=== PATIENT | male | born 1930 | race American Indian/Alaskan Native ===

== ENCOUNTER 2018-06-18 08:22 | Day surgery (SDC) | payer MEDICARE ==
[2018-06-18 10:00] LABS: Calcium 9.1 mg/dL (8.4-10.2)
[2018-06-18] MEDS ORDERED: NACL 0.9% 1000 ML 1,000 ML IV SCH (10:00)
[2018-06-18 13:42] VITALS: BP 146/85
--- NOTE | 2018-06-18 14:39 | Cat Scan Report ---
FINAL REPORT EXAM: CT ANGIO ABDOMEN PELVIS HISTORY: anuersym COMPARISON: None. TECHNIQUE: Multiple contiguous axial images were obtained from the lung bases to the pubic symphysis after administration of IV contrast. Reformatted sagittal and coronal images were available for review. 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 The aneurysm extends along a length of approximately 10 centimeters. There is intramural thrombus. There is also an aneurysm of the right common iliac artery, which measures up to 3.3 centimeters in diameter and an aneurysm of the left common iliac artery, which measures up to 2.6 centimeters in diameter. The celiac axis is patent. 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 The bilateral renal arteries are patent. The inferior mesenteric artery is not visualized and may be occluded. Lung bases: Minimal peripheral fibrotic changes. Visualized heart and mediastinum: Mild cardiomegaly. Scattered coronary artery calcifications. Liver: Normal. Spleen: Normal. Pancreas: 2.6 x 2.8 centimeter cystic lesion of the pancreatic tail. Gallbladder and Biliary Tree: No calcified gallstones. No biliary ductal dilatation. Adrenal glands: Normal. Kidneys: Symmetric enhancement to both kidneys. Several simple appearing cysts of the right kidney, measuring up to 4.2 centimeters. No hydronephrosis. Bladder: Normal. Pelvic organs: Normal prostate gland and seminal vesicles. Bowel: No evidence of obstruction. No focal wall thickening. Diverticulosis of the descending and sigmoid colon without evidence of diverticulitis. There is a ventral hernia that contains portions of the small bowel. There is no evidence of associated obstruction or incarceration. Peritoneum: No significant mesenteric adenopathy. No free air or free fluid. Bones and soft tissues: No suspicious osseous lesions.No acute fracture or dislocation. Multilevel degenerative changes of the spine. 6 x 7 centimeter midline ventral hernia containing fat and loops of small bowel. The hernia neck measures approximately 4.7 centimeters. Smaller fat containing ventral hernia, just to the left of midline measuring approximately 2 centimeters in size. IMPRESSION: 1. 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 There is a large amount of intramural plaque. 2. 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 3. 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 4. Two ventral hernias. The largest measures approximately 6 x 7 centimeters and contains fat as well as loops of small bowel. There is no evidence of associated bowel obstruction or incarceration. 5. 2.6 x 2.8 centimeters cystic lesion of the pancreatic tail. Differential diagnosis includes a cyst or pseudocyst, IPMN, or other cystic neoplasm. Recommend comparison to any previous studies. Consider further evaluation with MRI pancreatic protocol. 6. Simple cysts of the right kidney. 7. Scattered coronary artery calcifications.
== END 2018-06-18 16:00 | disposition home or self-care (01) ==
LOC: CATHLABREC 08:22 → EDSTATUS 08:45 → CATHLABREC 14:00
PROVIDERS: ATTEND Surgery Vascular Surgery
DX: I71.4 Abdominal aortic aneurysm, without rupture (principal); I72.3 Aneurysm of iliac artery; I25.10 Atherosclerotic heart disease of native coronary artery without angina pectoris; E11.22 Type 2 diabetes mellitus with diabetic chronic kidney disease; I13.10 Hypertensive heart and chronic kidney disease without heart failure, with stage 1 through stage 4 chronic kidney disease, or unspecified chronic kidney disease; N18.4 Chronic kidney disease, stage 4 (severe); E78.5 Hyperlipidemia, unspecified; Z98.890 Other specified postprocedural states
CPT/HCPCS: 36415; 74174; 80048; 96360; 96361; J7030; Q9967

== ENCOUNTER 2018-07-17 06:28 | Day surgery (SDC) | payer MEDICARE ==
[~2018-07-17 06:28] MED LIST: ANCEF/STERILE WATER 2 GM/20 ML 2 GM/20 ML SYRINGE IV NR; NACL 0.9% 1000 ML 1,000 ML IV SCH
[2018-07-17 07:35] LABS: Hematocrit 34.2 % (35.5-45.6); Hemoglobin 11.1 gm/dl (11.8-15.2); Mean Corpuscular HGB Conc 32 % (32-34); Mean Corpuscular Hemoglobin 28 pg (28-32); Mean Corpuscular Volume 87 fl (84-94); Platelet Count 274 K/mm3 (140-440); Red Blood Count 3.96 M/mm3 (3.65-5.03); Red Cell Distribution Width 16.5 % (13.2-15.2)
[2018-07-17 07:47] LABS: INR 1.05 (0.87-1.13)
[2018-07-17 07:48] LABS: Partial Thromboplastin Time 31.1 Sec. (24.2-36.6)
[2018-07-17 08:01] LABS: Calcium 9.2 mg/dL (8.4-10.2)
[2018-07-17] MEDS ORDERED: HEPARIN/NS 5000 UNIT/500ML(CATH LAB) 1,000 ML IR ONE (09:43)
[2018-07-17] MEDS ORDERED: XYLOCAINE 2% INFILTRATI ONE (09:44)
[2018-07-17] MEDS ORDERED: ANCEF/STERILE WATER 2 GM/20 ML 2 GM/20 ML SYRINGE IV ONE (10:17)
[2018-07-17] MEDS: VERSED ONE ×2 (10:21→12:16)
[2018-07-17] MEDS: SUBLIMAZE ONE ×2 (10:21→12:16)
[2018-07-17 11:31] LABS: Basophils % (Manual) 0 % (0.0-1.8); Total Cells Counted 100
[2018-07-17 11:32] LABS: Anisocytosis 1+; Ovalocytes Few; Platelet Estimate Cons; Poikilocytosis Few
[2018-07-17] MEDS: HEPARIN 10,000 UNITS/10 ML ONE ×4 (11:33→12:46)
[2018-07-17] MEDS ORDERED: HEPARIN/NS 5000 UNIT/500ML(CATH LAB) 500 ML IR ONE (11:52)
[2018-07-17] MEDS ORDERED: VERSED ONE (12:47)
[2018-07-17] MEDS ORDERED: SUBLIMAZE ONE (12:47)
--- NOTE | 2018-07-17 13:53 | Operative Report ---
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 Postoperative diagnosis: Same. Operation: Bilateral common femoral artery access under ultrasound guidance. Embolization of right. Surgeon: Fabiola Dover. Asst.: Lucas Boateng Anesthesia: moderate sedation. EBL: 50cc Findings: Right common iliac aneurysm. Indications: 87-year-old gentleman with large abdominal aortic and right common iliac aneurysm in preparation for repair scheduled to get right internal iliac artery embolization. Patient was explained the procedure in detail including all risks, benefits and alternatives of procedure. He chose to proceed and signed informed consent. Operative details: Patient was brought to the Photocopying Equipment Repairer and placed in supine position. Bilateral groins were prepped and draped in sterile fashion. Timeout was performed and all team members in agreement. Initially accessed right common femoral artery with ultrasound guidance with micropuncture needle after local anesthetic injected. Pressure wire was inserted and multiple tissue was inserted over the wire. I initially attempted to advance Bentson wire, however the right external iliac was very tortuous and I changed to stiff Napoleon wire. That was able to be advanced into the distal aorta. Changed posterior sheath to 5 Georgian access sheath. Omni flush catheter was advanced into common iliac bifurcation and multiple stems were made to get using regular leg were, stiff Glidewire,V18. I also attempted to use Rim catheter, unsuccessful. Next, left common femoral artery was accessed under US guidance, that was exchanged to a micropuncture sheath over the wire. Then I used a stiff Glidewire and advanced to the distal aorta. I attempted to get up and over into contralateral internal iliac artery using Omni flush catheter was unsuccessful. Of note, during procedure patient was heparinized initially was 2000 heparin redosed 1045 minutes. At this point, Dr. Boateng attempted to use ipsilateral side to cannulate the internal iliac artery using SOS 2 catheter. After a few attempts that was successful. The nose of the catheter was positioned in the right internal iliac artery. Choice PT wire was advanced into the artery followed by Renegade microcatheter. We used 6 coils: PV 20 x 50 Hellix x 3, 16x 40 3D, 14 x40 3D, 12x40 3D. Both access sites were closed with Accuseal
--- NOTE | 2018-07-17 13:58 | Short Stay Summary ---
Short Stay Documentation Date of service: 07/17/18 - History H&P: obtained from office - Allergies and Medications Current Medications: Allergies No Known Allergies Allergy (Verified 07/17/18 07:04) Home Medications Medication Instructions Recorded Confirmed Last Taken Type Carvedilol [Coreg] 12.5 mg PO DAILY 06/18/18 07/17/18 07/17/18 History Clonidine HCl [Kapvay] 0.1 mg PO DAILY 06/18/18 07/17/18 07/16/18 History Furosemide [Lasix] 40 mg PO DAILY 06/18/18 07/17/18 07/15/18 History Losartan Potassium [Cozaar] 25 mg PO DAILY 06/18/18 07/17/18 07/17/18 History amLODIPine [Norvasc] 5 mg PO DAILY 06/18/18 07/17/18 07/17/18 History Pantoprazole [Protonix] 40 mg PO QDAY 07/17/18 07/17/18 07/03/18 History Rosuvastatin Calcium [Crestor] 40 mg PO DAILY 07/17/18 07/17/18 07/15/18 History Active Medications Cefazolin Sodium (Ancef/Sterile Water 2 Gm/20 Ml) 2 gm in 20 mls @ 80 mls/hr IV PREOP NR; Protocol Stop: 07/17/18 23:59 Sodium Chloride (Nacl 0.9% 1000 Ml) 1,000 mls @ 42 mls/hr IV DIRECT KANG Last Admin: 07/17/18 08:04 Dose: 42 mls/hr - Brief post op/procedure progress note Date of procedure: 07/17/18 Pre-op diagnosis: AAA with right common iliac artery aneurysm Post-op diagnosis: same Procedure: right internal iliac artery embolisation Anesthesia: MAC Surgeon: CHIARA CHAMBERLAIN Deboning Team Leader: CRISTHIAN VARGAS Estimated blood loss: 50-100ml Pathology: none Condition: stable - Disposition Condition at discharge: Good Disposition: DC-01 TO HOME OR SELFCARE Short Stay Discharge Plan Diet: advance as tolerated Wound: open to air Special Instructions: no heavy lifting Follow up with: CHIARA CHAMBERLAIN DO [Primary Care Provider] - 14 Days Prescriptions: Acetaminophen/Codeine [Tylenol /Codeine # 3 tab] 1 tab PO Q6H PRN #30 tab PRN Reason: Pain , Severe (7-10)
[2018-07-17 15:57] VITALS: BP 153/95
== END 2018-07-17 16:00 | disposition home or self-care (01) ==
LOC: CATHLABREC 06:28
PROVIDERS: ATTEND Surgery Vascular Surgery
DX: I71.4 Abdominal aortic aneurysm, without rupture (principal); I10 Essential (primary) hypertension; E78.00 Pure hypercholesterolemia, unspecified; K21.9 Gastro-esophageal reflux disease without esophagitis; M19.90 Unspecified osteoarthritis, unspecified site; Z98.890 Other specified postprocedural states; Z85.038 Personal history of other malignant neoplasm of large intestine; Z79.899 Other long term (current) drug therapy; Z87.891 Personal history of nicotine dependence; Z98.42 Cataract extraction status, left eye; Z98.41 Cataract extraction status, right eye; Z79.01 Long term (current) use of anticoagulants
CPT/HCPCS: 36415; 37242; 80048; 85007; 85025; 85610; 85730; C1760; C1769; C1887; J0690; J1644; J2250; J3010; J7030; Q9967

== ENCOUNTER 2018-09-06 19:47 | Inpatient (IN) | payer MEDICARE ==
[2018-09-06 21:17] LABS: Bilirubin,Urine NEG (Negative); Blood,Urine SM (Negative); Color,Urine Straw (Yellow); Protein,Urine <15 mg/dL mg/dL (Negative); Urobilinogen,Urine < 2.0 mg/dL (<2.0)
[2018-09-06 21:47] LABS: Hemoglobin 10.3 gm/dl (11.8-15.2); Red Blood Count 3.81 M/mm3 (3.65-5.03)
[2018-09-06 21:48] LABS: Hematocrit 31.4 % (35.5-45.6); Mean Corpuscular HGB Conc 33 % (32-34); Mean Corpuscular Hemoglobin 27 pg (28-32); Mean Corpuscular Volume 83 fl (84-94); Platelet Count 348 K/mm3 (140-440); Red Cell Distribution Width 18.4 % (13.2-15.2)
[2018-09-06 21:52] LABS: Albumin 3.8 g/dL (3.9-5); Calcium 9.4 mg/dL (8.4-10.2)
[2018-09-06 22:45] LABS: Total Cells Counted 100
[2018-09-06 22:46] LABS: Platelet Estimate Consistent w Auto
--- NOTE | 2018-09-06 23:40 | Emergency Department Report ---
ED Abdominal Pain HPI - General Chief Complaint: Abdominal Pain Stated Complaint: ABD PAIN Time Seen by Provider: 09/06/18 23:39 Source: patient Mode of arrival: Ambulatory Limitations: No Limitations - History of Present Illness Initial Comments: Patient c/o epigastric abdominal pain which has been on going for 1 week. Complaint: abdominal pain -: Gradual, week(s) (1) Location: epigastric Radiation: none Migration to: no migration Severity: moderate Severity scale (0 -10): 5 Quality: sharp Consistency: constant Improves With: nothing Worsens With: nothing Associated Symptoms: denies other symptoms - Related Data Home Medications Medication Instructions Recorded Confirmed Last Taken Carvedilol [Coreg] 12.5 mg PO DAILY 06/18/18 07/27/18 07/26/18 12.5mg Clonidine HCl [Kapvay] 0.1 mg PO DAILY 06/18/18 07/27/18 07/26/18 0.1mg Furosemide [Lasix] 40 mg PO DAILY 06/18/18 07/27/18 07/26/18 40mg Losartan Potassium [Cozaar] 25 mg PO DAILY 06/18/18 07/27/18 07/26/18 25mg amLODIPine [Norvasc] 5 mg PO DAILY 06/18/18 07/27/18 07/26/18 5mg Pantoprazole [Protonix TAB] 40 mg PO QDAY 07/17/18 07/27/18 07/26/18 40mg Rosuvastatin Calcium [Crestor] 40 mg PO DAILY 07/17/18 07/27/18 07/26/18 1 tab Brimonidine Tartrate [Brimonidine 1 drop INTRAOCULA BID 07/27/18 07/27/18 Tartrate 0.2%] 1 drop Latanoprost 0.005% 1 drop INTRAOCULA HS 07/27/18 07/27/18 07/26/18 1 drop Previous Rx's Medication Instructions Recorded Last Taken Type Acetaminophen/Codeine [Tylenol 1 tab PO Q6H PRN #30 tab 07/17/18 07/26/18 Rx /Codeine # 3 tab] 1 tab oxyCODONE /ACETAMINOPHEN [Percocet 1 tab PO Q6HR PRN #20 tablet 07/29/18 Unknown Rx 5/325] Allergies Allergy/AdvReac Type Severity Reaction Status Date / Time No Known Allergies Allergy Verified 07/17/18 07:04 ED Review of Systems ROS: Stated complaint: ABD PAIN Other details as noted in HPI Comment: All other systems reviewed and negative Constitutional: denies: chills, fever Eyes: denies: eye pain ENT: denies: ear pain Respiratory: denies: cough, orthopnea, shortness of breath Cardiovascular: denies: chest pain, palpitations, dyspnea on exertion Endocrine: no symptoms reported Gastrointestinal: abdominal pain. 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) Hx Arthritis: Yes Hx Seizures: No - Surgical History Past Surgical History?: Yes Hx Internal Defibrillator: No Additional Surgical History: abd - Social History Smoking Status: Former Smoker Substance Use Type: None - Medications Home Medications: Home Medications Medication Instructions Recorded Confirmed Last Taken Type Carvedilol [Coreg] 12.5 mg PO DAILY 06/18/18 07/27/18 07/26/18 History 12.5mg Clonidine HCl [Kapvay] 0.1 mg PO DAILY 06/18/18 07/27/18 07/26/18 History 0.1mg Furosemide [Lasix] 40 mg PO DAILY 06/18/18 07/27/18 07/26/18 History 40mg Losartan Potassium [Cozaar] 25 mg PO DAILY 06/18/18 07/27/18 07/26/18 History 25mg amLODIPine [Norvasc] 5 mg PO DAILY 06/18/18 07/27/18 07/26/18 History 5mg Acetaminophen/Codeine [Tylenol 1 tab PO Q6H PRN #30 tab 07/17/18 07/27/18 Rx /Codeine # 3 tab] 1 tab Pantoprazole [Protonix TAB] 40 mg PO QDAY 07/17/18 07/27/1818 History 40mg Rosuvastatin Calcium [Crestor] 40 mg PO DAILY 07/17/18 07/27/18 07/26/18 History 1 tab Brimonidine Tartrate [Brimonidine 1 drop INTRAOCULA BID 07/27/18 07/27/18 History Tartrate 0.2%] 1 drop Latanoprost 0.005% 1 drop INTRAOCULA HS 07/27/18 07/27/18 07/26/18 History 1 drop oxyCODONE /ACETAMINOPHEN [Percocet 1 tab PO Q6HR PRN #20 tablet 07/29/18 Unknown Rx 5/325] ED Physical Exam - General Limitations: No Limitations General appearance: alert, in no apparent distress - Head Head exam: Present: atraumatic, normocephalic, normal inspection - Eye Eye exam: Present: normal appearance, PERRL, EOMI Pupils: Present: normal accommodation - ENT ENT exam: Present: normal exam, normal orophraynx, mucous membranes moist - Neck Neck exam: Present: normal inspection, full ROM. Absent: tenderness - Respiratory Respiratory exam: Present: normal lung sounds bilaterally. Absent: respiratory distress, wheezes, rales, rhonchi, stridor - Cardiovascular Cardiovascular Exam: Present: regular rate, normal rhythm, normal heart sounds - GI/Abdominal GI/Abdominal exam: Present: soft, tenderness (Epigastic), normal bowel sounds. Absent: distended, guarding, rebound, rigid - Extremities Exam Extremities exam: Present: normal inspection, full ROM, normal capillary refill - Back Exam Back exam: Present: normal inspection, full ROM. Absent: tenderness - Neurological Exam Neurological exam: Present: alert, oriented X3, CN II-XII intact - Psychiatric Psychiatric exam: Present: normal affect, normal mood - Skin Skin exam: Present: warm, dry, intact, normal color. Absent: rash ED Course Vital Signs 09/06/18 09/07/18 09/07/18 20:08 01:23 01:30 Temperature 99.2 F Pulse Rate 89 Respiratory 18 Rate Blood Pressure 175/101 161/87 161/87 O2 Sat by Pulse 98 92 92 Oximetry 09/07/18 09/07/18 09/07/18 01:46 02:38 02:46 Temperature Pulse Rate Respiratory Rate Blood Pressure 132/80 132/80 144/71 O2 Sat by Pulse 94 94 93 Oximetry 09/07/18 09/07/18 03:00 03:16 Temperature Pulse Rate Respiratory Rate Blood Pressure 144/71 140/77 O2 Sat by Pulse 91 92 Oximetry - Consultations Consultation #1: 09/07/18 04:32 I consulted the patients Vascular surgeon Dr Dover. She wants patient admitted by the hospitalist and she will evaluate patient in the morning. ED Medical Decision Making - Lab Data Result diagrams: 09/06/18 21:03 09/06/18 21:03 Lab Results 09/06/18 09/06/18 09/06/18 Range/Units 20:59 21:03 21:03 WBC 9.9 (4.5-11.0) K/mm3 RBC 3.81 (3.65-5.03) M/mm3 Hgb 10.3 L (11.8-15.2) gm/dl Hct 31.4 L (35.5-45.6) % MCV 83 L (84-94) fl MCH 27 L (28-32) pg MCHC 33 (32-34) % RDW 18.4 H (13.2-15.2) % Plt Count 348 (140-440) K/mm3 Lymph % (Auto) Director And Professor Webb % (Auto) Director And Professor Eos % (Auto) Director And Professor Baso % (Auto) Director And Professor Lymph # Director And Professor Webb # Director And Professor Eos # Director And Professor Baso # Director And Professor Add Manual Diff Complete Total Counted 100 Seg Neutrophils % Director And Professor Seg Neuts % (Manual) 63.0 (40.0-70.0) % Band Neutrophils % 0 % Lymphocytes % (Manual) 26.0 (13.4-35.0) % Reactive Lymphs % (Man) 0 % Monocytes % (Manual) 3.0 (0.0-7.3) % Eosinophils % (Manual) 7.0 H (0.0-4.3) % Basophils % (Manual) 1.0 (0.0-1.8) % Metamyelocytes % 0 % Myelocytes % 0 % Promyelocytes % 0 % Blast Cells % 0 % Nucleated RBC % Not Reportable Seg Neutrophils # Director And Professor Seg Neutrophils # Man 6.2 (1.8-7.7) K/mm3 Band Neutrophils # 0.0 K/mm3 Lymphocytes # (Manual) 2.6 (1.2-5.4) K/mm3 Abs React Lymphs (Man) 0.0 K/mm3 Monocytes # (Manual) 0.3 (0.0-0.8) K/mm3 Eosinophils # (Manual) 0.7 H (0.0-0.4) K/mm3 Basophils # (Manual) 0.1 (0.0-0.1) K/mm3 Metamyelocytes # 0.0 K/mm3 Myelocytes # 0.0 K/mm3 Promyelocytes # 0.0 K/mm3 Blast Cells # 0.0 K/mm3 WBC Morphology Not Reportable Hypersegmented Neuts Not Reportable Hyposegmented Neuts Not Reportable Hypogranular Neuts Not Reportable Smudge Cells Not Reportable Toxic Granulation Not Reportable Toxic Vacuolation Not Reportable Dohle Bodies Not Reportable Pelger-Huet Anomaly Not Reportable Rylie Rods Not Reportable Platelet Estimate Consistent w auto Clumped Platelets Not Reportable Plt Clumps, EDTA Not Reportable Large Platelets Not Reportable Giant Platelets Not Reportable Platelet Satelliting Not Reportable Plt Morphology Comment Not Reportable RBC Morphology Not Reportable Dimorphic RBCs Not Reportable Polychromasia Not Reportable Hypochromasia Not Reportable Poikilocytosis Not Reportable Anisocytosis Not Reportable Microcytosis Not Reportable Macrocytosis Not Reportable Spherocytes Not Reportable Pappenheimer Bodies Not Reportable Sickle Cells Not Reportable Target Cells Not Reportable Tear Drop Cells Not Reportable Ovalocytes Not Reportable Helmet Cells Not Reportable [place] Bodies Not Reportable [place] Rings Not Reportable Rock Cells Not Reportable Bite Cells Not Reportable Crenated Cell Not Reportable Elliptocytes Not Reportable Acanthocytes (Spur) Not Reportable Rouleaux Not Reportable Hemoglobin C Crystals Not Reportable Schistocytes Not Reportable Malaria parasites Not Reportable Gonzalo Bodies Not Reportable Hem Pathologist Commnt No Sodium 137 (137-145) mmol/L Potassium 4.7 (3.6-5.0) mmol/L Chloride 97.4 L (98-107) mmol/L Carbon Dioxide 26 (22-30) mmol/L Anion Gap 18 mmol/L BUN 23 H (9-20) mg/dL Creatinine 1.5 (0.8-1.5) mg/dL Estimated GFR 53 ml/min BUN/Creatinine Ratio 15 % Glucose 144 H (75-100) mg/dL Calcium 9.4 (8.4-10.2) mg/dL Total Bilirubin 0.20 (0.1-1.2) mg/dL AST 25 (5-40) units/L ALT 15 (7-56) units/L Alkaline Phosphatase 107 (35-129) units/L Total Protein 9.3 H (6.3-8.2) g/dL Albumin 3.8 L (3.9-5) g/dL Albumin/Globulin Ratio 0.7 % Lipase (13-60) units/L Urine Color Straw (Yellow) Urine Turbidity Clear (Clear) Urine pH 5.0 (5.0-7.0) Ur Specific [place] 1.006 (1.003-1.030) Urine Protein <15 mg/dl (Negative) mg/dL Urine Glucose (UA) Neg (Negative) mg/dL Urine Ketones Neg (Negative) mg/dL Urine Blood Sm (Negative) Urine Nitrite Neg (Negative) Urine Bilirubin Neg (Negative) Urine Urobilinogen < 2.0 (<2.0) mg/dL Ur Leukocyte Esterase Neg (Negative) Urine WBC (Auto) 1.0 (0.0-6.0) /HPF Urine RBC (Auto) 1.0 (0.0-6.0) /HPF U Epithel Cells (Auto) 1.0 (0-13.0) /HPF 09/07/18 Range/Units 00:02 WBC (4.5-11.0) K/mm3 RBC (3.65-5.03) M/mm3 Hgb (11.8-15.2) gm/dl Hct (35.5-45.6) % MCV (84-94) fl MCH (28-32) pg MCHC (32-34) % RDW (13.2-15.2) % Plt Count (140-440) K/mm3 Lymph % (Auto) Webb % (Auto) Eos % (Auto) Baso % (Auto) Lymph # Webb # Eos # Baso # Add Manual Diff Total Counted Seg Neutrophils % Seg Neuts % (Manual) (40.0-70.0) % Band Neutrophils % % Lymphocytes % (Manual) (13.4-35.0) % Reactive Lymphs % (Man) % Monocytes % (Manual) (0.0-7.3) % Eosinophils % (Manual) (0.0-4.3) % Basophils % (Manual) (0.0-1.8) % Metamyelocytes % % Myelocytes % % Promyelocytes % % Blast Cells % % Nucleated RBC % Seg Neutrophils # Seg Neutrophils # Man (1.8-7.7) K/mm3 Band Neutrophils # K/mm3 Lymphocytes # (Manual) (1.2-5.4) K/mm3 Abs React Lymphs (Man) K/mm3 Monocytes # (Manual) (0.0-0.8) K/mm3 Eosinophils # (Manual) (0.0-0.4) K/mm3 Basophils # (Manual) (0.0-0.1) K/mm3 Metamyelocytes # K/mm3 Myelocytes # K/mm3 Promyelocytes # K/mm3 Blast Cells # K/mm3 WBC Morphology Hypersegmented Neuts Hyposegmented Neuts Hypogranular Neuts Smudge Cells Toxic Granulation Toxic Vacuolation Dohle Bodies Pelger-Huet Anomaly Rylie Rods Platelet Estimate Clumped Platelets Plt Clumps, EDTA Large Platelets Giant Platelets Platelet Satelliting Plt Morphology Comment RBC Morphology Dimorphic RBCs Polychromasia Hypochromasia Poikilocytosis Anisocytosis Microcytosis Macrocytosis Spherocytes Pappenheimer Bodies Sickle Cells Target Cells Tear Drop Cells Ovalocytes Helmet Cells [place] Bodies [place] Rings Kisha Cells Bite Cells Crenated Cell Elliptocytes Acanthocytes (Spur) Rouleaux Hemoglobin C Crystals Schistocytes Malaria parasites Gonzalo Bodies Hem Pathologist Commnt Sodium (137-145) mmol/L Potassium (3.6-5.0) mmol/L Chloride (98-107) mmol/L Carbon Dioxide (22-30) mmol/L Anion Gap mmol/L BUN (9-20) mg/dL Creatinine (0.8-1.5) mg/dL Estimated GFR ml/min BUN/Creatinine Ratio % Glucose (75-100) mg/dL Calcium (8.4-10.2) mg/dL Total Bilirubin (0.1-1.2) mg/dL AST (5-40) units/L ALT (7-56) units/L Alkaline Phosphatase (35-129) units/L Total Protein (6.3-8.2) g/dL Albumin (3.9-5) g/dL Albumin/Globulin Ratio % Lipase 20 (13-60) units/L Urine Color (Yellow) Urine Turbidity (Clear) Urine pH (5.0-7.0) Ur Specific [place] (1.003-1.030) Urine Protein (Negative) mg/dL Urine Glucose (UA) (Negative) mg/dL Urine Ketones (Negative) mg/dL Urine Blood (Negative) Urine Nitrite (Negative) Urine Bilirubin (Negative) Urine Urobilinogen (<2.0) mg/dL Ur Leukocyte Esterase (Negative) Urine WBC (Auto) (0.0-6.0) /HPF Urine RBC (Auto) (0.0-6.0) /HPF U Epithel Cells (Auto) (0-13.0) /HPF - Radiology Data Radiology results: report reviewed, image reviewed - Medical Decision Making Patient will be evaluated by the Vascular Surgeon today. Critical Care Time: Yes Critical care time in (mins) excluding proc time.: 35 Critical care attestation.: If time is entered above; I have spent that time in minutes in the direct care of this critically ill patient, excluding procedure time. ED Disposition Clinical Impression: Abdominal pain Qualifiers: Abdominal location: epigastric Qualified Code(s): R10.13 - Epigastric pain AAA (abdominal aortic aneurysm) Qualifiers: Presence of rupture: without rupture Qualified Code(s): I71.4 - Abdominal aortic aneurysm, without rupture Disposition: -09 OP ADMIT IP TO THIS HOSP Is pt being admited?: Yes Does the pt Need Aspirin: No Condition: Stable Time of Disposition: 04:32
[2018-09-06] MEDS ORDERED: NORMODYNE IV ONE (23:46)
[2018-09-06] MEDS ORDERED: NACL 0.9% 1000 ML 1,000 ML IV ONE (23:46)
[2018-09-06] MEDS ORDERED: MORPHINE IV ONE (23:47)
[2018-09-06] MEDS ORDERED: ZOFRAN IV ONE (23:47)
--- NOTE | 2018-09-07 03:29 | Cat Scan Report ---
FINAL REPORT EXAM: CT ABDOMEN PELVIS W CON HISTORY: abdominal pain TECHNIQUE: Helical CT scan through the abdomen and pelvis during intravenous injection of iodinated contrast. Images are reconstructed in the sagittal and coronal planes. Oral contrast was not given. PRIORS: 06/18/2018 FINDINGS: There is interstitial thickening in the bilateral lung bases, increased from the previous exam. The heart is enlarged. The heart was not completely scanned. There is an umbilical hernia containing normal appearing loops of small bowel without evidence of obstruction. There has been interval endo graft placement for a distal aortic/bilateral common iliac artery aneurysm. Presently the distal aorta measures 7.5 x 7.3 cm. Previously measured 7.4 x 7.3 cm. There is a small amount of contrast opacified blood in the posterior aortic aneurysm that appears to come from a lumbar artery. The contrast opacification dissipates on the delayed images. The stent opacifies normally. The proximal common right common iliac artery measures 3.5 cm in diameter, previously measuring 3.3 cm. The left common iliac artery measures 2.3 cm, previously measuring 2.5 cm. The iliac and visualized proximal femoral arteries opacify normally. There stenosis of the proximal SMA without significant change. Otherwise, the abdominal branches opacify normally. There is a cyst arising from the tail of the pancreas, presently measuring 3.0 x 2.3 cm and previously measuring 2.9 x 2.7 cm. The liver, gallbladder, spleen and adrenal glands appear normal. There are multiple right renal cysts with the largest measuring 4.4 x 3.3 cm. The left kidney appears normal. There is no hydronephrosis or urolithiasis. The pelvic organs appear grossly normal. The stomach is empty and appears grossly within normal limits. There are no abnormally dilated loops of bowel or acute inflammatory changes. There is colonic diverticulosis without evidence of acute diverticulitis. A normal-appearing appendix is identified. The abdominal aorta has a normal diameter. There is multilevel degenerative disc disease of the lower thoracic and lumbar spine. IMPRESSION: 1. Bibasilar interstitial thickening probably represents pulmonary edema although could also represent pneumonia. 2. Interval aorto bi iliac endo graft placement. The aortic and bilateral proximal iliac arteries have remained stable in size. There is some opacification of the posterior aortic aneurysm that appears to be coming from flow (probably retrograde) from a spinal artery. 3. Stable pancreatic tail cyst. Recommend follow-up CT in 1 year. 4. Umbilical hernia containing a normal-appearing loop of small bowel without evidence bowel obstruction. 5. Diverticulosis without evidence of acute diverticulitis. I gave a verbal report by phone to Dr. Salguero at 3:24 a.m. eastern daylight time.
[2018-09-07] MEDS ORDERED: ZOFRAN IV PRN (04:52)
[2018-09-07] MEDS ORDERED: MORPHINE IV PRN (04:52)
[2018-09-07] MEDS ORDERED: SODIUM CHLORIDE FLUSH SYRINGE 10 ML IV PRN (04:52)
[2018-09-07] MEDS ORDERED: TYLENOL PO PRN (04:52)
--- NOTE | 2018-09-07 04:58 | History and Physical Report ---
History of Present Illness Date of examination: 09/07/18 History of present illness: 87 year old man history of hypertension, lung cancer, abdominal aortic aneurysm status post repair in July 29 cups emergency room with compressive abdominal pain that started 1 week ago. He describes the pain as sharp, unable to say along the classroom, intensity 8/10, no radiation, cannot identify exacerbating or relieving factors. She states the pain keeps him from sleeping, no nausea vomiting Review of systems Constitutional: no weight loss, chills, fever Ears, eyes, nose, mouth and throat: no nasal congestion, no nasal discharge, no sinus pressure, no vision change, no red eye. Neck: No neck pain or rigidity. Cardiovascular: no chest pain, palpitations Respiratory: no cough, shortness of breath Gastrointestinal: no hematochezia Genitourinary : no frequency , no hematuria Musculoskeletal: no joint swelling or muscle ache Integumentary: no rash, no pruritis Neurological: no parathesias, no numbness, no focal weakness Endocrine: no cold or heat intolerance, no polyuria or polydipsia Hematologic/Lymphatic: no easy bruising, no easy bleeding, no gland swelling Allergic/Immunologic: no urticaria, no angioedema. PAST MEDICAL HISTORY: hypertension, colon cancer, abdominal aortic aneurysm status post repair PAST SURGICAL HISTORY: Aneurysm repair, part of the colon removed SOCIAL HISTORY: No alcohol, no drugs, tobacco FAMILY HISTORY: Hypertension Medications and Allergies Allergies Allergy/AdvReac Type Severity Reaction Status Date / Time No Known Allergies Allergy Verified 07/17/18 07:04 Home Medications Medication Instructions Recorded Confirmed Last Taken Type Carvedilol [Coreg] 12.5 mg PO DAILY 06/18/18 07/27/18 07/26/18 History 12.5mg Clonidine HCl [Kapvay] 0.1 mg PO DAILY 06/18/18 07/27/18 07/26/18 History 0.1mg Furosemide [Lasix] 40 mg PO DAILY 06/18/18 07/27/18 07/26/18 History 40mg Losartan Potassium [Cozaar] 25 mg PO DAILY 06/18/18 07/27/18 07/26/18 History 25mg amLODIPine [Norvasc] 5 mg PO DAILY 06/18/18 07/27/18 07/26/18 History 5mg Acetaminophen/Codeine [Tylenol 1 tab PO Q6H PRN #30 tab 07/17/18 07/27/18 Rx /Codeine # 3 tab] 1 tab Pantoprazole [Protonix TAB] 40 mg PO QDAY 07/17/18 07/27/18 07/26/18 History 40mg Rosuvastatin Calcium [Crestor] 40 mg PO DAILY 07/17/18 07/27/18 07/26/18 History 1 tab Brimonidine Tartrate [Brimonidine 1 drop INTRAOCULA BID 07/27/18 07/27/18 History Tartrate 0.2%] 1 drop Latanoprost 0.005% 1 drop INTRAOCULA HS 07/27/18 07/27/18 07/26/18 History 1 drop oxyCODONE /ACETAMINOPHEN [Percocet 1 tab PO Q6HR PRN #20 tablet 07/29/18 Unknown Rx 5/325] Exam - Physical Exam Narrative exam: Gen. appearance: Patient lying in bed, no apparent distress HEENT: Normocephalic, atraumatic, pupils equally round and reactive to light, extraocular movement intact, and no sclericterus,. No JVD or thyromegaly or nodule,neck supple, no carotid bruit ,mucous membranes moist, no exudate or erythema Heart: S1, S2, regular rate and rhythm Lungs: Clear bilaterally, breathing comfortable Abdomen: Positive bowel sounds, tender in the epigastric area, nondistended, no organomegaly Extremity:no edema cyanosis, clubbing Skin: no rash, dry, warm Neuro: Oriented 3, cranial nerves II-12 intact, speech is fluent, motor and sensory intact - Constitutional Vitals: Temp Pulse Resp BP Pulse Ox 99.2 F 89 18 140/77 92 09/06/18 20:08 09/06/18 20:08 09/06/18 20:08 09/07/18 03:16 09/07/18 03:16 Results - Labs CBC & Chem 7: 09/06/18 21:03 09/06/18 21:03 Labs: Abnormal lab results 09/06/18 09/06/18 Range/Units 21:03 21:03 Hgb 10.3 L (11.8-15.2) gm/dl Hct 31.4 L (35.5-45.6) % MCV 83 L (84-94) fl MCH 27 L (28-32) pg RDW 18.4 H (13.2-15.2) % Eosinophils % (Manual) 7.0 H (0.0-4.3) % Eosinophils # (Manual) 0.7 H (0.0-0.4) K/mm3 Chloride 97.4 L (98-107) mmol/L BUN 23 H (9-20) mg/dL Glucose 144 H (75-100) mg/dL Total Protein 9.3 H (6.3-8.2) g/dL Albumin 3.8 L (3.9-5) g/dL - Imaging and Cardiology CT scan - abdomen: report reviewed CT scan - pelvis: report reviewed Assessment and Plan Assessment Opacification of the posterior aortic aneurysm Hypertension Plan Admit to medicine Placed on bowel rest, vascular surgery consulted to see the patient Gentle IV fluids, IV morphine DvT prophylaxis with SCDs
[2018-09-07] MEDS ORDERED: NACL 0.45% 1000 ML 1,000 ML IV SCH (05:00)
[2018-09-07] MEDS: COREG PO SCH (09:20)
[2018-09-07] MEDS: NORVASC PO SCH (09:20)
[2018-09-07] MEDS: SODIUM CHLORIDE FLUSH SYRINGE 10 ML IV SCH ×2 (09:44→22:21)
[2018-09-07] MEDS ORDERED: APRESOLINE IV ONE (10:00)
[2018-09-07] MEDS ORDERED: APRESOLINE IV PRN (10:05)
--- NOTE | 2018-09-07 10:48 | Consultation ---
History of Present Illness - Reason for Consult Consult date: 09/07/18 abdominal pain Requesting physician: FANNY BRADFORD - History of Present Illness Patient came to ED c/o epigastric abdominal pain for 1 week. It started more severe at that time and then it was ongoing less severe. He was getting uncomfortable and decided to come to ED. He denied nausea/vomiting, blood in the stool. He admits to have some constipation and seaid pain is more like being bloated. He has + flatus and BM. He denies back/flank pain. Patient had EVAR for AAA on 07/27. CTA done today and showed small type 2 endoleak. Aneurysmal sac is essentially unchanged. vascular surgery consulted. Past History Past Medical History: hypertension, other (CKD 3) Past Surgical History: abd. aortic aneurysm repair, bowel surgery (colon resection for colon Ca), Other (umbilical hernia) Medications and Allergies Allergies Allergy/AdvReac Type Severity Reaction Status Date / Time No Known Allergies Allergy Verified 07/17/18 07:04 Home Medications Medication Instructions Recorded Confirmed Last Taken Type Carvedilol [Coreg] 12.5 mg PO DAILY 06/18/18 07/27/18 07/26/18 History 12.5mg Clonidine HCl [Kapvay] 0.1 mg PO DAILY 06/18/18 07/27/18 07/26/18 History 0.1mg Furosemide [Lasix] 40 mg PO DAILY 06/18/18 07/27/18 07/26/18 History 40mg Losartan Potassium [Cozaar] 25 mg PO DAILY 06/18/18 07/27/18 07/26/18 History 25mg amLODIPine [Norvasc] 5 mg PO DAILY 06/18/18 07/27/18 07/26/18 History 5mg Acetaminophen/Codeine [Tylenol 1 tab PO Q6H PRN #30 tab 07/17/18 07/27/18 Rx /Codeine # 3 tab] 1 tab Pantoprazole [Protonix TAB] 40 mg PO QDAY 07/17/18 07/27/18 07/26/18 History 40mg Rosuvastatin Calcium [Crestor] 40 mg PO DAILY 07/17/18 07/27/18 07/26/18 History 1 tab Brimonidine Tartrate [Brimonidine 1 drop INTRAOCULA BID 07/27/18 07/27/18 History Tartrate 0.2%] 1 drop Latanoprost 0.005% 1 drop INTRAOCULA HS 07/27/18 07/27/18 07/26/18 History 1 drop oxyCODONE /ACETAMINOPHEN [Percocet 1 tab PO Q6HR PRN #20 tablet 07/29/18 Unknown Rx 5/325] Active Meds: Active Medications Acetaminophen (Tylenol) 650 mg PO Q4H PRN PRN Reason: Pain MILD(1-3)/Fever >100.5/HERRERA Amlodipine Besylate (Norvasc) 5 mg PO DAILY [facility] Last Admin: 09/07/18 09:20 Dose: Not Given Atorvastatin Calcium (Lipitor) 40 mg PO QHS [facility] Carvedilol (Coreg) 12.5 mg PO DAILY [facility] Last Admin: 09/07/18 09:20 Dose: Not Given Hydralazine HCl (Apresoline) 10 mg IV Q30MIN PRN PRN Reason: Hypertension Sodium Chloride (Nacl 0.45% 1000 Ml) 1,000 mls @ 42 mls/hr IV DIRECT [facility] Morphine Sulfate (Morphine) 1 mg IV Q4H PRN PRN Reason: Pain, Moderate (4-6) Ondansetron HCl (Zofran) 4 mg IV Q4H PRN PRN Reason: Nausea And Vomiting Sodium Chloride (Sodium Chloride Flush Syringe 10 Ml) 10 ml IV BID [facility] Last Admin: 09/07/18 09:44 Dose: 10 ml Sodium Chloride (Sodium Chloride Flush Syringe 10 Ml) 10 ml IV PRN PRN PRN Reason: LINE FLUSH Review of Systems All systems: negative (mentioned in HPI) Exam - Physical Exam Narrative exam: patient has epigastric tenderness. Large umbilical hernia is easily reducable - Constitutional Vitals: Temp Pulse Resp BP Pulse Ox 99.2 F 78 18 178/70 96 09/06/18 20:08 09/07/18 09:45 09/07/18 08:00 09/07/18 09:45 09/07/18 08:00 General appearance: Present: no acute distress - Cardiovascular Rhythm: regular - Extremities Extremities: no ischemia Peripheral Pulses: within normal limits - Abdominal General gastrointestinal: Present: tender (in the epigastric area) Results - Labs CBC & Chem 7: 09/06/18 21:03 09/06/18 21:03 Labs: Abnormal lab results 09/06/18 09/06/18 Range/Units 21:03 21:03 Hgb 10.3 L (11.8-15.2) gm/dl Hct 31.4 L (35.5-45.6) % MCV 83 L (84-94) fl MCH 27 L (28-32) pg RDW 18.4 H (13.2-15.2) % Eosinophils % (Manual) 7.0 H (0.0-4.3) % Eosinophils # (Manual) 0.7 H (0.0-0.4) K/mm3 Chloride 97.4 L (98-107) mmol/L BUN 23 H (9-20) mg/dL Glucose 144 H (75-100) mg/dL Total Protein 9.3 H (6.3-8.2) g/dL Albumin 3.8 L (3.9-5) g/dL - Imaging and Cardiology CT scan - abdomen: report reviewed Assessment and Plan patient s/p EVAR with small type 2 endoleak aneurysmal sac unchanged which is expected for 6 weeks postop no need for any vascular intervention at this time ok to downgrade from ICU from vascular stand point will f/u in the office after discharge and continue surveillance as scheduled
[2018-09-07] MEDS ORDERED: D5NS 1,000 ML IV SCH (11:00)
[2018-09-07 11:34] LABS: BUN/Creatinine Ratio 14; Blood Urea Nitrogen 18 mg/dL (9-20); Calcium 9.2 mg/dL (8.4-10.2); Hemolysis Index 9
[2018-09-07] MEDS ORDERED: CATAPRES-TTS PATCH TD SCH (12:00)
[2018-09-07] MEDS: PROTONIX IV SCH ×2 (13:15→22:20)
--- NOTE | 2018-09-07 14:03 | Gastroenterology Consultation ---
<DREW WASHINGTON - Last Filed: 09/07/18 14:40> History of Present Illness - Reason for Consult Consult date: 09/07/18 Epigastric/ abdominal pain Requesting physician: HEATH CONTRERAS - History of Present Illness Mr Ribera is an 87 y/o male admitted with reports of epigastric/ periumbilical pain x 1 week. He is s/p AAA repair/ endograft in 07/2018. He was concerned regarding the surgery and presented to the ED. 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 His pain comes and goes and is sometimes exacerbated by eating. Currently, he has no pain. No N/V. No blood per stool or melena. [place], he reports as normal. He occasionally takes Advil and an 81 mg ASA. CTA revealed stable pancreatic tail cyst and nonobstructive umbilical hernia. LFTS negative, Lipase negative. He was initially admitted to the ICU, but has been cleared for regular room by vascular. Past History Past Medical History: hypertension, other (CKD 3) Past Surgical History: abd. aortic aneurysm repair, bowel surgery (colon resection for colon Ca), Other (umbilical hernia) Social history: lives with family Family history: no significant family history Medications and Allergies Allergies Allergy/AdvReac Type Severity Reaction Status Date / Time No Known Allergies Allergy Verified 07/17/18 07:04 Home Medications Medication Instructions Recorded Confirmed Last Taken Type Carvedilol [Coreg] 12.5 mg PO DAILY 06/18/18 09/07/18 07/26/18 History 12.5mg Clonidine HCl [Kapvay] 0.1 mg PO DAILY 06/18/18 09/07/18 07/26/18 History 0.1mg Furosemide [Lasix] 40 mg PO DAILY 06/18/18 09/07/18 07/26/18 History 40mg Losartan Potassium [Cozaar] 25 mg PO DAILY 06/18/18 09/07/18 07/26/18 History 25mg amLODIPine [Norvasc] 5 mg PO DAILY 06/18/18 09/07/18 07/26/18 History 5mg Acetaminophen/Codeine [Tylenol 1 tab PO Q6H PRN #30 tab 07/17/18 09/07/18 Rx /Codeine # 3 tab] 1 tab Pantoprazole [Protonix TAB] 40 mg PO QDAY PRN 07/17/18 09/07/18 07/26/18 History 40mg Rosuvastatin Calcium [Crestor] 40 mg PO DAILY 07/17/18 09/07/18 07/26/18 History 1 tab Brimonidine Tartrate [Brimonidine 1 drop INTRAOCULA BID 07/27/18 09/07/18 History Tartrate 0.2%] 1 drop Latanoprost 0.005% 1 drop INTRAOCULA HS 07/27/18 09/07/18 07/26/18 History 1 drop oxyCODONE /ACETAMINOPHEN [Percocet 1 tab PO Q6HR PRN #20 tablet 07/29/18 Unknown Rx 5/325] Active Meds: Active Medications Acetaminophen (Tylenol) 650 mg PO Q4H PRN PRN Reason: Pain MILD(1-3)/Fever >100.5/HERRERA Amlodipine Besylate (Norvasc) 5 mg PO DAILY [facility] Last Admin: 09/07/18 09:20 Dose: Not Given Atorvastatin Calcium (Lipitor) 40 mg PO QHS [facility] Carvedilol (Coreg) 12.5 mg PO DAILY [facility] Last Admin: 09/07/18 09:20 Dose: Not Given Clonidine HCl (Catapres-Tts Patch) 0.3 mg TD Mo [facility] Last Admin: 09/07/18 13:34 Dose: 0.3 mg Hydralazine HCl (Apresoline) 10 mg IV Q30MIN PRN PRN Reason: Hypertension Dextrose/Sodium Chloride (D5ns) 1,000 mls @ 75 mls/hr IV DIRECT [facility] Morphine Sulfate (Morphine) 1 mg IV Q4H PRN PRN Reason: Pain, Moderate (4-6) Ondansetron HCl (Zofran) 4 mg IV Q4H PRN PRN Reason: Nausea And Vomiting Pantoprazole Sodium (Protonix) 40 mg IV BID [facility] Last Admin: 09/07/18 13:15 Dose: 40 mg Sodium Chloride (Sodium Chloride Flush Syringe 10 Ml) 10 ml IV BID [facility] Last Admin: 09/07/18 09:44 Dose: 10 ml Sodium Chloride (Sodium Chloride Flush Syringe 10 Ml) 10 ml IV PRN PRN PRN Reason: LINE FLUSH Review of Systems - Review of Systems All systems: negative Gastrointestinal: abdominal pain Exam - Constitutional Vital Signs: Temp Pulse Resp BP Pulse Ox 99.2 F 105 H 15 162/94 96 09/06/18 20:08 09/07/18 13:34 09/07/18 11:10 09/07/18 13:34 09/07/18 08:00 General appearance: no acute distress - EENT Eyes: EOM intact ENT: hearing intact - Neck Neck: supple - Respiratory Respiratory: bilateral: CTA - Cardiovascular Rhythm: regular Heart Sounds: Present: S1 & S2 Extremities: No edema, Full ROM - Gastrointestinal General gastrointestinal: Present: soft, non-tender, distended, normal bowel sounds - Integumentary Integumentary: Present: warm, dry - Neurologic Neurological: alert and oriented x3 - Psychiatric Psychiatric: appropriate mood/affect, cooperative - Labs CBC & Chem 7: 09/06/18 21:03 09/07/18 10:54 Lab Results: Laboratory Results - last 24 hr 09/06/18 09/06/18 09/06/18 20:59 21:03 21:03 WBC 9.9 RBC 3.81 Hgb 10.3 L Hct 31.4 L MCV 83 L MCH 27 L MCHC 33 RDW 18.4 H Plt Count 348 Lymph % (Auto) Associate Programmer Analyst [place] % (Auto) Associate Programmer Analyst Eos % (Auto) Associate Programmer Analyst Baso % (Auto) Associate Programmer Analyst Lymph # Associate Programmer Analyst [place] # Associate Programmer Analyst Eos # Associate Programmer Analyst Baso # Associate Programmer Analyst Add Manual Diff Complete Total Counted 100 Seg Neutrophils % Associate Programmer Analyst Seg Neuts % (Manual) 63.0 Band Neutrophils % 0 Lymphocytes % (Manual) 26.0 Reactive Lymphs % (Man) 0 Monocytes % (Manual) 3.0 Eosinophils % (Manual) 7.0 H Basophils % (Manual) 1.0 Metamyelocytes % 0 Myelocytes % 0 Promyelocytes % 0 Blast Cells % 0 Nucleated RBC % Not Reportable Seg Neutrophils # Associate Programmer Analyst Seg Neutrophils # Man 6.2 Band Neutrophils # 0.0 Lymphocytes # (Manual) 2.6 Abs React Lymphs (Man) 0.0 Monocytes # (Manual) 0.3 Eosinophils # (Manual) 0.7 H Basophils # (Manual) 0.1 Metamyelocytes # 0.0 Myelocytes # 0.0 Promyelocytes # 0.0 Blast Cells # 0.0 WBC Morphology Not Reportable Hypersegmented Neuts Not Reportable Hyposegmented Neuts Not Reportable Hypogranular Neuts Not Reportable Smudge Cells Not Reportable Toxic Granulation Not Reportable Toxic Vacuolation Not Reportable Dohle Bodies Not Reportable Pelger-Huet Anomaly Not Reportable Rylie Rods Not Reportable Platelet Estimate Consistent w auto Clumped Platelets Not Reportable Plt Clumps, EDTA Not Reportable Large Platelets Not Reportable Giant Platelets Not Reportable Platelet Satelliting Not Reportable Plt Morphology Comment Not Reportable RBC Morphology Not Reportable Dimorphic RBCs Not Reportable Polychromasia Not Reportable Hypochromasia Not Reportable Poikilocytosis Not Reportable Anisocytosis Not Reportable Microcytosis Not Reportable Macrocytosis Not Reportable Spherocytes Not Reportable Pappenheimer Bodies Not Reportable Sickle Cells Not Reportable Target Cells Not Reportable Tear Drop Cells Not Reportable Ovalocytes Not Reportable Helmet Cells Not Reportable [place]av[place] Bodies Not Reportable [place] Rings Not Reportable Kisha Cells Not Reportable Bite Cells Not Reportable Crenated Cell Not Reportable Elliptocytes Not Reportable Acanthocytes (Spur) Not Reportable Rouleaux Not Reportable Hemoglobin C Crystals Not Reportable Schistocytes Not Reportable Malaria parasites Not Reportable Gonzalo Bodies Not Reportable Hem Pathologist Commnt No Sodium 137 Potassium 4.7 Chloride 97.4 L Carbon Dioxide 26 Anion Gap 18 BUN 23 H Creatinine 1.5 Estimated GFR 53 BUN/Creatinine Ratio 15 Glucose 144 H Calcium 9.4 Total Bilirubin 0.20 AST 25 ALT 15 Alkaline Phosphatase 107 Total Protein 9.3 H Albumin 3.8 L Albumin/Globulin Ratio 0.7 Lipase Urine Color Straw Urine Turbidity Clear Urine pH 5.0 Ur Specific [place] 1.006 Urine Protein <15 mg/dl Urine Glucose (UA) Neg Urine Ketones Neg Urine Blood Sm Urine Nitrite Neg Urine Bilirubin Neg Urine Urobilinogen < 2.0 Ur Leukocyte Esterase Neg Urine WBC (Auto) 1.0 Urine RBC (Auto) 1.0 U Epithel Cells (Auto) 1.0 09/07/18 09/07/18 00:02 10:54 WBC RBC Hgb Hct MCV MCH MCHC RDW Plt Count Lymph % (Auto) [place] % (Auto) Eos % (Auto) Baso % (Auto) Lymph # [place] # Eos # Baso # Add Manual Diff Total Counted Seg Neutrophils % Seg Neuts % (Manual) Band Neutrophils % Lymphocytes % (Manual) Reactive Lymphs % (Man) Monocytes % (Manual) Eosinophils % (Manual) Basophils % (Manual) Metamyelocytes % Myelocytes % Promyelocytes % Blast Cells % Nucleated RBC % Seg Neutrophils # Seg Neutrophils # Man Band Neutrophils # Lymphocytes # (Manual) Abs React Lymphs (Man) Monocytes # (Manual) Eosinophils # (Manual) Basophils # (Manual) Metamyelocytes # Myelocytes # Promyelocytes # Blast Cells # WBC Morphology Hypersegmented Neuts Hyposegmented Neuts Hypogranular Neuts Smudge Cells Toxic Granulation Toxic Vacuolation Dohle Bodies Pelger-Huet Anomaly Rylie Rods Platelet Estimate Clumped Platelets Plt Clumps, EDTA Large Platelets Giant Platelets Platelet Satelliting Plt Morphology Comment RBC Morphology Dimorphic RBCs Polychromasia Hypochromasia Poikilocytosis Anisocytosis Microcytosis Macrocytosis Spherocytes Pappenheimer Bodies Sickle Cells Target Cells Tear Drop Cells Ovalocytes Helmet Cells [place] Bodies [place] Rings [place] Cells Bite Cells Crenated Cell Elliptocytes Acanthocytes (Spur) Rouleaux Hemoglobin C Crystals Schistocytes Malaria parasites Gonzalo Bodies Hem Pathologist Commnt Sodium 137 Potassium 4.4 Chloride 99.7 Carbon Dioxide 23 Anion Gap 19 BUN 18 Creatinine 1.3 Estimated GFR > 60 BUN/Creatinine Ratio 14 Glucose 150 H Calcium 9.2 Total Bilirubin AST ALT Alkaline Phosphatase Total Protein Albumin Albumin/Globulin Ratio Lipase 20 Urine Color Urine Turbidity Urine pH Ur Specific [place] Urine Protein Urine Glucose (UA) Urine Ketones Urine Blood Urine Nitrite Urine Bilirubin Urine Urobilinogen Ur Leukocyte Esterase Urine WBC (Auto) Urine RBC (Auto) U Epithel Cells (Auto) Assessment and Plan 1. Epigastric/ Abdominal pain - LFTS WNL - Lipase WNL - CTA with no acute process and recent surgical area stable per vascular - H/H stable and improved from prior admission - PPI daily - US gallbladder - Further recommendations to follow. <OCTAVIO BUENO R - Last Filed: 09/07/18 17:02> Medications and Allergies Active Meds: Active Medications Acetaminophen (Tylenol) 650 mg PO Q4H PRN PRN Reason: Pain MILD(1-3)/Fever >100.5/HERRERA Amlodipine Besylate (Norvasc) 5 mg PO DAILY [facility] Last Admin: 09/07/18 09:20 Dose: Not Given Atorvastatin Calcium (Lipitor) 40 mg PO QHS [facility] Carvedilol (Coreg) 12.5 mg PO DAILY [facility] Last Admin: 09/07/18 09:20 Dose: Not Given Clonidine HCl (Catapres-Tts Patch) 0.3 mg TD Mo [facility] Last Admin: 09/07/18 13:34 Dose: 0.3 mg Hydralazine HCl (Apresoline) 10 mg IV Q30MIN PRN PRN Reason: Hypertension Dextrose/Sodium Chloride (D5ns) 1,000 mls @ 75 mls/hr IV DIRECT [facility] Morphine Sulfate (Morphine) 1 mg IV Q4H PRN PRN Reason: Pain, Moderate (4-6) Ondansetron HCl (Zofran) 4 mg IV Q4H PRN PRN Reason: Nausea And Vomiting Pantoprazole Sodium (Protonix) 40 mg IV BID [facility] Last Admin: 09/07/18 13:15 Dose: 40 mg Sodium Chloride (Sodium Chloride Flush Syringe 10 Ml) 10 ml IV BID [facility] Last Admin: 09/07/18 09:44 Dose: 10 ml Sodium Chloride (Sodium Chloride Flush Syringe 10 Ml) 10 ml IV PRN PRN PRN Reason: LINE FLUSH Exam - Constitutional Vital Signs: Temp Pulse Resp BP Pulse Ox 97.8 F 83 18 140/58 97 09/07/18 14:46 09/07/18 14:46 09/07/18 14:46 09/07/18 14:46 09/07/18 14:46 - Labs CBC & Chem 7: 09/06/18 21:03 09/07/18 10:54 Lab Results: Laboratory Results - last 24 hr 09/06/18 09/06/18 09/06/18 20:59 21:03 21:03 WBC 9.9 RBC 3.81 Hgb 10.3 L Hct 31.4 L MCV 83 L MCH 27 L MCHC 33 RDW 18.4 H Plt Count 348 Lymph % (Auto) Associate Programmer Analyst [place] % (Auto) Associate Programmer Analyst Eos % (Auto) Associate Programmer Analyst Baso % (Auto) Associate Programmer Analyst Lymph # Associate Programmer Analyst [place] # Associate Programmer Analyst Eos # Associate Programmer Analyst Baso # Associate Programmer Analyst Add Manual Diff Complete Total Counted 100 Seg Neutrophils % Associate Programmer Analyst Seg Neuts % (Manual) 63.0 Band Neutrophils % 0 Lymphocytes % (Manual) 26.0 Reactive Lymphs % (Man) 0 Monocytes % (Manual) 3.0 Eosinophils % (Manual) 7.0 H Basophils % (Manual) 1.0 Metamyelocytes % 0 Myelocytes % 0 Promyelocytes % 0 Blast Cells % 0 Nucleated RBC % Not Reportable Seg Neutrophils # Associate Programmer Analyst Seg Neutrophils # Man 6.2 Band Neutrophils # 0.0 Lymphocytes # (Manual) 2.6 Abs React Lymphs (Man) 0.0 Monocytes # (Manual) 0.3 Eosinophils # (Manual) 0.7 H Basophils # (Manual) 0.1 Metamyelocytes # 0.0 Myelocytes # 0.0 Promyelocytes # 0.0 Blast Cells # 0.0 WBC Morphology Not Reportable Hypersegmented Neuts Not Reportable Hyposegmented Neuts Not Reportable Hypogranular Neuts Not Reportable Smudge Cells Not Reportable Toxic Granulation Not Reportable Toxic Vacuolation Not Reportable Dohle Bodies Not Reportable Pelger-Huet Anomaly Not Reportable Rylie Rods Not Reportable Platelet Estimate Consistent w auto Clumped Platelets Not Reportable Plt Clumps, EDTA Not Reportable Large Platelets Not Reportable Giant Platelets Not Reportable Platelet Satelliting Not Reportable Plt Morphology Comment Not Reportable RBC Morphology Not Reportable Dimorphic RBCs Not Reportable Polychromasia Not Reportable Hypochromasia Not Reportable Poikilocytosis Not Reportable Anisocytosis Not Reportable Microcytosis Not Reportable Macrocytosis Not Reportable Spherocytes Not Reportable Pappenheimer Bodies Not Reportable Sickle Cells Not Reportable Target Cells Not Reportable Tear Drop Cells Not Reportable Ovalocytes Not Reportable Helmet Cells Not Reportable Zavala-[place] Bodies Not Reportable [place] Rings Not Reportable Kisha Cells Not Reportable Bite Cells Not Reportable Crenated Cell Not Reportable Elliptocytes Not Reportable Acanthocytes (Spur) Not Reportable Rouleaux Not Reportable Hemoglobin C Crystals Not Reportable Schistocytes Not Reportable Malaria parasites Not Reportable Gonzalo Bodies Not Reportable Hem Pathologist Commnt No Sodium 137 Potassium 4.7 Chloride 97.4 L Carbon Dioxide 26 Anion Gap 18 BUN 23 H Creatinine 1.5 Estimated GFR 53 BUN/Creatinine Ratio 15 Glucose 144 H Calcium 9.4 Total Bilirubin 0.20 AST 25 ALT 15 Alkaline Phosphatase 107 Total Protein 9.3 H Albumin 3.8 L Albumin/Globulin Ratio 0.7 Lipase Urine Color Straw Urine Turbidity Clear Urine pH 5.0 Ur Specific [place] 1.006 Urine Protein <15 mg/dl Urine Glucose (UA) Neg Urine Ketones Neg Urine Blood Sm Urine Nitrite Neg Urine Bilirubin Neg Urine Urobilinogen < 2.0 Ur Leukocyte Esterase Neg Urine WBC (Auto) 1.0 Urine RBC (Auto) 1.0 U Epithel Cells (Auto) 1.0 09/07/18 09/07/18 00:02 10:54 WBC RBC Hgb Hct MCV MCH MCHC RDW Plt Count Lymph % (Auto) [place] % (Auto) Eos % (Auto) Baso % (Auto) Lymph # [place] # Eos # Baso # Add Manual Diff Total Counted Seg Neutrophils % Seg Neuts % (Manual) Band Neutrophils % Lymphocytes % (Manual) Reactive Lymphs % (Man) Monocytes % (Manual) Eosinophils % (Manual) Basophils % (Manual) Metamyelocytes % Myelocytes % Promyelocytes % Blast Cells % Nucleated RBC % Seg Neutrophils # Seg Neutrophils # Man Band Neutrophils # Lymphocytes # (Manual) Abs React Lymphs (Man) Monocytes # (Manual) Eosinophils # (Manual) Basophils # (Manual) Metamyelocytes # Myelocytes # Promyelocytes # Blast Cells # WBC Morphology Hypersegmented Neuts Hyposegmented Neuts Hypogranular Neuts Smudge Cells Toxic Granulation Toxic Vacuolation Dohle Bodies Pelger-Huet Anomaly Rylie Rods Platelet Estimate Clumped Platelets Plt Clumps, EDTA Large Platelets Giant Platelets Platelet Satelliting Plt Morphology Comment RBC Morphology Dimorphic RBCs Polychromasia Hypochromasia Poikilocytosis Anisocytosis Microcytosis Macrocytosis Spherocytes Pappenheimer Bodies Sickle Cells Target Cells Tear Drop Cells Ovalocytes Helmet Cells Zavala-[place] Bodies [place] Rings Kisha Cells Bite Cells Crenated Cell Elliptocytes Acanthocytes (Spur) Rouleaux Hemoglobin C Crystals Schistocytes Malaria parasites Gonzalo Bodies Hem Pathologist Commnt Sodium 137 Potassium 4.4 Chloride 99.7 Carbon Dioxide 23 Anion Gap 19 BUN 18 Creatinine 1.3 Estimated GFR > 60 BUN/Creatinine Ratio 14 Glucose 150 H Calcium 9.2 Total Bilirubin AST ALT Alkaline Phosphatase Total Protein Albumin Albumin/Globulin Ratio Lipase 20 Urine Color Urine Turbidity Urine pH Ur Specific [place] Urine Protein Urine Glucose (UA) Urine Ketones Urine Blood Urine Nitrite Urine Bilirubin Urine Urobilinogen Ur Leukocyte Esterase Urine WBC (Auto) Urine RBC (Auto) U Epithel Cells (Auto) Assessment and Plan Pt states he has a 4 d hx of intermittent epigastric pain, knife-like. Severe on 09/03, with mild "griping" discomfort ever since that comes and goes. No exacerbants. Denies change with po intake. Pt has hx of colon cancer, and is s/p colonoscopy 6 months ago in [facility]. Abd - soft, NT, with large reducible umbilical hernia and well-healed vertical midline incision. DDx - PUD vs biliary vs adhesions - will do EGD tomorrow as well.
--- NOTE | 2018-09-07 16:04 | Event Note ---
Date: 09/07/18 Pt seen and examined 87 y/o male s/p AAA repair/ endograft in 07/2018 admitted with reports of epigastric/ periumbilical pain x 1 week. 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 transfer him to floor, start clear liquid, iv fluid Consult GI for possible PUD, start PPI
[2018-09-08] MEDS ORDERED: PERCOCET 5/325 PO PRN (01:06)
[2018-09-08 02:48] LABS: INR 1.13 (0.87-1.13)
[2018-09-08 05:24] LABS: Hematocrit 29.1 % (35.5-45.6); Hemoglobin 9.3 gm/dl (11.8-15.2); Mean Corpuscular HGB Conc 32 % (32-34); Mean Corpuscular Hemoglobin 26 pg (28-32); Mean Corpuscular Volume 83 fl (84-94); Platelet Count 318 K/mm3 (140-440); Red Blood Count 3.52 M/mm3 (3.65-5.03); Red Cell Distribution Width 18.3 % (13.2-15.2)
[2018-09-08 05:45] LABS: Calcium 8.9 mg/dL (8.4-10.2)
[2018-09-08 06:26] LABS: Anisocytosis 1+; Band Neutrophils # (Manual) 0.2 K/mm3; Platelet Estimate Consistent w Auto; Total Cells Counted 100
--- NOTE | 2018-09-08 08:29 | Ultrasound Report ---
ULTRASOUND ABDOMEN LIMITED: TECHNIQUE: Transabdominal ultrasound with color Doppler interrogation. HISTORY: Abdominal pain. COMPARISON: CT abdomen pelvis with contrast. FINDINGS: LIVER: Within normal limits. BILIARY SYSTEM: A small amount of sludge is suspected in the gallbladder. The gallbladder is partially contracted. No shadowing gallstones, wall thickening or biliary dilatation is appreciated. The CBD measures 3 mm. PANCREAS: Obscured. RIGHT KIDNEY: 10.5 cm. The right kidney is slightly echogenic consistent with nonspecific renal parenchymal disease. There are 3 or 4 simple cysts in the left kidney with the largest measuring 3.5 cm near the inferior pole. PROXIMAL AORTA: Obscured. ASCITES: None. The technologist has also imaged umbilical hernia containing a small amount of fluid and 1 or 2 small bowel loops. IMPRESSION: Small amount of sludge in the gallbladder. Echogenic right kidney suggesting nonspecific renal parenchymal disease. Right renal cysts. Umbilical hernia.
[2018-09-08] MEDS: COREG PO SCH (10:42)
[2018-09-08] MEDS: COZAAR PO SCH (10:42)
[2018-09-08] MEDS: PROTONIX IV SCH (10:42)
[2018-09-08] MEDS: NORVASC PO SCH (10:42)
[2018-09-08] MEDS ORDERED: AFLURIA QUAD 2018-2019 SYRINGE IM ONE (12:00)
[2018-09-08] MEDS ORDERED: NACL 0.9% 1000 ML 1,000 ML IV SCH (14:00)
--- NOTE | 2018-09-08 14:18 | Anesthesia Consultation ---
<HEIDI PAREDES - Last Filed: 09/08/18 14:10> Anesthesia Consult and Med Hx Date of service: 09/08/18 - Airway Anesthetic Teeth Evaluation: Poor ROM Head & Neck: Adequate Mental/Hyoid Distance: Adequate Mallampati Class: Class II Intubation Access Assessment: Probably Good - Pulmonary Exam CTA: Yes - Cardiac Exam Anesthetic Concerns: irregular - Pre-Operative Health Status ASA Pre-Surgery Classification: ASA3 Proposed Anesthetic Plan: MAC - Pre-Anesthesia Comment Pre-Anesthesia Comments: AAA repair 07/[address] [place]. - Pulmonary Hx Smoking: Yes (former) - Cardiovascular System Hx Hypertension: Yes - Gastrointestinal Hx Gastroesophageal Reflux Disease: Yes - Endocrine Hx Renal Disease: Yes Hx Non-Insulin Dependent Diabetes: Yes (borderline, no meds) - Hematic Hx Anemia: Yes - Other Systems Hx Cancer: Yes (Colon, resection 2006 ) Hx Obesity: Yes <ASHLEY ARREGUIN - Last Filed: 09/08/18 16:22> Anesthesia Consult and Med Hx - Additional Comments Anesthesia Medical History Comments: Irregular heart rhythm noted on monitor prior to procedure, likely a-fib. Rate controlled hemodynamically stable. Chart review reveals similar finding on telemetry [facility] inpatient as well as 5 beat run of v-tach noted overnight. Patient denies hx of a-fib. Spoke with hospitalist to inform him of pre/intra procedure arrhythmia.
--- NOTE | 2018-09-08 14:23 | Anesthesia Day of Surgery ---
Anesthesia Day of Surgery - Day of Surgery Patient Examined: Yes Patient H&P Reviewed: Yes Patient is NPO: Yes
[2018-09-08] MEDS ORDERED: DIPRIVAN 10 MG/ML IV ONE (14:40)
--- NOTE | 2018-09-08 15:02 | Post Operative Note ---
Pre-op diagnosis: Epigastric pain Post-op diagnosis: other (Normal exam) Findings: 1. Normal EGD Procedure: EGD Anesthesia: MAC Surgeon: OCTAVIO BUENO Estimated blood loss: none Pathology: none Condition: stable Disposition: floor (Adv diet, and discharge to home if tolerated, with outpatient f/u.)
--- NOTE | 2018-09-08 17:34 | Progress Note ---
Assessment and Plan Assessment and plan: 87 y/o male s/p AAA repair/ endograft in 07/2018 admitted with reports of epigastric/ periumbilical pain x 1 week. 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 GI consulted and did EGD and was normal Recommended to advance his diet, he was cleared by GI for discharge But the patient developed A. fib while he was in the recovery room - Cardiology consulted, EKG ordered - Rate Controlled - Remote telemetry Hypertension - Continue current medication regimen Disposition - Continue inpatient care - Possible discharge after cardiology evaluation History Interval history: Patient was seen and evaluated this morning, patient's complaining epigastric pain. Patient had EGD this morning and after EGD patient developed A. fib while he was in the recovery room. Hospitalist Physical - Physical exam Narrative exam: Not in cardiopulmonary distress. The patient is obese. Vital signs as documented. Head exam is unremarkable. No scleral icterus . Neck is without jugular venous distension, thyromegaly, or carotid bruits. Lungs are clear to auscultation. Cardiac exam reveals regular rate and Rhythm. First and second heart sounds normal. No murmurs, rubs or gallops. Abdominal exam reveals normal bowel sounds, no masses, no organomegaly and no aortic enlargement. Extremities are nonedematous and both femoral and pedal pulses are normal. ONLINE EDUCATION MANAGER: Alert and oriented 3. No focal weakness. - Constitutional Vitals: Temp Pulse Resp BP Pulse Ox 97.5 F L 92 H 17 158/78 92 09/08/18 15:00 09/08/18 15:30 09/08/18 15:30 09/08/18 15:30 09/08/18 15:30 General appearance: Present: no acute distress Results - Labs CBC & Chem 7: 09/08/18 04:59 09/08/18 04:59 Labs: Laboratory Last Values WBC 9.3 K/mm3 (4.5-11.0) 09/08/18 04:59 RBC 3.52 M/mm3 (3.65-5.03) L 09/08/18 04:59 Hgb 9.3 gm/dl (11.8-15.2) L 09/08/18 04:59 Hct 29.1 % (35.5-45.6) L 09/08/18 04:59 MCV 83 fl (84-94) L 09/08/18 04:59 MCH 26 pg (28-32) L 09/08/18 04:59 MCHC 32 % (32-34) 09/08/18 04:59 RDW 18.3 % (13.2-15.2) H 09/08/18 04:59 Plt Count 318 K/mm3 (140-440) 09/08/18 04:59 Lymph % (Auto) Clinical Laboratory Technologist 09/06/18 21:03 [place] % (Auto) Clinical Laboratory Technologist 09/06/18 21:03 Eos % (Auto) Clinical Laboratory Technologist 09/08/18 04:59 Baso % (Auto) Clinical Laboratory Technologist 09/06/18 21:03 Lymph # Clinical Laboratory Technologist 09/06/18 21:03 [place] # Clinical Laboratory Technologist 09/06/18 21:03 Eos # Clinical Laboratory Technologist 09/06/18 21:03 Baso # Clinical Laboratory Technologist 09/06/18 21:03 Add Manual Diff Complete 09/08/18 04:59 Total Counted 100 09/08/18 04:59 Seg Neutrophils % Clinical Laboratory Technologist 09/06/18 21:03 Seg Neuts % (Manual) 67.0 % (40.0-70.0) 09/08/18 04:59 Band Neutrophils % 2.0 % 09/08/18 04:59 Lymphocytes % (Manual) 11.0 % (13.4-35.0) L 09/08/18 04:59 Reactive Lymphs % (Man) 0 % 09/08/18 04:59 Monocytes % (Manual) 6.0 % (0.0-7.3) 09/08/18 04:59 Eosinophils % (Manual) 12.0 % (0.0-4.3) H 09/08/18 04:59 Basophils % (Manual) 2.0 % (0.0-1.8) H 09/08/18 04:59 Metamyelocytes % 0 % 09/08/18 04:59 Myelocytes % 0 % 09/08/18 04:59 Promyelocytes % 0 % 09/08/18 04:59 Blast Cells % 0 % 09/08/18 04:59 Nucleated RBC % Not Reportable 09/08/18 04:59 Seg Neutrophils # Clinical Laboratory Technologist 09/06/18 21:03 Seg Neutrophils # Man 6.2 K/mm3 (1.8-7.7) 09/08/18 04:59 Band Neutrophils # 0.2 K/mm3 09/08/18 04:59 Lymphocytes # (Manual) 1.0 K/mm3 (1.2-5.4) L 09/08/18 04:59 Abs React Lymphs (Man) 0.0 K/mm3 09/08/18 04:59 Monocytes # (Manual) 0.6 K/mm3 (0.0-0.8) 09/08/18 04:59 Eosinophils # (Manual) 1.1 K/mm3 (0.0-0.4) H 09/08/18 04:59 Basophils # (Manual) 0.2 K/mm3 (0.0-0.1) H 09/08/18 04:59 Metamyelocytes # 0.0 K/mm3 09/08/18 04:59 Myelocytes # 0.0 K/mm3 09/08/18 04:59 Promyelocytes # 0.0 K/mm3 09/08/18 04:59 Blast Cells # 0.0 K/mm3 09/08/18 04:59 WBC Morphology Not Reportable 09/08/18 04:59 Hypersegmented Neuts Not Reportable 09/08/18 04:59 Hyposegmented Neuts Not Reportable 09/08/18 04:59 Hypogranular Neuts Not Reportable 09/08/18 04:59 Smudge Cells Not Reportable 09/08/18 04:59 Toxic Granulation Not Reportable 09/08/18 04:59 Toxic Vacuolation Not Reportable 09/08/18 04:59 Dohle Bodies Not Reportable 09/08/18 04:59 Pelger-Huet Anomaly Not Reportable 09/08/18 04:59 Rylie Rods Not Reportable 09/08/18 04:59 Platelet Estimate Consistent w auto 09/08/18 04:59 Clumped Platelets Not Reportable 09/08/18 04:59 Plt Clumps, EDTA Not Reportable 09/08/18 04:59 Large Platelets Not Reportable 09/08/18 04:59 Giant Platelets Not Reportable 09/08/18 04:59 Platelet Satelliting Not Reportable 09/08/18 04:59 Plt Morphology Comment Not Reportable 09/08/18 04:59 RBC Morphology Not Reportable 09/08/18 04:59 Dimorphic RBCs Not Reportable 09/08/18 04:59 Polychromasia Not Reportable 09/08/18 04:59 Hypochromasia Not Reportable 09/08/18 04:59 Poikilocytosis Not Reportable 09/08/18 04:59 Anisocytosis 1+ 09/08/18 04:59 Microcytosis Not Reportable 09/08/18 04:59 Macrocytosis Not Reportable 09/08/18 04:59 Spherocytes Not Reportable 09/08/18 04:59 Pappenheimer Bodies Not Reportable 09/08/18 04:59 Sickle Cells Not Reportable 09/08/18 04:59 Target Cells Not Reportable 09/08/18 04:59 Tear Drop Cells Not Reportable 09/08/18 04:59 Ovalocytes Not Reportable 09/08/18 04:59 Helmet Cells Not Reportable 09/08/18 04:59 [place] Bodies Not Reportable 09/08/18 04:59 [place] Rings Not Reportable 09/08/18 04:59 Kisha Cells Not Reportable 09/08/18 04:59 Bite Cells Not Reportable 09/08/18 04:59 Crenated Cell Not Reportable 09/08/18 04:59 Elliptocytes Not Reportable 09/08/18 04:59 Acanthocytes (Spur) Not Reportable 09/08/18 04:59 Rouleaux Not Reportable 09/08/18 04:59 Hemoglobin C Crystals Not Reportable 09/08/18 04:59 Schistocytes Not Reportable 09/08/18 04:59 Malaria parasites Not Reportable 09/08/18 04:59 [place]alo Bodies Not Reportable 09/08/18 04:59 Hem Pathologist Commnt No 09/08/18 04:59 PT 15.0 Sec. (12.2-14.9) H 09/08/18 02:19 INR 1.13 (0.87-1.13) 09/08/18 02:19 Sodium 137 mmol/L (137-145) 09/08/18 04:59 Potassium 4.3 mmol/L (3.6-5.0) 09/08/18 04:59 Chloride 100.4 mmol/L (98-107) 09/08/18 04:59 Carbon Dioxide 27 mmol/L (22-30) 09/08/18 04:59 Anion Gap 14 mmol/L 09/08/18 04:59 BUN 16 mg/dL (9-20) 09/08/18 04:59 Creatinine 1.4 mg/dL (0.8-1.5) 09/08/18 04:59 Estimated GFR 58 ml/min 09/08/18 04:59 BUN/Creatinine Ratio 11 % 09/08/18 04:59 Glucose 121 mg/dL (75-100) H 09/08/18 04:59 Calcium 8.9 mg/dL (8.4-10.2) 09/08/18 04:59 Total Bilirubin 0.20 mg/dL (0.1-1.2) 09/06/18 21:03 AST 25 units/L (5-40) 09/06/18 21:03 ALT 15 units/L (7-56) 09/06/18 21:03 Alkaline Phosphatase 107 units/L (35-129) 09/06/18 21:03 Total Protein 9.3 g/dL (6.3-8.2) H 09/06/18 21:03 Albumin 3.8 g/dL (3.9-5) L 09/06/18 21:03 Albumin/Globulin Ratio 0.7 % 09/06/18 21:03 Lipase 20 units/L (13-60) 09/07/18 00:02 Urine Color Straw (Yellow) 09/06/18 20:59 Urine Turbidity Clear (Clear) 09/06/18 20:59 Urine pH 5.0 (5.0-7.0) 09/06/18 20:59 Ur Specific [place] 1.006 (1.003-1.030) 09/06/18 20:59 Urine Protein <15 mg/dl mg/dL (Negative) 09/06/18 20:59 Urine Glucose (UA) Neg mg/dL (Negative) 09/06/18 20:59 Urine Ketones Neg mg/dL (Negative) 09/06/18 20:59 Urine Blood Sm (Negative) 09/06/18 20:59 Urine Nitrite Neg (Negative) 09/06/18 20:59 Urine Bilirubin Neg (Negative) 09/06/18 20:59 Urine Urobilinogen < 2.0 mg/dL (<2.0) 09/06/18 20:59 Ur Leukocyte Esterase Neg (Negative) 09/06/18 20:59 Urine WBC (Auto) 1.0 /HPF (0.0-6.0) 09/06/18 20:59 Urine RBC (Auto) 1.0 /HPF (0.0-6.0) 09/06/18 20:59 U Epithel Cells (Auto) 1.0 /HPF (0-13.0) 09/06/18 20:59
[2018-09-08] MEDS: ALPHAGAN P 0.15% OU SCH ×2 (18:18→22:10)
[2018-09-08] MEDS: PROTONIX PO SCH (18:18)
[2018-09-08] MEDS: SODIUM CHLORIDE FLUSH SYRINGE 10 ML IV SCH ×2 (18:23→22:11)
--- NOTE | 2018-09-08 18:35 | Operative Report ---
PROCEDURE: Upper endoscopy. PREOPERATIVE DIAGNOSIS: Epigastric pain. POSTOPERATIVE DIAGNOSIS: Normal upper endoscopy. SEDATION: MAC by Anesthesia. HISTORY: The patient is an 87-year-old man who presented with a bout of severe epigastric pain last week that resolved spontaneously with mild achy discomfort ongoing. He has had symptoms with epigastric discomfort intermittently in the past. Procedure, indications, risks, and benefits were explained and consent was obtained. The patient was placed in left lateral decubitus position and sedated. [employer] video upper endoscope was passed through the mouth and oropharynx into the descending duodenum and then gradually withdrawn with close inspection of the mucosa. FINDINGS: 1. Normal esophagus with sharp Z-line located at 40 cm from the gums. 2. Normal appearing gastric antrum, fundus, body, and cardia. 3. Normal appearing duodenal bulb and duodenum. The patient tolerated the procedure well without immediate complications. IMPRESSION: Normal upper endoscopy. PLAN: 1. Advance diet and discharge if tolerated. 2. Gallbladder ultrasound was done and notes a possible small amount of biliary sludge. 3. The patient should follow up as an outpatient with GI in several weeks and if symptoms persist, further evaluation for adhesions should be considered. Also, further evaluation of the biliary sludge should be considered based on symptoms. JOB# [id number] HRC/ROBERT
[2018-09-08] MEDS ORDERED: LATANOPROST 0.005% OU SCH (22:00)
[2018-09-09 08:07] VITALS: BP 116/75
[2018-09-09] MEDS: ALPHAGAN P 0.15% OU SCH (09:53)
[2018-09-09] MEDS: NORVASC PO SCH (09:54)
[2018-09-09] MEDS: COREG PO SCH (09:54)
[2018-09-09] MEDS: COZAAR PO SCH (09:54)
[2018-09-09] MEDS: SODIUM CHLORIDE FLUSH SYRINGE 10 ML IV SCH (09:56)
[2018-09-09] MEDS: PROTONIX PO SCH (09:58)
--- NOTE | 2018-09-09 10:16 | Consultation ---
History of Present Illness Consult date: 09/09/18 Consult reason: atrial fibrillation History of present illness: This is an 87 year old man with a recent AAA repair who presented to this hospital 09/06 with reports of abdominal pain. Abdominal CT revealed a small type II endoleak which has been reviewed by vascular surgery with recommendations of conservative management. While on telemetry monitoring, patient was reported a to be in atrial fibrillation thus this cardiac consultation. Review of telemetry strips shows sinus rhythm with occasional PACs. A 12 lead EKG is sinus rhythm. There is no evidence of a. fib. Patient denies a prior cardiac history. He has not had any chest pain, shortness of breath or palpitations. Past History Past Medical History: hypertension, other (CKD 3) Past Surgical History: abd. aortic aneurysm repair, bowel surgery (colon resection for colon Ca), Other (umbilical hernia) Social history: lives with family Family history: no significant family history Medications and Allergies Allergies Allergy/AdvReac Type Severity Reaction Status Date / Time No Known Allergies Allergy Verified 07/17/18 07:04 Home Medications Medication Instructions Recorded Confirmed Last Taken Type Carvedilol [Coreg] 12.5 mg PO DAILY 06/18/18 09/07/18 07/26/18 History 12.5mg Clonidine HCl [Kapvay] 0.1 mg PO DAILY 06/18/18 09/07/18 07/26/18 History 0.1mg Furosemide [Lasix] 40 mg PO DAILY 06/18/18 09/07/18 07/26/18 History 40mg Losartan Potassium [Cozaar] 25 mg PO DAILY 06/18/18 09/07/18 07/26/18 History 25mg amLODIPine [Norvasc] 5 mg PO DAILY 06/18/18 09/07/18 07/26/18 History 5mg Acetaminophen/Codeine [Tylenol 1 tab PO Q6H PRN #30 tab 07/17/18 09/07/18 Rx /Codeine # 3 tab] 1 tab Pantoprazole [Protonix TAB] 40 mg PO QDAY PRN 07/17/18 09/07/18 07/26/18 History 40mg Rosuvastatin Calcium [Crestor] 40 mg PO DAILY 07/17/18 09/07/18 07/26/18 History 1 tab Brimonidine Tartrate [Brimonidine 1 drop INTRAOCULA BID 07/27/18 09/07/18 History Tartrate 0.2%] 1 drop Latanoprost 0.005% 1 drop INTRAOCULA HS 07/27/18 09/07/18 07/26/18 History 1 drop oxyCODONE /ACETAMINOPHEN [Percocet 1 tab PO Q6HR PRN #20 tablet 07/29/18 Unknown Rx 5/325] Active Meds: Active Medications Acetaminophen (Tylenol) 650 mg PO Q4H PRN PRN Reason: Pain MILD(1-3)/Fever >100.5/HERRERA Amlodipine Besylate (Norvasc) 5 mg PO DAILY [facility] Last Admin: 09/09/18 09:54 Dose: 5 mg Atorvastatin Calcium (Lipitor) 40 mg PO QHS [facility] Last Admin: 09/08/18 22:10 Dose: 40 mg Brimonidine Tartrate (Alphagan P 0.15%) 1 drops OU BID [facility] Last Admin: 09/09/18 09:53 Dose: 1 drops Carvedilol (Coreg) 12.5 mg PO DAILY [facility] Last Admin: 09/09/18 09:54 Dose: 12.5 mg Clonidine HCl (Catapres-Tts Patch) 0.3 mg TD Mo [facility] Last Admin: 09/07/18 13:34 Dose: 0.3 mg Hydralazine HCl (Apresoline) 10 mg IV Q30MIN PRN PRN Reason: Hypertension Dextrose/Sodium Chloride (D5ns) 1,000 mls @ 75 mls/hr IV DIRECT KANG Sodium Chloride (Nacl 0.9% 1000 Ml) 1,000 mls @ 50 mls/hr IV DIRECT [facility] Last Admin: 09/08/18 13:50 Dose: 50 mls/hr Latanoprost (Latanoprost 0.005%) 1 drops OU HS [facility] Last Admin: 09/08/18 22:56 Dose: 1 drops Losartan Potassium (Cozaar) 25 mg PO DAILY [facility] Last Admin: 09/09/18 09:54 Dose: 25 mg Morphine Sulfate (Morphine) 1 mg IV Q4H PRN PRN Reason: Pain, Moderate (4-6) Ondansetron HCl (Zofran) 4 mg IV Q4H PRN PRN Reason: Nausea And Vomiting Oxycodone/Acetaminophen (Percocet 5/325) 1 tab PO Q6H PRN PRN Reason: Pain Pantoprazole Sodium (Protonix) 40 mg PO QDAY [facility] Last Admin: 09/09/18 09:58 Dose: 40 mg Sodium Chloride (Sodium Chloride Flush Syringe 10 Ml) 10 ml IV BID [facility] Last Admin: 09/09/18 09:56 Dose: 10 ml Sodium Chloride (Sodium Chloride Flush Syringe 10 Ml) 10 ml IV PRN PRN PRN Reason: LINE FLUSH Physical Examination Vital Signs Temp Pulse Resp BP Pulse Ox 99.2 F 89 18 175/101 98 09/06/18 20:08 09/06/18 20:08 09/06/18 20:08 09/06/18 20:08 09/06/18 20:08 General appearance: no acute distress HEENT: Positive: PERRL Cardiac: Positive: Reg Rate and Rhythm Lungs: Positive: Decreased Breath Sounds Neuro: Positive: Grossly Intact Results 09/08/18 04:59 09/08/18 04:59 Assessment and Plan Abdominal pain normal EGD Abdominal CT revealed a small type II endoleak which has been reviewed by vascular surgery with recommendations of conservative management. Hypertension Review of telemetry strips shows sinus rhythm with occasional PACs. A 12 lead EKG is sinus rhythm. There is no evidence of a. fib. Conservative cardiac management.
--- NOTE | 2018-09-09 11:40 | Discharge Summary ---
Providers - Providers Date of Admission: 09/07/18 05:20 Attending physician: LILI OLIVER MD 09/07/18 04:52 Consult to Physician [CONS] Urgent Comment: spoke to tia/ warren Consulting Provider: CRISTHIAN MAYFIELD Physician Instructions: Reason For Exam: abd pain, aaa 09/07/18 10:43 Consult to Physician [CONS] Routine Comment: called office spoke to andre @ 1509/warren Consulting Provider: MINERVA TEMPLE Physician Instructions: Reason For Exam: epigastric pain 09/08/18 15:00 Consult to Physician [CONS] Routine Comment: called answ. serv./warren Consulting Provider: ENDY HANKINS Physician Instructions: Reason For Exam: new onset a.fib, SOB Primary care physician: RUG FRAME MOUNTER Hospitalization Condition: Stable Disposition: DC-30 STILL A PATIENT Time spent for discharge: 32 minutes - Discharge Diagnoses (1) History of AAA (abdominal aortic aneurysm) repair Status: Acute (2) Abdominal pain Status: Acute Qualifiers: Abdominal location: epigastric Qualified Code(s): R10.13 - Epigastric pain Core Measure Documentation - Palliative Care Palliative Care/ Comfort Measures: Not Applicable - Core Measures Any of the following diagnoses?: none Exam - Physical Exam Narrative exam: Not in cardiopulmonary distress. The patient is obese. Vital signs as documented. Head exam is unremarkable. No scleral icterus . Neck is without jugular venous distension, thyromegaly, or carotid bruits. Lungs are clear to auscultation. Cardiac exam reveals regular rate and Rhythm. First and second heart sounds normal. No murmurs, rubs or gallops. Abdominal exam reveals normal bowel sounds, no masses, no organomegaly and no aortic enlargement. Extremities are nonedematous and both femoral and pedal pulses are normal. CRAPS DEALER: Alert and oriented 3. No focal weakness. - Constitutional Vitals: Temp Pulse Resp BP Pulse Ox 98.2 F 83 18 116/75 98 09/09/18 07:44 09/09/18 07:44 09/09/18 07:44 09/09/18 07:44 09/09/18 09:01 Plan Activity: no restrictions Weight Bearing Status: Full Weight Bearing Diet: low salt Additional Instructions: F/U at [facility] in 1-2 days Follow up with: MANJU BRITTON MD [Primary Care Provider] - 3-5 Days
--- NOTE | 2018-09-09 12:09 | Query- Abdominal Pain ---
Hiram Weinstein____Grover Date: 09/09/18 Resourcing Advisor/CDS:__[email or web address] Phone#: [phone] Exercise your independent professional judgment when responding to this query. Questions asked do not imply that a particular answer is desired or expected. We greatly appreciate your clarification on this issue. Clinical Documentation States: 87 y/o male s/p AAA repair/ endograft in 07/2018 admitted with reports of epigastric/ periumbilical pain x 1 week Discharge Diagnoses (1) History of AAA (abdominal aortic aneurysm) repair Status: Acute (2) Abdominal pain Clinical Findings Show: CTA obtained revealed a type II endoleak EGD and was normal Please specify the etiology of Abdominal Pain: [ ]Appendicitis, Acute [ ] Intestinal Obstruction [ ]Diverticulitis, Acute [ ] Uremia [ ]Pancreatitis, Acute [ ] Thoracic Aortic Aneurysm [ ]Peritonitis [ ] Urinary Tract Infection [ ]Ulcerative Colitis [ ] Pelvic Inflammatory Disease [ ]Cholecystitis [ ] Cystitis [ ]Cholangitis [ ] Pyelonephritis [ ]Viral Gastroenteritis [ ] Renal Stones [ ]Gastroenteritis, Bacterial [ ] Retroperitoneal Infection [ ]Gastritis [ ] Shingles [ ]Peritoneal Irritation [ ] Mesenteric Artery Occlusion [ ]Peritoneal Inflammation [ ] Trauma(please specify): _ [ ]Peritoneal Infection [ ] Irritable Bowel Syndrome [ ]Constipation [ ] Hernia [ ]GERD [ ] Cholelithiasis [ ]Peptic Ulcer [ ] Vascular Insufficiency of Intestine [ ]Diabetic Ketoacidosis [ ]Cancer [ ]Other: [x ]Unable to determine [ ]Comment/Explanation: Present on Admission: [ x] Yes (Y) [ ] Clinically undeterminable (W) [ ] No(N) Please also document response in your Progress Notes and/or Discharge Summary and indicate if the condition was present on admission. MTDD
== END 2018-09-09 13:25 | disposition home or self-care (01) | DRG 392 ==
LOC: ED 19:47 → CC1 09-07 05:20 → 2B-ACE 09-07 14:43
PROVIDERS: ADMIT Internal Medicine; ATTEND Internal Medicine
PROC: 0DJ08ZZ Inspection of Upper Intestinal Tract, Via Natural or Artificial Opening Endoscopic (ICD-10-PCS; principal; 2018-09-08)
DX: R10.13 Epigastric pain (principal); N18.4 Chronic kidney disease, stage 4 (severe); I71.4 Abdominal aortic aneurysm, without rupture; I12.9 Hypertensive chronic kidney disease with stage 1 through stage 4 chronic kidney disease, or unspecified chronic kidney disease; E11.22 Type 2 diabetes mellitus with diabetic chronic kidney disease; I48.91 Unspecified atrial fibrillation; K21.9 Gastro-esophageal reflux disease without esophagitis; Z85.038 Personal history of other malignant neoplasm of large intestine; Z87.891 Personal history of nicotine dependence; Z90.49 Acquired absence of other specified parts of digestive tract; Z82.49 Family history of ischemic heart disease and other diseases of the circulatory system; Z79.899 Other long term (current) drug therapy; Z79.84 Long term (current) use of oral hypoglycemic drugs
CPT/HCPCS: 36415; 74177; 76705; 80048; 80053; 81001; 83690; 85007; 85025; 85610; 90686; 93005; 93010; 96374; 96375; 99291; A9270-GY; C9113; J0360; J2270; J2405; J2704; J7030; Q9967

== ENCOUNTER 2018-12-06 08:24 | Inpatient (IN) | payer MEDICARE ==
[2018-12-06 09:16] LABS: Hemoglobin 8.6 gm/dl (11.8-15.2); Red Blood Count 3.23 M/mm3 (3.65-5.03)
[2018-12-06 09:17] LABS: Basophils % (Auto) 0.6 % (0.0-1.8); Eosinophils # (Auto) 0.6 K/mm3 (0.0-0.4); Eosinophils % (Auto) 7.9 % (0.0-4.3); Hematocrit 28.5 % (35.5-45.6); Lymphocytes # (Auto) 1.5 K/mm3 (1.2-5.4); Lymphocytes % (Auto) 19.1 % (13.4-35.0); Mean Corpuscular HGB Conc 30 % (32-34); Mean Corpuscular Volume 88 fl (84-94); Monocytes # (Auto) 0.8 K/mm3 (0.0-0.8); Monocytes % (Auto) 10.3 % (0.0-7.3); Platelet Count 266 K/mm3 (140-440)
[2018-12-06 09:28] LABS: Calcium 8.9 mg/dL (8.4-10.2)
[2018-12-06] MEDS ORDERED: LASIX IV ONE (10:15)
--- NOTE | 2018-12-06 10:20 | Emergency Department Report ---
ED Shortness of Breath HPI - General Chief Complaint: Dyspnea/Respdistress Stated Complaint: KATHLEEN Time Seen by Provider: 12/06/18 10:09 Source: patient Mode of arrival: Ambulatory Limitations: No Limitations - History of Present Illness Initial Comments: Patient is a 87 years old male with a history of congestive heart failure, diabetes, hypertension. Patient had history of AAA status post repair in 2018. Patient presented to the ER complaining of shortness of breath for the last 2-3 days. Patient stated that shortness of breath is worse when he woke even for short distance. Patient is having significant orthopnea. He denied any chest pain, cough, fever or chills. MD Complaint: shortness of breath -: days(s) Severity: moderate Consistency: constant Improves With: oxygen Known History Of: congestive heart failure, diabetes - Related Data Home Medications Medication Instructions Recorded Confirmed Last Taken Carvedilol [Coreg] 12.5 mg PO DAILY 06/18/18 11/06/18 07/26/18 12.5mg Losartan Potassium [Cozaar] 25 mg PO DAILY 06/18/18 11/06/18 07/26/18 25mg amLODIPine [Norvasc] 5 mg PO DAILY 06/18/18 11/06/18 07/26/18 5mg Pantoprazole [Protonix TAB] 40 mg PO QDAY 07/17/18 11/06/18 07/26/18 40mg Latanoprost 0.005% 1 drop OU HS 07/27/18 11/06/18 07/26/18 1 drop Brimonidine 0.15% [Alphagan P 1 drops OU Q8H 11/06/18 11/06/18 Unknown 0.15%] cloNIDine [Catapres] 0.1 mg PO BID 11/06/18 11/06/18 Unknown Latanoprost 0.005% Eye Drop 1 drop OU HS 11/07/18 11/07/18 Unknown Previous Rx's Medication Instructions Recorded Last Taken Type oxyCODONE /ACETAMINOPHEN [Percocet 1 tab PO Q6HR PRN #20 tablet 07/29/18 Unknown Rx 5/325 mg] Furosemide [Lasix TAB] 40 mg PO DAILY #30 tablet 11/16/18 Unknown Rx Levothyroxine [Synthroid] 150 mcg PO DAILY@0600 #30 tablet 11/16/18 Unknown Rx Allergies Allergy/AdvReac Type Severity Reaction Status Date / Time No Known Allergies Allergy Verified 07/17/18 07:04 ED Review of Systems ROS: Stated complaint: KATHLEEN Other details as noted in HPI Comment: All other systems reviewed and negative Constitutional: denies: chills, fever Respiratory: orthopnea, shortness of breath, SOB with exertion, SOB at rest. denies: cough, wheezing Cardiovascular: denies: chest pain, palpitations, dyspnea on exertion Gastrointestinal: denies: abdominal pain, nausea, vomiting, diarrhea, constipation, hematemesis, melena, hematochezia Neurological: weakness (generalized). denies: headache, numbness ED Past Medical Hx - Past Medical History Hx Hypertension: Yes Hx CVA: No Hx Heart Attack/AMI: No Hx Congestive Heart Failure: No Hx Diabetes: Yes Hx Deep Vein Thrombosis: No Hx Pulmonary Embolism: No Hx GERD: No Hx Liver Disease: No Hx Renal Disease: Yes Hx Sickle Cell Disease: No Hx Arthritis: Yes Hx Headaches / Migraines: No Hx Seizures: No Hx Kidney Stones: No Hx Psychiatric Treatment: No Hx Asthma: No Hx COPD: No Hx Tuberculosis: No Hx Dementia: No Hx HIV: No - Surgical History Hx Coronary Stent: No Hx Open Heart Surgery: No Hx Pacemaker: No Hx Internal Defibrillator: No Hx Cholecystectomy: No Hx Appendectomy: No Hx Breast Surgery: No Additional Surgical History: abd - Social History Smoking Status: Never Smoker Substance Use Type: None - Medications Home Medications: Home Medications Medication Instructions Recorded Confirmed Last Taken Type Carvedilol [Coreg] 12.5 mg PO DAILY 06/18/18 11/06/18 07/26/18 History 12.5mg Losartan Potassium [Cozaar] 25 mg PO DAILY 06/18/18 11/06/18 07/26/18 History 25mg amLODIPine [Norvasc] 5 mg PO DAILY 06/18/18 11/06/18 07/26/18 History 5mg Pantoprazole [Protonix TAB] 40 mg PO QDAY 07/17/18 11/06/18 07/26/18 History 40mg Latanoprost 0.005% 1 drop OU HS 07/27/18 11/06/18 07/26/18 History 1 drop oxyCODONE /ACETAMINOPHEN [Percocet 1 tab PO Q6HR PRN #20 tablet 07/29/18 11/06/18 Unknown Rx 5/325 mg] Brimonidine 0.15% [Alphagan P 1 drops OU Q8H 11/06/18 11/06/18 Unknown History 0.15%] cloNIDine [Catapres] 0.1 mg PO BID 11/06/18 11/06/18 Unknown History Latanoprost 0.005% Eye Drop 1 drop OU HS 11/07/18 11/07/18 Unknown History Furosemide [Lasix TAB] 40 mg PO DAILY #30 tablet 11/16/18 Unknown Rx Levothyroxine [Synthroid] 150 mcg PO DAILY@0600 #30 tablet 11/16/18 Unknown Rx ED Physical Exam - General Limitations: No Limitations General appearance: alert, in distress (moderate respiratory distress) - Head Head exam: Present: atraumatic, normocephalic, normal inspection - Eye Eye exam: Present: normal appearance - ENT ENT exam: Present: normal exam, normal orophraynx, mucous membranes moist - Neck Neck exam: Present: normal inspection, full ROM. Absent: tenderness, meningismus, lymphadenopathy, thyromegaly - Respiratory Respiratory exam: Present: respiratory distress, rales, decreased breath sounds. Absent: rhonchi, stridor, accessory muscle use, prolonged expiratory - Cardiovascular Cardiovascular Exam: Present: regular rate, normal rhythm, normal heart sounds - GI/Abdominal GI/Abdominal exam: Present: soft, normal bowel sounds. Absent: distended, tenderness, guarding, rebound, rigid, organomegaly, mass, bruit, pulsatile mass, hernia - Extremities Exam Extremities exam: Present: normal inspection, full ROM, pedal edema. Absent: calf tenderness - Back Exam Back exam: Present: normal inspection, full ROM. Absent: tenderness, CVA tenderness (R), CVA tenderness (L), muscle spasm, paraspinal tenderness, vertebral tenderness - Neurological Exam Neurological exam: Present: alert, oriented X3, CN II-XII intact, normal gait, reflexes normal - Skin Skin exam: Present: warm, intact, normal color ED Course Vital Signs 12/06/18 12/06/18 08:45 10:09 Temperature 97.6 F 97.6 F Pulse Rate 90 90 Respiratory 16 18 Rate Blood Pressure 117/61 Blood Pressure 115/94 [Right] O2 Sat by Pulse 95 Oximetry ED Medical Decision Making - Lab Data Result diagrams: 12/06/18 08:58 12/06/18 08:58 - EKG Data -: EKG Interpreted by Me EKG shows normal: sinus rhythm Rate: normal - EKG Data Interpretation: no acute changes - Radiology Data Radiology results: image reviewed Chest x-ray showed a pulmonary congestion. - Medical Decision Making Mr. Ribera is a 87 years old male with a history of congestive heart failure, diabetes, hypertension. Patient had history of AAA status post repair in 2018. Patient presented to the ER complaining of shortness of breath for the last 2-3 days. Patient stated that shortness of breath is worse when he woke even for short distance. Patient is having significant orthopnea. He denied any chest pain, cough, fever or chills. EKG did not show any STEMI, chest x-ray show a pulmonary congestion consistent with decompensated congestive heart failure. I discussed the patient was Dr. Junior zamarripa, he agreed to admit the patient to medical service. Critical Care Time: Yes Critical care time in (mins) excluding proc time.: 30 Critical care attestation.: If time is entered above; I have spent that time in minutes in the direct care of this critically ill patient, excluding procedure time. ED Disposition Clinical Impression: Shortness of breath, CHF exacerbation Disposition: OP ADMIT IP TO THIS HOSP Is pt being admited?: Yes Condition: Stable Referrals: PRIMARY CARE, [Primary Care Provider] - 3-5 Days
--- NOTE | 2018-12-06 10:50 | XRay Report ---
FINAL REPORT EXAM: XR CHEST 1V AP HISTORY: Shortness of breath COMPARISON: Chest radiograph and CT of the chest performed on 11/15/2018 TECHNIQUE: Single frontal view of the chest FINDINGS: Stable cardiomegaly. Again seen is peripheral fibrotic change, right greater than left. There is improved aeration since t he previous study. No definite pleural effusion or pneumothorax. No acute bony or soft tissue abnormality. IMPRESSION: No acute cardiopulmonary disease. Stable cardiomegaly. Peripheral fibrotic changes, right greater than left.
[2018-12-06 10:52] LABS: INR 1.35 (0.87-1.13); Partial Thromboplastin Time 35.2 Sec. (24.2-36.6)
[2018-12-06] MEDS ORDERED: LASIX ONE ×3 (10:54→19:53)
[2018-12-06] MEDS ORDERED: BABY ASPIRIN PO ONE (11:21)
[2018-12-06] MEDS ORDERED: ASPIRIN ONE (11:27)
[2018-12-06 11:42] LABS: Chol/HDL Ratio 4.43 %
--- NOTE | 2018-12-06 13:49 | History and Physical Report ---
History of Present Illness Date of examination: 12/06/18 Date of admission: 12/06/18 10:25 Chief complaint: SOB History of present illness: Patient is a 87 yo man with a history of HTN, borderline DM, OA, Obesity, HAP right pneumonia with bacteremia, Systolic CHF with estimated EF 45-50%, Non- ischemic troponin elevation, Atrial Fib, Staph Hominis bacteremia, Right Pleural Effusion, colon cancer s/p removal 2006 in the [facility], CKD 3 (cr was 1.7 on 11/12/18), AAA s/p EVAR here in July 2018 and newly diagnosis hypothyroidism on 10/2018 hospitalization (just discharged on 11/17/2018) who presents to [facility] ED with severe progressively worse constant JC/SOB with minimal activity for the last 2-3 days without relieving factors associated with orthopnea, and worsening leg swelling. He was sent home with oxygen but he doesn't use it. He states the tank is empty. PMH: as hpi, AOCD, glaucoma PSH: colon cancer s/p resection 2006, AAA repair July 2018 SH: no tob/etoh or drug abuse FH: hypertension, DM ROS: Constitutional: denies: fever ENT: denies: throat or neck pain Respiratory: + cough, shortness of breath Cardiovascular: denies: chest pain Endocrine: denies unexplained weight loss or gain Gastrointestinal: denies: abdominal pain, nausea Genitourinary: denies: dysuria Rectal: denies no incontinence, no bleeding, no itching, no discharge Musculoskeletal: denies swelling, myaglia, muscle weakness Skin: denies: rash Neurological: denies: headache Hematological/Lymphatic: denies: easy bleeding or easy bruising Allergic/Immunologic: no urticaria, no allergic rhinitis, no anaphylaxis Psych: denies sadness or hopelessness, SI/HI Medications and Allergies Allergies Allergy/AdvReac Type Severity Reaction Status Date / Time No Known Allergies Allergy Verified 07/17/18 07:04 Home Medications Medication Instructions Recorded Confirmed Last Taken Type Carvedilol [Coreg] 12.5 mg PO DAILY 06/18/18 11/06/18 07/26/18 History 12.5mg Losartan Potassium [Cozaar] 25 mg PO DAILY 06/18/18 11/06/18 07/26/18 History 25mg amLODIPine [Norvasc] 5 mg PO DAILY 06/18/18 11/06/1818 History 5mg Pantoprazole [Protonix TAB] 40 mg PO QDAY 07/17/18 11/06/18 07/26/18 History 40mg Latanoprost 0.005% 1 drop OU HS 07/27/18 11/06/18 07/26/18 History 1 drop oxyCODONE /ACETAMINOPHEN [Percocet 1 tab PO Q6HR PRN #20 tablet 07/29/18 11/06/18 Unknown Rx 5/325 mg] Brimonidine 0.15% [Alphagan P 1 drops OU Q8H 11/06/18 11/06/18 Unknown History 0.15%] cloNIDine [Catapres] 0.1 mg PO BID 11/06/18 11/06/18 Unknown History Latanoprost 0.005% Eye Drop 1 drop OU HS 11/07/18 11/07/18 Unknown History Furosemide [Lasix TAB] 40 mg PO DAILY #30 tablet 11/16/18 Unknown Rx Levothyroxine [Synthroid] 150 mcg PO DAILY@0600 #30 tablet 11/16/18 Unknown Rx Exam - Physical Exam Narrative exam: Gen: WDWN, NAD, Awake, Alert, Orientated x 3 HEENT: NCAT, EOMI, PERRL, OP Clear Neck: supple, no adenopathy, no thyromegaly,+ JVD CVS/Heart: RRR, normal S1S2, pulses present bilaterally Chest/Lungs: tight bs bilateral, Symmetrical chest expansion, reduced air entry bilaterally GI/Abdomen: soft, NTND, good bowel sounds, no guarding or rebound /Bladder: no suprapubic tenderness, no CVA or paraspinal tenderness Extermity/Skin: ble 2+ pitting edema, no obvious rash MSK: FROM x 4 Neuro: CN 2-12 grossly intact, no new focal deficits Psych: calm - Constitutional Vitals: Temp Pulse Resp BP Pulse Ox 97.6 F 91 H 16 146/92 96 12/06/18 10:09 12/06/18 13:02 12/06/18 13:02 12/06/18 13:02 12/06/18 13:02 Results - Labs CBC & Chem 7: 12/06/18 08:58 12/06/18 08:58 Labs: Abnormal lab results 12/06/18 12/06/1812/06/19 Range/Units 08:58 08:58 10:18 RBC 3.23 L (3.65-5.03) M/mm3 Hgb 8.6 L (11.8-15.2) gm/dl Hct 28.5 L (35.5-45.6) % MCH 27 L (28-32) pg MCHC 30 L (32-34) % RDW 26.0 H (13.2-15.2) % [place] % (Auto) 10.3 H (0.0-7.3) % Eos % (Auto) 7.9 H (0.0-4.3) % Eos # 0.6 H (0.0-0.4) K/mm3 PT (12.2-14.9) Sec. INR (0.87-1.13) Sodium 136 L (137-145) mmol/L BUN 26 H (9-20) mg/dL Creatinine 2.0 H (0.8-1.5) mg/dL Glucose 142 H (75-100) mg/dL Troponin T 0.071 H (0.00-0.029) ng/mL NT-Pro-B Natriuret Pep 4927 H (0-900) pg/mL HDL Cholesterol 37 L (40-59) mg/dL 12/06/18 Range/Units 10:18 RBC (3.65-5.03) M/mm3 Hgb (11.8-15.2) gm/dl Hct (35.5-45.6) % MCH (28-32) pg MCHC (32-34) % RDW (13.2-15.2) % [place] % (Auto) (0.0-7.3) % Eos % (Auto) (0.0-4.3) % Eos # (0.0-0.4) K/mm3 PT 17.1 H (12.2-14.9) Sec. INR 1.35 H (0.87-1.13) Sodium (137-145) mmol/L BUN (9-20) mg/dL Creatinine (0.8-1.5) mg/dL Glucose (75-100) mg/dL Troponin T (0.00-0.029) ng/mL NT-Pro-B Natriuret Pep (0-900) pg/mL HDL Cholesterol (40-59) mg/dL Assessment and Plan Patient is a 87 yo man with a history of HTN, borderline DM, OA, Obesity, HAP right pneumonia with bacteremia, Systolic CHF with estimated EF 45-50%, Non- ischemic troponin elevation, Atrial Fib, Staph Hominis bacteremia, Right Pleural Effusion, colon cancer s/p removal 2006 in the [facility], CKD 3 (cr was 1.7 on 11/12/18), AAA s/p EVAR here in July 2018 and newly diagnosis hyp othyroidism on 10/2018 hospitalization (just discharged on 11/17/2018) who presents to [facility] ED with severe progressively worse constant JC/SOB with minimal activity for the last 2-3 days without relieving factors associated with orthopnea, and worsening leg swelling. He was sent home with oxygen but he doesn't use it. He states the tank is empty. * pCXR read as no acute findings, stable cardiomegaly, peripheral fibrotic changes R>L * Troponin T 0.071 and also 0.073 on * proBNP 4927 and it was 7891 on 11/06/2018 * Cr 2.0 now, was 1.7 on 11/12/18 -Acute on Chronic systolic heart failure: treat with iv lasix, consult Cardiology -Acute on chronic hypoxic respiratory failure, noncompliant with using O2: treat the heart failure -Acute on Chronic Renal failure stage 3, vasomotor nephropathy: treat the CHF, monitor closely, consult nephrology -Atrial fibrillation: continue coreg -Hypothyroidism: check TSH -Diabetes mellitus type 2 suspected; check a1c, ssi, ada diet -History of AAA repair: Vascular has re-evaluated last admission in October, because of the bacteremia, -recent Staph Hominis bacteremia, pt should have finished the 2 weeks treatment: recheck blood culture DVT prophylaxis reviewed, Eliquis held due to worsening renal function, use sq heparin Disposition: continue inpatient [facility] reconciliation: Eliquis not listed and the losartan held due to ARF Diet: ada/cardiac full code
[2018-12-06] MEDS ORDERED: PERCOCET 5/325 PO PRN (14:06)
[2018-12-06] MEDS ORDERED: D50W (25GM) Syringe IV PRN (14:14)
[2018-12-06] MEDS: COREG PO SCH (15:30)
[2018-12-06] MEDS: NORVASC PO SCH (15:31)
[2018-12-06] MEDS: HEPARIN SUB-Q SCH (15:32)
[2018-12-06] MEDS ORDERED: HEPARIN ONE (15:39)
[2018-12-06] MEDS ORDERED: COREG ONE (15:39)
[2018-12-06] MEDS: LASIX IV SCH ×2 (17:39→19:47)
[2018-12-06] MEDS ORDERED: HumaLOG SUB-Q ONE ×2 (19:36→19:40)
[2018-12-06] MEDS: HumaLOG SUB-Q SCH (19:46)
[2018-12-06] MEDS: DUONEB *Not for PRN Use IH SCH (20:59)
[2018-12-06] MEDS ORDERED: LATANOPROST 0.005% OU SCH (22:00)
[2018-12-06] MEDS ORDERED: EYE OU SCH (22:00)
[2018-12-06] MEDS: CATAPRES PO SCH (23:03)
[2018-12-06] MEDS: ALPHAGAN P 0.15% OU SCH (23:04)
[2018-12-06] MEDS: LATANOPROST 0.005% OU SCH (23:05)
[2018-12-06] MEDS: SYNTHROID PO SCH ×2 (23:19→23:20)
[2018-12-07] MEDS: HumaLOG SUB-Q SCH ×5 (00:59→21:15)
[2018-12-07] MEDS: LASIX IV SCH ×2 (05:48→17:46)
[2018-12-07 05:52] LABS: Hematocrit 24.3 % (35.5-45.6); Hemoglobin 7.7 gm/dl (11.8-15.2); Mean Corpuscular HGB Conc 32 % (32-34); Mean Corpuscular Volume 83 fl (84-94); Platelet Count 226 K/mm3 (140-440); Red Blood Count 2.92 M/mm3 (3.65-5.03)
[2018-12-07 05:54] LABS: Red Cell Distribution Width 24.9 % (13.2-15.2)
[2018-12-07 06:12] LABS: Calcium 8.6 mg/dL (8.4-10.2)
[2018-12-07] MEDS: DUONEB *Not for PRN Use IH SCH (07:55)
--- NOTE | 2018-12-07 07:59 | Progress Note ---
Assessment and Plan Assessment and plan: Patient is a 87 yo man with a history of HTN, borderline DM, OA, Obesity, HAP right pneumonia with bacteremia, Systolic CHF with estimated EF 45-50%, Non- ischemic troponin elevation, Atrial Fib, Staph Hominis bacteremia, Right Pleural Effusion, colon cancer s/p removal 2006 in the [facility], CKD 3 (cr was 1.7 on 11/12/18), AAA s/p EVAR here in July 2018 and newly diagnosis hypothyroidism on 10/2018 hospitalization (just discharged on 11/17/2018) who presents to [facility] ED with severe progressively worse constant JC/SOB with minimal activity for the last 2-3 days without relieving factors associated with orthopnea, and worsening leg swelling. He was sent home with oxygen but he doesn't use it. He states the tank is empty. * pCXR read as no acute findings, stable cardiomegaly, peripheral fibrotic changes R>L * Troponin T 0.071 and also 0.073 on * proBNP 4927 and it was 7891 on 11/06/2018 * Cr 2.0 now, was 1.7 on 11/12/18 -Acute on Chronic systolic heart failure: treat with iv lasix, consult Cardiology -Acute on chronic hypoxic respiratory failure, noncompliant with using O2: treat the heart failure -Acute on Chronic Renal failure stage 3, vasomotor nephropathy: treat the CHF, monitor closely, consult nephrology -Atrial fibrillation: continue coreg -Hypothyroidism: check TSH==>normal now -Diabetes mellitus type 2 suspected; check a1c, ssi, ada diet -History of AAA repair: Vascular has re-evaluated last admission in October, because of the bacteremia, -recent Staph Hominis bacteremia, pt should have finished the 2 weeks treatment: recheck blood culture DVT prophylaxis reviewed, Eliquis held due to worsening renal function, use sq heparin Disposition: continue inpatient group home reconciliation: Eliquis not listed and the losartan both held due to ARF Diet: ada/cardiac full code History Interval history: Patient was seen and examined. Follow-up on current diagnosis of chf, arf. Overnight uneventful. Patient denies any chest pain, shortness breath, nausea/vomiting or severe headaches. Imaging, nursing note, chart, labs and old chart reviewed. Discussed with patient. Hospitalist Physical - Physical exam Narrative exam: Gen: WDWN, NAD, Awake, Alert, Orientated x 3 HEENT: NCAT, EOMI, PERRL, OP Clear Neck: supple, no adenopathy, no thyromegaly,+ JVD CVS/Heart: RRR, normal S1S2, pulses present bilaterally Chest/Lungs: tight bs bilateral, Symmetrical chest expansion, reduced air entry bilaterally GI/Abdomen: soft, NTND, good bowel sounds, no guarding or rebound /Bladder: no suprapubic tenderness, no CVA or paraspinal tenderness Extermity/Skin: ble 2+ pitting edema, no obvious rash MSK: FROM x 4 Neuro: CN 2-12 grossly intact, no new focal deficits Psych: calm - Constitutional Vitals: Temp Pulse Resp BP Pulse Ox 97.6 F 90 17 95/40 93 12/07/18 04:40 12/07/18 04:40 12/07/18 04:40 12/07/18 04:40 12/07/18 04:40 Results - Labs CBC & Chem 7: 12/07/18 05:20 12/07/18 05:20 Labs: Laboratory Last Values WBC 6.4 K/mm3 (4.5-11.0) 12/07/18 05:20 RBC 2.92 M/mm3 (3.65-5.03) L 12/07/18 05:20 Hgb 7.7 gm/dl (11.8-15.2) L 12/07/18 05:20 Hct 24.3 % (35.5-45.6) L 12/07/18 05:20 MCV 83 fl (84-94) L 12/07/18 05:20 MCH 27 pg (28-32) L 12/07/18 05:20 MCHC 32 % (32-34) 12/07/18 05:20 RDW 24.9 % (13.2-15.2) H 12/07/18 05:20 Plt Count 226 K/mm3 (140-440) 12/07/18 05:20 Lymph % (Auto) 19.1 % (13.4-35.0) 12/06/18 08:58 [place] % (Auto) 10.3 % (0.0-7.3) H 12/06/18 08:58 Eos % (Auto) 7.9 % (0.0-4.3) H 12/06/18 08:58 Baso % (Auto) 0.6 % (0.0-1.8) 12/06/18 08:58 Lymph # 1.5 K/mm3 (1.2-5.4) 12/06/18 08:58 [place] # 0.8 K/mm3 (0.0-0.8) 12/06/18 08:58 Eos # 0.6 K/mm3 (0.0-0.4) H 12/06/18 08:58 Baso # 0.0 K/mm3 (0.0-0.1) 12/06/18 08:58 Add Manual Diff Complete 12/06/18 08:58 Seg Neutrophils % 62.1 % (40.0-70.0) 12/06/18 08:58 Seg Neutrophils # 4.7 K/mm3 (1.8-7.7) 12/06/18 08:58 PT 17.1 Sec. (12.2-14.9) H 12/06/18 10:18 INR 1.35 (0.87-1.13) H 12/06/18 10:18 APTT 35.2 Sec. (24.2-36.6) 12/06/18 10:18 Sodium 141 mmol/L (137-145) 12/07/18 05:20 Potassium 3.6 mmol/L (3.6-5.0) 12/07/18 05:20 Chloride 97.9 mmol/L (98-107) L 12/07/18 05:20 Carbon Dioxide 30 mmol/L (22-30) D 12/07/18 05:20 Anion Gap 17 mmol/L 12/07/18 05:20 BUN 28 mg/dL (9-20) H 12/07/18 05:20 Creatinine 1.8 mg/dL (0.8-1.5) H 12/07/18 05:20 Estimated GFR 43 ml/min 12/07/18 05:20 BUN/Creatinine Ratio 16 % 12/07/18 05:20 Glucose 99 mg/dL (75-100) 12/07/18 05:20 POC Glucose 97 (70-105) 12/07/18 06:09 Hemoglobin A1c 7.2 % (4-6) H 12/06/18 15:37 Calcium 8.6 mg/dL (8.4-10.2) 12/07/18 05:20 Magnesium 1.90 mg/dL (1.7-2.3) 12/07/18 05:20 Troponin T 0.071 ng/mL (0.00-0.029) H 12/06/18 10:18 NT-Pro-B Natriuret Pep 4927 pg/mL (0-900) H 12/06/18 10:18 Triglycerides 113 mg/dL (2-149) 12/06/18 10:18 Cholesterol 164 mg/dL (50-199) 12/06/18 10:18 LDL Cholesterol Direct 118 mg/dL (50-130) 12/06/18 10:18 HDL Cholesterol 37 mg/dL (40-59) L 12/06/18 10:18 Cholesterol/HDL Ratio 4.43 % 12/06/18 10:18 TSH 3.230 mlU/mL (0.270-4.200) 12/07/18 05:20
[2018-12-07] MEDS: COREG PO SCH (09:19)
[2018-12-07] MEDS: PROTONIX PO SCH (09:19)
[2018-12-07] MEDS: CATAPRES PO SCH ×2 (09:20→21:14)
[2018-12-07] MEDS: NORVASC PO SCH (09:20)
[2018-12-07] MEDS: ALPHAGAN P 0.15% OU SCH ×3 (09:23→16:35)
--- NOTE | 2018-12-07 10:16 | Consultation ---
History of Present Illness - Reason for Consult Consult date: 12/07/18 acute renal failure Requesting physician: ED BERMAN - History of Present Illness 87 yo with history of hypertension, type 2 diabetes mellitus, chronic systolic heart failure with ejection fraction of 40-50% and atrial fibrillation. Chronic kidney disease with creatinine of 1.7 in October 2018. Presented with 3 days his shortness of breath which is worse on walking even a short distance. Also associated with orthopnea. Denies any chest pain, palpitations, dizziness or diaphoresis. Admits to productive cough. No nausea or vomiting. On presentation BUN/Creatine were elevated at 26/2.0 mg/dl. Patient denies any voiding difficulties. No frequency, urgency, dysuria or hematuria. He has not been using nonsteroidal anti-inflammatory drugs and has not been exposed to any radiocontrast. There is no history of kidney stones or recurrent kidney infections. Past History Past Medical History: atrial fib, cancer (Colon Cancer), diabetes, heart failure, hypertension, hypothyroidism (Recent staph hominis bacteremia) Past Surgical History: Other (endovascular aortic Aneurysm repair 2017, colectomy 277 for colon cancer) Social history: lives with family (in [facility]. He is here for medical treatment and is staying with his son), other (Retired landscape maintenance internship). denies: smoking (quit smoking many years ago), alcohol abuse (quit drinking alcohol many years ago), prescription drug abuse, IV drug use Family history: stroke (mother following a stroke), other (father secondary to gastrointestinal bleeding. Sr. had kidney failure and was on dialysis before she in [place].) Medications and Allergies Allergies Allergy/AdvReac Type Severity Reaction Status Date / Time No Known Allergies Allergy Verified 07/17/18 07:04 Home Medications Medication Instructions Recorded Confirmed Last Taken Type Carvedilol [Coreg] 12.5 mg PO DAILY 06/18/18 12/06/18 07/26/18 History 12.5mg Losartan Potassium [Cozaar] 25 mg PO DAILY 06/18/18 12/06/18 07/26/18 History 25mg amLODIPine [Norvasc] 5 mg PO DAILY 06/18/18 12/06/18 07/26/18 History 5mg Pantoprazole [Protonix TAB] 40 mg PO QDAY 07/17/18 12/06/18 07/26/18 History 40mg Latanoprost 0.005% 1 drop OU HS 07/27/18 12/06/18 07/26/18 History 1 drop oxyCODONE /ACETAMINOPHEN [Percocet 1 tab PO Q6HR PRN #20 tablet 07/29/18 12/06/18 Unknown Rx 5/325 mg] Brimonidine 0.15% [Alphagan P 1 drops OU Q8H 11/06/18 12/06/18 Unknown History 0.15%] cloNIDine [Catapres] 0.1 mg PO BID 11/06/18 12/06/18 Unknown History Latanoprost 0.005% Eye Drop 1 drop OU HS 11/07/18 12/06/18 Unknown History Furosemide [Lasix TAB] 40 mg PO DAILY #30 tablet 11/16/18 12/06/18 Unknown Rx Levothyroxine [Synthroid] 150 mcg PO DAILY@0600 #30 tablet 11/16/18 12/06/18 Unk nown Rx Active Meds: Active Medications Albuterol/Ipratropium (Duoneb *Not For Prn Use*) 1 ampul IH BIDRT [facility] Last Admin: 12/07/18 07:55 Dose: 1 ampul Documented by: Amlodipine Besylate (Norvasc) 5 mg PO DAILY [facility] Last Admin: 12/07/18 09:20 Dose: 5 mg Documented by: Brimonidine Tartrate (Alphagan P 0.15%) 1 drops OU Q8H [facility] Last Admin: 12/07/18 09:23 Dose: 1 drops Documented by: Carvedilol (Coreg) 12.5 mg PO DAILY [facility] Last Admin: 12/07/18 09:19 Dose: 12.5 mg Documented by: Clonidine HCl (Catapres) 0.1 mg PO BID [facility] Last Admin: 12/07/18 09:20 Dose: 0.1 mg Documented by: Dextrose (D50w (25gm) Syringe) 50 ml IV PRN PRN PRN Reason: Hypoglycemia Furosemide (Lasix) 40 mg IV 0600,1800 [facility] Last Admin: 12/07/18 05:48 Dose: 40 mg Documented by: Heparin Sodium (Porcine) (Heparin) 5,000 unit SUB-Q Q12HR [facility] Last Admin: 12/06/18 15:32 Dose: 5,000 unit Documented by: Insulin Human Lispro (Humalog) 0 unit SUB-Q Q6HR [facility]; Protocol Last Admin: 12/07/18 06:25 Dose: Not Given Documented by: Latanoprost (Latanoprost 0.005%) 1 drops OU HS [facility] Last Admin: 12/06/18 23:05 Dose: 1 drops Documented by: Levothyroxine Sodium (Synthroid) 150 mcg PO DAILY@1800 [facility] Last Admin: 12/06/18 23:20 Dose: Not Given Documented by: Oxycodone/Acetaminophen (Percocet 5/325) 1 tab PO Q6H PRN PRN Reason: Pain, Moderate (4-6) Pantoprazole Sodium (Protonix) 40 mg PO QDAY [facility] Last Admin: 12/07/18 09:19 Dose: 40 mg Documented by: Review of Systems All systems: negative (Constitutional: no fever or chills though he sometimes feels warm. No anorexia or weight loss. HEENT: No sore throat but admits to sinus drainage no hearing or vision impairment . Cardiovascular: See history of present illness. No lower extremity swelling or dizziness. Respiratory: See history of present illness. No hemoptysis or wheezing. Gastrointestinal: No nausea, vomiting, diarrhea, abdominal pain, hematemesis or melena. Genitourinary: No frequency urgency dysuria or hematuria. hematologic: No abnormal bleeding or bruising. Integumentary: no pruritus or rash. Neurological: No headache no focal weakness or numbness, no syncope or seizures. Musculoskeletal: Has pain in his feet. No stiffness. Psychiatry: no anxiety or depression) Exam - Vital Signs Vital signs: Vital Signs Temp Pulse Resp BP Pulse Ox 97.6 F 90 16 117/61 95 12/06/18 08:45 12/06/18 08:45 12/06/18 08:45 12/06/18 08:45 12/06/18 08:45 - Physical Exam Narrative exam: Elderly -[place] male lying in bed in no acute distress, son at the bedside HEENT: NCAT, pink oral mucous membrane Neck: Supple, no venous distention CVS: S1S2 irregular with no murmur, rub or gallop Chest: Clear to auscultation Abdomen: Protuberant, soft, periumbilical hernia, easily reducible, nontender, no organomegaly, bowel sounds are present Extremities: No edema : deferred Skin: Hyperpigmentation in the feet and lower legs Neuro: Awake, alert no focal deficits Results - Lab Results 12/07/18 05:20 12/07/18 05:20 Most recent lab results Calcium 8.6 mg/dL (8.4-10.2) 12/07/18 05:20 Magnesium 1.90 mg/dL (1.7-2.3) 12/07/18 05:20 Assessment and Plan - Patient Problems (1) Acute on chronic systolic heart failure Current Visit: Yes Status: Acute Plan to address problem: Agree with diuresis but since patient has improved, changed to by mouth Lasix after this morning's dose (2) Acute kidney injury Current Visit: Yes Status: Acute Plan to address problem: Vasomotor nephropathy secondary to acute cardiorenal syndrome. Improving (3) Type 2 diabetes mellitus with diabetic chronic kidney disease Current Visit: Yes Status: Acute Plan to address problem: Blood sugar control by primary attending (4) Hypertensive chronic kidney disease with stage 1 through stage 4 chronic k idney disease, or unspecified chronic kidney disease Current Visit: Yes Status: Acute Plan to address problem: Follow blood pressure and current medications (5) Anemia in chronic kidney disease Current Visit: Yes Status: Acute Plan to address problem: Hgb decreasing. Check stool for Occult BLOOD. CHECK IRON, B12 AND FOLIC ACID STORES. 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 Kidney function is now back to close to his baseline.
--- NOTE | 2018-12-07 10:54 | Consultation ---
Addendum entered and electronically signed by ENDY HANKINS MD 12/07/18 17:48: A 57-year-old man with a history of endovascular AAA repair, paroxysmal atrial f ibrillation, who presents to the hospital with poorly characterized dyspnea. On his chest x-ray, there is a granular, interstitial infiltrate that involves the entire right lung field. Conversely, there is sparing of the left lung. The radiologist interpretation is that of chronic fibrosis of the right lung, unchanged from the previous chest x-ray. With respect to cardiac workup, EKG is sinus rhythm with frequent PACs, otherwise no acute changes. He has a history of paroxysmal atrial fibrillation, but does not appear to be on chronic oral anticoagulation. An echocardiogram just last month reported 1120 ejection fraction 45-50%. Other comorbidities include anemia with a hematocrit 24-28, chronic kidney disease, creatinine 2.0. Recommendations: It will appear that he is presenting shortness of breath is likely related to the right lung pathology. Recommend pulmonary consultation on follow-up. There is no clinical, ECG or x-ray evidence of acute cardiac issues at the current time. We will proceed a conservative cardiac approach to management. He is not likely a candidate for oral anticoagulation going forward due to his significant anemia. We will continue medications for atrial fibrillation on rate control, and for primary atherosclerosis management and prevention. Original Note: History of Present Illness Consult date: 12/07/18 Consult reason: congestive heart failure History of present illness: Mr Ribera is an 87 year old male with a history of AAA repair, permanent atrial fibrillation, on rate controlling agents. A month ago he had an echocardiogram that reports a left ventricular ejection fraction 45-50%. Patient returns with complaints of shortness of breath on exertion. There were no reports of chest pain, palpitations or lower extremity edema. A chest x-ray reports cardiomegaly with peripheral fibrotic changes, right greater than the left. Lab studies revealed acute renal failure, creatinine of 2.0 and anemia with a HCT of 24.3. An EKG shows atrial fibrillation with a well controlled ventricular rate. Past History Past Surgical History: Other (endovascular aortic Aneurysm repair 2017, colectomy 277 for colon cancer) Social history: lives with family (in the [facility]. He is here for medical treatment and is staying with his son), other (Retired hotel maintenance worker). denies: smoking (quit smoking many years ago), alcohol abuse (quit drinking alcohol many years ago), prescription drug abuse, IV drug use Family history: stroke (mother following a stroke), other (father secondary to gastrointestinal bleeding. Sr. had kidney failure and was on dialysis before she in [place].) Medications and Allergies Allergies Allergy/AdvReac Type Severity Reaction Status Date / Time No Known Allergies Allergy Verified 07/17/18 07:04 Home Medications Medication Instructions Recorded Confirmed Last Taken Type Carvedilol [Coreg] 12.5 mg PO DAILY 06/18/18 12/06/18 07/26/18 History 12.5mg Losartan Potassium [Cozaar] 25 mg PO DAILY 06/18/18 12/06/18 07/26/18 History 25mg amLODIPine [Norvasc] 5 mg PO DAILY 06/18/18 12/06/18 07/26/18 History 5mg Pantoprazole [Protonix TAB] 40 mg PO QDAY 07/17/18 12/06/18 07/26/18 History 40mg Latanoprost 0.005% 1 drop OU HS 07/27/18 12/06/18 07/26/18 History 1 drop oxyCODONE /ACETAMINOPHEN [Percocet 1 tab PO Q6HR PRN #20 tablet 07/29/18 0 12/06/18 Unknown Rx 5/325 mg] Brimonidine 0.15% [Alphagan P 1 drops OU Q8H 11/06/18 12/06/18 Unknown History 0.15%] cloNIDine [Catapres] 0.1 mg PO BID 11/06/18 12/06/18 Unknown History Latanoprost 0.005% Eye Drop 1 drop OU HS 11/07/18 12/06/18 Unknown History Furosemide [Lasix TAB] 40 mg PO DAILY #30 tablet 11/16/18 12/06/18 Unknown Rx Levothyroxine [Synthroid] 150 mcg PO DAILY@0600 #30 tablet 11/16/18 12/06/18 Unknown Rx Active Meds: Active Medications Albuterol/Ipratropium (Duoneb *Not For Prn Use*) 1 ampul IH BIDRT [facility] Last Admin: 12/07/18 07:55 Dose: 1 ampul Documented by: Amlodipine Besylate (Norvasc) 5 mg PO DAILY [facility] Last Admin: 12/07/18 09:20 Dose: 5 mg Documented by: Brimonidine Tartrate (Alphagan P 0.15%) 1 drops OU Q8H [facility] Last Admin: 12/07/18 09:23 Dose: 1 drops Documented by: Carvedilol (Coreg) 12.5 mg PO DAILY [facility] Last Admin: 12/07/18 09:19 Dose: 12.5 mg Documented by: Clonidine HCl (Catapres) 0.1 mg PO BID [facility] Last Admin: 12/07/18 09:20 Dose: 0.1 mg Documented by: Dextrose (D50w (25gm) Syringe) 50 ml IV PRN PRN PRN Reason: Hypoglycemia Furosemide (Lasix) 40 mg IV 0600,1800 [facility] Last Admin: 12/07/18 05:48 Dose: 40 mg Documented by: Heparin Sodium (Porcine) (Heparin) 5,000 unit SUB-Q Q12HR [facility] Last Admin: 12/06/18 15:32 Dose: 5,000 unit Documented by: Insulin Human Lispro (Humalog) 0 unit SUB-Q Q6HR [facility]; Protocol Last Admin: 12/07/18 06:25 Dose: Not Given Documented by: Latanoprost (Latanoprost 0.005%) 1 drops OU HS [facility] Last Admin: 12/06/18 23:05 Dose: 1 drops Documented by: Levothyroxine Sodium (Synthroid) 150 mcg PO DAILY@1800 [facility] Last Admin: 12/06/18 23:20 Dose: Not Given Documented by: Oxycodone/Acetaminophen (Percocet 5/325) 1 tab PO Q6H PRN PRN Reason: Pain, Moderate (4-6) Pantoprazole Sodium (Protonix) 40 mg PO QDAY [facility] Last Admin: 12/07/18 09:19 Dose: 40 mg Documented by: Physical Examination Vital Signs Temp Pulse Resp BP Pulse Ox 97.6 F 90 16 117/61 95 12/06/18 08:45 12/06/18 08:45 12/06/18 08:45 12/06/18 08:45 12/06/18 08:45 General appearance: no acute distress HEENT: Positive: PERRL Neck: Positive: trachea midline Cardiac: Positive: irregularly irregular Lungs: Positive: Decreased Breath Sounds Neuro: Positive: Grossly Intact Extremities: Absent: edema Results 12/07/18 05:20 12/07/18 05:20 Coagulation 12/06/18 Range/Units 10:18 PT 17.1 H (12.2-14.9) Sec. INR 1.35 H (0.87-1.13) APTT 35.2 (24.2-36.6) Sec. Lipids 12/06/18 Range/Units 10:18 Triglycerides 113 (2-149) mg/dL Cholesterol 164 (50-199) mg/dL HDL Cholesterol 37 L (40-59) mg/dL Cholesterol/HDL Ratio 4.43 % CBC 12/07/18 Range/Units 05:20 WBC 6.4 (4.5-11.0) K/mm3 RBC 2.92 L (3.65-5.03) M/mm3 Hgb 7.7 L (11.8-15.2) gm/dl Hct 24.3 L (35.5-45.6) % Plt Count 226 (140-440) K/mm3 Comprehensive Metabolic Panel 12/07/18 Range/Units 05:20 Sodium 141 (137-145) mmol/L Potassium 3.6 (3.6-5.0) mmol/L Chloride 97.9 L (98-107) mmol/L Carbon Dioxide 30 D (22-30) mmol/L BUN 28 H (9-20) mg/dL Creatinine 1.8 H (0.8-1.5) mg/dL Glucose 99 (75-100) mg/dL Calcium 8.6 (8.4-10.2) mg/dL Assessment and Plan Shortness of breath cxr reports cardiomegaly with peripheral fibrotic changes, right greater than the left. Anemia Acute renal failure History of AAA repair Permanent atrial fibrillation, rate control An echocardiogram 10/2018 reports a left ventricular ejection fraction 45-50%. Recommend: Pulmonary consultation and evaluation of shortness of breath with an abnormal cxr.
--- NOTE | 2018-12-07 11:23 | Progress Note ---
Assessment and Plan Assessment and plan: Patient is a 87 yo man with a history of HTN, borderline DM, OA, Obesity, HAP right pneumonia with bacteremia, Systolic CHF with estimated EF 45-50%, Non- ischemic troponin elevation, Atrial Fib, Staph Hominis bacteremia, Right Pleural Effusion, colon cancer s/p removal 2006 in the [facility], CKD 3 (cr was 1.7 on 11/12/18), AAA s/p EVAR here in July 2018 and newly diagnosis hypothyroidism on 10/2018 hospitalization (just discharged on 11/17/2018) who presents to [facility] ED with severe progressively worse constant JC/SOB with minimal activity for the last 2-3 days without relieving factors associated with orthopnea, and worsening leg swelling. He was sent home with oxygen but he doesn't use it. He states the tank is empty. * pCXR read as no acute findings, stable cardiomegaly, peripheral fibrotic changes R>L * Troponin T 0.071 and also 0.073 on * proBNP 4927 and it was 7891 on 11/06/2018 * Cr 2.0 now, was 1.7 on 11/12/18 -Acute on Chronic systolic heart failure: treat with iv lasix, consult Cardiology -Acute on chronic hypoxic respiratory failure, noncompliant with using O2: treat the heart failure -Acute on Chronic Renal failure stage 3, vasomotor nephropathy: treat the CHF, monitor closely, consult nephrology -Atrial fibrillation: continue coreg -Hypothyroidism: check TSH==>normal now -Diabetes mellitus type 2 suspected; check a1c, ssi, ada diet -History of AAA repair: Vascular has re-evaluated last admission in October, because of the bacteremia, -recent Staph Hominis bacteremia, pt should have finished the 2 weeks treatment: recheck blood culture DVT prophylaxis reviewed, Eliquis held due to worsening renal function, use sq heparin Disposition: continue inpatient [facility] reconciliation: Eliquis not listed and the losartan both held due to ARF Diet: ada/cardiac full code Patient had a 6 beat run of VTach (8:05am) while receiving breathing treatment, I was in the room talking to him; he was asymptomatic. Son Claudia at bedside. Notified Cardiology. History Interval history: Patient was seen and examined. Follow-up on current diagnosis of chf, arf. Overnight uneventful. Patient denies any chest pain, shortness breath, nausea/vomiting or severe headaches. Imaging, nursing note, chart, labs and old chart reviewed. Discussed with patient. Hospitalist Physical - Physical exam Narrative exam: Gen: WDWN, NAD, Awake, Alert, Orientated x 3 HEENT: NCAT, EOMI, PERRL, OP Clear Neck: supple, no adenopathy, no thyromegaly,+ JVD CVS/Heart: RRR, normal S1S2, pulses present bilaterally Chest/Lungs: tight bs bilateral, Symmetrical chest expansion, reduced air entry bilaterally GI/Abdomen: soft, NTND, good bowel sounds, no guarding or rebound /Bladder: no suprapubic tenderness, no CVA or paraspinal tenderness Extermity/Skin: ble 2+ pitting edema, no obvious rash MSK: FROM x 4 Neuro: CN 2-12 grossly intact, no new focal deficits Psych: calm - Constitutional Vitals: Temp Pulse Resp BP Pulse Ox 99.3 F 70 18 129/62 90 12/07/18 08:33 12/07/18 09:19 12/07/18 08:33 12/07/18 08:33 12/07/18 08:33 General appearance: Present: no acute distress Results - Labs CBC & Chem 7: 12/07/18 05:20 12/07/18 05:20 Labs: Laboratory Last Values WBC 6.4 K/mm3 (4.5-11.0) 12/07/18 05:20 RBC 2.92 M/mm3 (3.65-5.03) L 12/07/18 05:20 Hgb 7.7 gm/dl (11.8-15.2) L 12/07/18 05:20 Hct 24.3 % (35.5-45.6) L 12/07/18 05:20 MCV 83 fl (84-94) L 12/07/18 05:20 MCH 27 pg (28-32) L 12/07/18 05:20 MCHC 32 % (32-34) 12/07/18 05:20 RDW 24.9 % (13.2-15.2) H 12/07/18 05:20 Plt Count 226 K/mm3 (140-440) 12/07/18 05:20 Lymph % (Auto) 19.1 % (13.4-35.0) 12/06/18 08:58 Todd % (Auto) 10.3 % (0.0-7.3) H 12/06/18 08:58 Eos % (Auto) 7.9 % (0.0-4.3) H 12/06/18 08:58 Baso % (Auto) 0.6 % (0.0-1.8) 12/06/18 08:58 Lymph # 1.5 K/mm3 (1.2-5.4) 12/06/18 08:58 Todd # 0.8 K/mm3 (0.0-0.8) 12/06/18 08:58 Eos # 0.6 K/mm3 (0.0-0.4) H 12/06/18 08:58 Baso # 0.0 K/mm3 (0.0-0.1) 12/06/18 08:58 Add Manual Diff Complete 12/06/18 08:58 Seg Neutrophils % 62.1 % (40.0-70.0) 12/06/18 08:58 Seg Neutrophils # 4.7 K/mm3 (1.8-7.7) 12/06/18 08:58 PT 17.1 Sec. (12.2-14.9) H 12/06/18 10:18 INR 1.35 (0.87-1.13) H 12/06/18 10:18 APTT 35.2 Sec. (24.2-36.6) 12/06/18 10:18 Sodium 141 mmol/L (137-145) 12/07/18 05:20 Potassium 3.6 mmol/L (3.6-5.0) 12/07/18 05:20 Chloride 97.9 mmol/L (98-107) L 12/07/18 05:20 Carbon Dioxide 30 mmol/L (22-30) D 12/07/18 05:20 Anion Gap 17 mmol/L 12/07/18 05:20 BUN 28 mg/dL (9-20) H 12/07/18 05:20 Creatinine 1.8 mg/dL (0.8-1.5) H 12/07/18 05:20 Estimated GFR 43 ml/min 12/07/18 05:20 BUN/Creatinine Ratio 16 % 12/07/18 05:20 Glucose 99 mg/dL (75-100) 12/07/18 05:20 POC Glucose 97 (70-105) 12/07/18 06:09 Hemoglobin A1c 7.2 % (4-6) H 12/06/18 15:37 Calcium 8.6 mg/dL (8.4-10.2) 12/07/18 05:20 Magnesium 1.90 mg/dL (1.7-2.3) 12/07/18 05:20 Troponin T 0.071 ng/mL (0.00-0.029) H 12/06/18 10:18 NT-Pro-B Natriuret Pep 4927 pg/mL (0-900) H 12/06/18 10:18 Triglycerides 113 mg/dL (2-149) 12/06/18 10:18 Cholesterol 164 mg/dL (50-199) 12/06/18 10:18 LDL Cholesterol Direct 118 mg/dL (50-130) 12/06/18 10:18 HDL Cholesterol 37 mg/dL (40-59) L 12/06/18 10:18 Cholesterol/HDL Ratio 4.43 % 12/06/18 10:18 TSH 3.230 mlU/mL (0.270-4.200) 12/07/18 05:20
--- NOTE | 2018-12-07 13:10 | Consultation ---
History of Present Illness Consult date: 12/07/18 Reason for consult: dyspnea History of present illness: Culture evaluated case of an 87-year-old male, admitted to the hospital related to her shortness of breath episode and acute exacerbation of congestive heart failure. The patient is well known to us service with multiple medical problems. Seen previously due to,Acute hypoxic respiratory failure, controlled, Chest pain/non-STEMI, pneumonia/Pulmonary infiltrate versus asymmetric edema, with staph hominis bacteremia, Acute Systolic CHF, EF 45-50% , A. fib, hypertension, past medical history of AAA with EVAR procedure and past medical history of colon cancer. Reports that he was doing well at home, after he was discharged ultimately started with shortness of breath. Incidentally, he reports that he was discharged on oxygen but his time was empty and had not been refilled after discharge. He denied to me any chest pain, fever cough or hemoptysis. Noted with with A. fib and a short run of V. tach by Dr. Mckeon after admission Past History Past Medical History: atrial fib, cancer (Colon Cancer), diabetes, heart failure, hypertension, hypothyroidism (Recent staph hominis bacteremia) Past Surgical History: Other (endovascular aortic Aneurysm repair 2017, colectomy 277 for colon cancer) Social history: lives with family (in the [facility]. He is here for medical treatment and is staying with his son), other (Retired supervisor maintenance and custodians). denies: smoking (quit smoking many years ago), alcohol abuse (quit drinking alcohol many years ago), prescription drug abuse, IV drug use Family history: stroke (mother following a stroke), other (father secondary to gastrointestinal bleeding. Sr. had kidney failure and was on dialysis before she in [place].) Medications and Allergies Allergies Allergy/AdvReac Type Severity Reaction Status Date / Time No Known Allergies Allergy Verified 07/17/18 07:04 Home Medications Medication Instructions Recorded Confirmed Last Taken Type Carvedilol [Coreg] 12.5 mg PO DAILY 06/18/18 12/06/18 07/26/18 History 12.5mg Losartan Potassium [Cozaar] 25 mg PO DAILY 06/18/18 12/06/18 07/26/18 History 25mg amLODIPine [Norvasc] 5 mg PO DAILY 06/18/18 12/06/18 07/26/18 History 5mg Pantoprazole [Protonix TAB] 40 mg PO QDAY 07/17/18 12/06/18 07/26/18 History 40mg Latanoprost 0.005% 1 drop OU HS 07/27/18 12/06/18 07/26/18 History 1 drop oxyCODONE /ACETAMINOPHEN [Percocet 1 tab PO Q6HR PRN #20 tablet 07/29/18 12/06/18 Unknown Rx 5/325 mg] Brimonidine 0.15% [Alphagan P 1 drops OU Q8H 11/06/18 12/06/18 Unknown History 0.15%] cloNIDine [Catapres] 0.1 mg PO BID 11/06/18 12/06/18 Unknown History Latanoprost 0.005% Eye Drop 1 drop OU HS 11/07/18 12/06/18 Unknown History Furosemide [Lasix TAB] 40 mg PO DAILY #30 tablet 11/16/18 12/06/18 Unknown Rx Levothyroxine [Synthroid] 150 mcg PO DAILY@0600 #30 tablet 11/16/18 12/06/18 Unknown Rx Active Meds: Active Medications Albuterol/Ipratropium (Duoneb *Not For Prn Use*) 1 ampul IH BIDRT [facility] Last Admin: 12/07/18 07:55 Dose: 1 ampul Documented by: Amlodipine Besylate (Norvasc) 5 mg PO DAILY [facility] Last Admin: 12/07/18 09:20 Dose: 5 mg Documented by: Brimonidine Tartrate (Alphagan P 0.15%) 1 drops OU Q8H [facility] Last Admin: 12/07/18 09:23 Dose: 1 drops Documented by: Carvedilol (Coreg) 12.5 mg PO DAILY [facility] Last Admin: 12/07/18 09:19 Dose: 12.5 mg Documented by: Clonidine HCl (Catapres) 0.1 mg PO BID [facility] Last Admin: 12/07/18 09:20 Dose: 0.1 mg Documented by: Dextrose (D50w (25gm) Syringe) 50 ml IV PRN PRN PRN Reason: Hypoglycemia Furosemide (Lasix) 40 mg IV 0600,1800 [facility] Last Admin: 12/07/18 05:48 Dose: 40 mg Documented by: Heparin Sodium (Porcine) (Heparin) 5,000 unit SUB-Q Q12HR [facility] Last Admin: 12/06/18 15:32 Dose: 5,000 unit Documented by: Insulin Human Lispro (Humalog) 0 unit SUB-Q Q6HR [facility]; Protocol Last Admin: 12/07/18 12:57 Dose: Not Given Documented by: Latanoprost (Latanoprost 0.005%) 1 drops OU HS [facility] Last Admin: 12/06/18 23:05 Dose: 1 drops Documented by: Levothyroxine Sodium (Synthroid) 150 mcg PO DAILY@1800 [facility] Last Admin: 12/06/18 23:20 Dose: Not Given Documented by: Oxycodone/Acetaminophen (Percocet 5/325) 1 tab PO Q6H PRN PRN Reason: Pain, Moderate (4-6) Pantoprazole Sodium (Protonix) 40 mg PO QDAY [facility] Last Admin: 12/07/18 09:19 Dose: 40 mg Documented by: Review of Systems Constitutional: no weight loss, no weight gain, no fever, no chills, no sweats Cardiovascular: orthopnea, palpitations, edema, shortness of breath, dyspnea on exertion, no chest pain, no syncope Respiratory: no cough, no cough with sputum, no excessive sputum, no hemoptysis Gastrointestinal: no nausea, no vomiting, no diarrhea Physical Examination Vital signs: Vital Signs Temp Pulse Resp BP Pulse Ox 97.6 F 90 16 117/61 95 12/06/18 08:45 12/06/18 08:45 12/06/18 08:45 12/06/18 08:45 12/06/18 08:45 General appearance: no acute distress, alert Eyes: non-icteric ENT: oropharynx moist Neck: supple, no JVD Ascultation: Bilateral: clear, diminished breath sounds Cardiovascular: irregular rhythm Gastrointestinal: normoactive bowel sounds, non-distended Integumentary: normal Extremities: no cyanosis, no edema (trace pretibial) Musculoskeletal: no deformities normal mental status, non-focal exam mood appropriate, affect normal Results - Laboratory Findings CBC and BMP: 12/07/18 05:20 12/07/18 05:20 PT/INR, D-dimer PT 17.1 Sec. (12.2-14.9) H 12/06/18 10:18 INR 1.35 (0.87-1.13) H 12/06/18 10:18 Abnormal lab findings: Abnormal Labs 12/06/18 12/06/18 12/06/18 08:58 08:58 10:18 RBC 3.23 L Hgb 8.6 L Hct 28.5 L MCV MCH 27 L MCHC 30 L RDW 26.0 H Piatt % (Auto) 10.3 H Eos % (Auto) 7.9 H Eos # 0.6 H PT INR Sodium 136 L Chloride BUN 26 H Creatinine 2.0 H Glucose 142 H POC Glucose Hemoglobin A1c Troponin T 0.071 H NT-Pro-B Natriuret Pep 4927 H HDL Cholesterol 37 L 12/06/18 12/06/18 12/06/18 10:18 15:37 19:31 RBC Hgb Hct MCV MCH MCHC RDW Piatt % (Auto) Eos % (Auto) Eos # PT 17.1 H INR 1.35 H Sodium Chloride BUN Creatinine Glucose POC Glucose 161 H Hemoglobin A1c 7.2 H Troponin T NT-Pro-B Natriuret Pep HDL Cholesterol 12/07/18 12/07/18 05:20 05:20 RBC 2.92 L Hgb 7.7 L Hct 24.3 L MCV 83 L MCH 27 L MCHC RDW 24.9 H Piatt % (Auto) Eos % (Auto) Eos # PT INR Sodium Chloride 97.9 L BUN 28 H Creatinine 1.8 H Glucose POC Glucose Hemoglobin A1c Troponin T NT-Pro-B Natriuret Pep HDL Cholesterol - Diagnostic Findings Chest x-ray: report reviewed, image reviewed Assessment and Plan Dyspnea secondary to heart failure exacerbation and possibly lack of oxygen support Congestive heart failure with exacerbation A. fib V. tach episode Hypoxemic respiratory failure per history. Needs to be reevaluated before discharge Recommendations Continue gentle diuresis and CHF management. Monitor intake and output, serum electrolytes Continue oxygen support Ambulates patient has tolerated a monitor oximetry on room air Coordinate with caser any additional oxygen need of the above. DVT prophylaxis Follow-up of cardiology orders. Discussed with patient in detail. All questions answered.
[2018-12-07] MEDS: HEPARIN SUB-Q SCH ×2 (13:58→21:15)
[2018-12-07] MEDS ORDERED: PROVENTIL IH PRN (16:39)
[2018-12-07] MEDS: SYNTHROID PO SCH (17:45)
[2018-12-07] MEDS: LATANOPROST 0.005% OU SCH (21:14)
[2018-12-08] MEDS: HumaLOG SUB-Q SCH ×4 (01:23→18:05)
[2018-12-08] MEDS: LASIX IV SCH ×2 (06:39→17:52)
[2018-12-08 06:45] LABS: Calcium 8.4 mg/dL (8.4-10.2)
--- NOTE | 2018-12-08 08:51 | Progress Note ---
Assessment and Plan - Patient Problems (1) Acute on chronic systolic heart failure Current Visit: Yes Status: Acute Plan to address problem: Now on by mouth Lasix (2) Acute kidney injury Current Visit: Yes Status: Acute Plan to address problem: Vasomotor nephropathy secondary to acute cardiorenal syndrome. Improving. May be back to his baseline (3) Type 2 diabetes mellitus with diabetic chronic kidney disease Current Visit: Yes Status: Acute Plan to address problem: Blood sugar control by primary attending (4) Hypertensive chronic kidney disease with stage 1 through stage 4 chronic kidney disease, or unspecified chronic kidney disease Current Visit: Yes Status: Acute Plan to address problem: Follow blood pressure and current medications (5) Anemia in chronic kidney disease Current Visit: Yes Status: Acute Plan to address problem: Hgb decreasing. B12 low normal. Folic acid normal. Give a dose of vitamin B12. 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 Kidney function is now back to close to his baseline. Subjective Date of service: 12/08/18 Principal diagnosis: chronic kidney disease Interval history: Patient seen lying in bed. Son at bedside. He has no new complaints. Still dyspneic on exertion but improving Objective - Exam Narrative Exam: Elderly -[place] male lying in bed in no acute distress, son at the bedside HEENT: NCAT, pink oral mucous membrane Neck: Supple, no venous distention CVS: S1S2 irregular with no murmur, rub or gallop Chest: Clear to auscultation Abdomen: Protuberant, soft, periumbilical hernia, easily reducible, nontender, no organomegaly, bowel sounds are present Extremities: No edema : deferred Skin: Hyperpigmentation in the feet and lower legs Neuro: Awake, alert no focal deficits - Vital Signs Vital signs: Vital Signs - 12hr 12/08/18 12/08/18 12/08/18 00:04 04:00 08:16 Temperature 98.2 F 98.1 F 98.3 F Pulse Rate 77 71 75 Pulse Rate [ Right Radial] Respiratory 18 20 Rate Blood Pressure 123/73 113/52 104/56 O2 Sat by Pulse 99 98 98 Oximetry 12/08/18 08:24 Temperature Pulse Rate Pulse Rate [ 78 Right Radial] Respiratory 16 Rate Blood Pressure O2 Sat by Pulse Oximetry - Lab 12/07/18 05:20 12/08/18 05:47 Most recent lab results Calcium 8.4 mg/dL (8.4-10.2) 12/08/18 05:47 Magnesium 1.90 mg/dL (1.7-2.3) 12/07/18 05:20 Medications & Allergies - Medications Allergies/Adverse Reactions: Allergies No Known Allergies Allergy (Verified 07/17/18 07:04) Home Medications: Home Medications Medication Instructions Recorded Confirmed Last Taken Type Carvedilol [Coreg] 12.5 mg PO DAILY 06/18/18 12/06/18 07/26/18 History 12.5mg Losartan Potassium [Cozaar] 25 mg PO DAILY 06/18/18 12/06/18 07/26/18 History 25mg amLODIPine [Norvasc] 5 mg PO DAILY 06/18/18 12/06/18 07/26/18 History 5mg Pantoprazole [Protonix TAB] 40 mg PO QDAY 07/17/18 12/06/18 07/26/18 History 40mg Latanoprost 0.005% 1 drop OU HS 07/27/18 12/06/18 07/26/18 History 1 drop oxyCODONE /ACETAMINOPHEN [Percocet 1 tab PO Q6HR PRN #20 tablet 07/29/18 Unknown Rx 5/325 mg] Brimonidine 0.15% [Alphagan P 1 drops OU Q8H 11/06/18 12/06/18 Unknown History 0.15%] cloNIDine [Catapres] 0.1 mg PO BID 11/06/18 12/06/18 Unknown History Latanoprost 0.005% Eye Drop 1 drop OU HS 11/07/18 12/06/18 Unknown History Furosemide [Lasix TAB] 40 mg PO DAILY #30 tablet 11/16/18 12/06/18 Unknown Rx Levothyroxine [Synthroid] 150 mcg PO DAILY@0600 #30 tablet 11/16/18 12/06/18 Unknown Rx Active Medications: Generic Name Dose Route Start Last Admin Trade Name Freq PRN Reason Stop Dose Admin Albuterol 2.5 mg 12/07/18 16:39 Proventil IH Q4HRT PRN Shortness Of Breath Amlodipine Besylate 5 mg 12/06/18 15:00 12/07/18 09:20 Norvasc PO 5 mg DAILY [facility] Administration Brimonidine Tartrate 1 drops 12/06/18 15:00 12/07/18 16:35 Alphagan P 0.15% OU 1 drops Q8H [facility] Administration Carvedilol 12.5 mg 12/06/18 15:00 12/07/18 09:19 Coreg PO 12.5 mg DAILY [facility] Administration Clonidine HCl 0.1 mg 12/06/18 22:00 12/07/18 21:14 Catapres PO 0.1 mg BID [facility] Administration Dextrose 50 ml 12/06/18 14:14 D50w (25gm) Syringe IV PRN PRN Hypoglycemia Furosemide 40 mg 12/06/18 18:00 12/08/18 06:39 Lasix IV 40 mg 0600,1800 [facility] Administration Heparin Sodium (Porcine) 5,000 unit 12/07/18 14:16 12/07/18 21:15 Heparin SUB-Q 5,000 unit Q12HR [facility] Administration Insulin Human Lispro 0 unit 12/06/18 15:00 12/08/18 06:38 Humalog SUB-Q Not Given Q6HR [facility] Protocol Latanoprost 1 drops 12/06/18 22:00 12/07/18 21:14 Latanoprost 0.005% OU 1 drops HS [facility] Administration Levothyroxine Sodium 150 mcg 12/06/18 23:15 12/07/18 17:45 Synthroid PO 150 mcg DAILY@1800 [facility] Administration Oxycodone/Acetaminophen 1 tab 12/06/18 14:06 12/07/18 11:00 Percocet 5/325 PO 1 tab Q6H PRN Administration Pain, Moderate (4-6) Pantoprazole Sodium 40 mg 12/07/18 10:00 12/07/18 09:19 Protonix PO 40 mg QDAY [facility] Administration
[2018-12-08] MEDS: HEPARIN SUB-Q SCH ×2 (09:38→21:04)
[2018-12-08] MEDS: COREG PO SCH (09:38)
[2018-12-08] MEDS: PROTONIX PO SCH (09:38)
[2018-12-08] MEDS: NORVASC PO SCH (09:38)
[2018-12-08] MEDS: CATAPRES PO SCH ×2 (09:38→21:04)
[2018-12-08] MEDS: ALPHAGAN P 0.15% OU SCH ×4 (09:41→21:05)
--- NOTE | 2018-12-08 11:21 | Progress Note ---
Addendum entered and electronically signed by ENDY HANKINS MD 12/08/18 14:18: I will defer to pulmonary for follow-up evaluation and management of the unilat eral, persistent right sided lung infiltrate. The left lung is relatively spared, unlikely finding for interstitial pulmonary edema. Original Note: Assessment and Plan Shortness of breath cxr reports cardiomegaly with peripheral fibrotic changes, right greater than the left. Anemia Acute renal failure History of AAA repair Permanent atrial fibrillation, rate control patient is not a candidate for oral anticoagulation due to significant anemia. An echocardiogram 10/2018 reports a left ventricular ejection fraction 45-50%. Recommend: Continue rate controlling agents for persistent atrial fibrillation. Otherwise, conservative cardiac management. Subjective Date of service: 12/08/18 Interval history: Patient has no complaints. Objective Vital Signs Temp Pulse Pulse Resp BP BP Pulse Ox 12/08/18 08:24 78 16 12/08/18 08:16 98.3 F 75 20 104/56 98 12/08/18 04:00 98.1 F 71 18 113/52 98 12/08/18 00:04 98.2 F 77 123/73 99 12/07/18 20:00 67 12/07/18 19:54 98.2 F 78 18 129/67 98 12/07/18 12:01 98.5 F 81 16 116/61 2 L 12/07/18 12:00 80 - Physical Examination General: No Apparent Distress HEENT: Positive: PERRL Neck: Positive: trachea midline Cardiac: Positive: Reg Rate and Rhythm Lungs: Positive: Decreased Breath Sounds Neuro: Positive: Grossly Intact Extremities: Absent: edema - Labs and Meds Comprehensive Metabolic Panel 12/08/18 Range/Units 05:47 Sodium 141 (137-145) mmol/L Potassium 3.5 L (3.6-5.0) mmol/L Chloride 97.1 L (98-107) mmol/L Carbon Dioxide 32 H (22-30) mmol/L BUN 29 H (9-20) mg/dL Creatinine 1.8 H (0.8-1.5) mg/dL Glucose 104 H (75-100) mg/dL Calcium 8.4 (8.4-10.2) mg/dL
--- NOTE | 2018-12-08 13:15 | Progress Note ---
Assessment and Plan Dyspnea secondary to heart failure exacerbation and possibly lack of oxygen support Congestive heart failure with exacerbation A. fib V. tach episode Hypoxemic respiratory failure per history. Needs follow-up on his oxygen orders prior to discharge Recommendations Continue gentle diuresis and CHF management. See cardiology recommendations Continue oxygen support Ambulates patient has tolerated a monitor oximetry on room air Coordinate with caseworker protective services any additional oxygen need of the above. DVT prophylaxis Follow-up of cardiology orders. Discussed with patient in detail. All questions answered. Subjective Date of service: 12/08/18 Principal diagnosis: heart failure, hypoxemia Interval history: He reports no respiratory complaints. No events overnight. Appears to be very comfortable on nasal cannula 2 L/m Objective Vital Signs - 12hr 12/08/18 12/08/18 12/08/18 04:00 08:16 08:24 Temperature 98.1 F 98.3 F Pulse Rate 71 75 Pulse Rate [ 78 Right Radial] Respiratory 18 20 16 Rate Blood Pressure 113/52 104/56 O2 Sat by Pulse 98 98 Oximetry Constitutional: no acute distress, alert Eyes: non-icteric ENT: oropharynx moist Neck: supple, no JVD Ascultation: Bilateral: clear, diminished breath sounds Cardiovascular: irregular rhythm Gastrointestinal: normoactive bowel sounds, non-distended Integumentary: normal Extremities: no cyanosis Neurologic: normal mental status, non-focal exam Psychiatric: mood appropriate, affect normal CBC and BMP: 12/07/18 05:20 12/08/18 05:47 ABG, PT/INR, D-dimer: PT/INR, D-dimer PT 17.1 Sec. (12.2-14.9) H 12/06/18 10:18 INR 1.35 (0.87-1.13) H 12/06/18 10:18 Abnormal lab findings: Abnormal Labs 12/06/18 12/06/18 12/06/18 08:58 08:58 10:18 RBC 3.23 L Hgb 8.6 L Hct 28.5 L MCV MCH 27 L MCHC 30 L RDW 26.0 H Ward % (Auto) 10.3 H Eos % (Auto) 7.9 H Eos # 0.6 H PT INR Sodium 136 L Potassium Chloride Carbon Dioxide BUN 26 H Creatinine 2.0 H Glucose 142 H POC Glucose Hemoglobin A1c Iron Troponin T 0.071 H NT-Pro-B Natriuret Pep 4927 H HDL Cholesterol 37 L 12/06/18 12/06/18 12/06/18 10:18 15:37 19:31 RBC Hgb Hct MCV MCH MCHC RDW Ward % (Auto) Eos % (Auto) Eos # PT 17.1 H INR 1.35 H Sodium Potassium Chloride Carbon Dioxide BUN Creatinine Glucose POC Glucose 161 H Hemoglobin A1c 7.2 H Iron Troponin T NT-Pro-B Natriuret Pep HDL Cholesterol 12/07/18 12/07/18 12/07/18 05:20 05:20 12:01 RBC 2.92 L Hgb 7.7 L Hct 24.3 L MCV 83 L MCH 27 L MCHC RDW 24.9 H Ward % (Auto) Eos % (Auto) Eos # PT INR Sodium Potassium Chloride 97.9 L Carbon Dioxide BUN 28 H Creatinine 1.8 H Glucose POC Glucose 141 H Hemoglobin A1c Iron Troponin T NT-Pro-B Natriuret Pep HDL Cholesterol 12/08/18 12/08/18 12/08/18 01:05 05:47 05:47 RBC Hgb Hct MCV MCH MCHC RDW Ward % (Auto) Eos % (Auto) Eos # PT INR Sodium Potassium 3.5 L Chloride 97.1 L Carbon Dioxide 32 H BUN 29 H Creatinine 1.8 H Glucose 104 H POC Glucose 110 H Hemoglobin A1c Iron 45 L Troponin T NT-Pro-B Natriuret Pep HDL Cholesterol
--- NOTE | 2018-12-08 13:35 | Progress Note ---
Assessment and Plan Assessment and plan: Patient is a 87 yo man with a history of HTN, borderline DM, OA, Obesity, HAP right pneumonia with bacteremia, Systolic CHF with estimated EF 45-50%, Non- ischemic troponin elevation, Atrial Fib, Staph Hominis bacteremia, Right Pleural Effusion, colon cancer s/p removal 2006 in the [facility], CKD 3 (cr was 1.7 on 11/12/18), AAA s/p EVAR here in July 2018 and newly diagnosis hypothyroidism on 10/2018 hospitalization (just discharged on 11/17/2018) who presents to [facility] with severe progressively worse constant JC/SOB with minimal activity for the last 2-3 days without relieving factors associated with orthopnea, and worsening leg swelling. He was sent home with oxygen but he doesn't use it. He states the tank is empty. * pCXR read as no acute findings, stable cardiomegaly, peripheral fibrotic changes R>L * Troponin T 0.071 and also 0.073 on * proBNP 4927 and it was 7891 on 11/06/2018 * Cr 2.0 now, was 1.7 on 11/12/18 -Acute on Chronic systolic heart failure: treat with iv lasix, consult Cardiology -Acute on chronic hypoxic respiratory failure, noncompliant with using O2: treat the heart failure, he was 84% on RA -Acute on Chronic Renal failure stage 3, vasomotor nephropathy: treat the CHF, monitor closely, consult nephrology -Atrial fibrillation: continue coreg -Hypothyroidism: check TSH==>normal now -Diabetes mellitus type 2 suspected; check a1c, ssi, ada diet -History of AAA repair: Vascular has re-evaluated last admission in October, because of the bacteremia, -recent Staph Hominis bacteremia, pt should have finished the 2 weeks treatment: recheck blood culture DVT prophylaxis reviewed, Eliquis held due to worsening renal function, use sq heparin Disposition: continue inpatient care, SNF Home reconciliation: Eliquis not listed and the losartan both held due to ARF Diet: ada/cardiac full code 12/07/17: Patient had a 6 beat run of VTach (8:05am) while receiving breathing treatment, I was in the room talking to him; he was asymptomatic. Son Claudia at bedside. Cardiology following. History Interval history: Patient was seen and examined. Follow-up on current diagnosis of respiratory failure. Overnight uneventful. Patient denies any chest pain, shortness breath, nausea/vomiting or severe headaches. Imaging, nursing note, chart, labs and old chart reviewed. Discussed with patient. Claudia. Hospitalist Physical - Constitutional Vitals: Temp Pulse Resp BP Pulse Ox 98.3 F 78 16 104/56 98 12/08/18 08:16 12/08/18 08:24 12/08/18 08:24 12/08/18 08:16 12/08/18 08:16 General appearance: Present: no acute distress Results - Labs CBC & Chem 7: 12/07/18 05:20 12/08/18 05:47 Labs: Laboratory Last Values WBC 6.4 K/mm3 (4.5-11.0) 12/07/18 05:20 RBC 2.92 M/mm3 (3.65-5.03) L 12/07/18 05:20 Hgb 7.7 gm/dl (11.8-15.2) L 12/07/18 05:20 Hct 24.3 % (35.5-45.6) L 12/07/18 05:20 MCV 83 fl (84-94) L 12/07/18 05:20 MCH 27 pg (28-32) L 12/07/18 05:20 MCHC 32 % (32-34) 12/07/18 05:20 RDW 24.9 % (13.2-15.2) H 12/07/18 05:20 Plt Count 226 K/mm3 (140-440) 12/07/18 05:20 Lymph % (Auto) 19.1 % (13.4-35.0) 12/06/18 08:58 [place] % (Auto) 10.3 % (0.0-7.3) H 12/06/18 08:58 Eos % (Auto) 7.9 % (0.0-4.3) H 12/06/18 08:58 Baso % (Auto) 0.6 % (0.0-1.8) 12/06/18 08:58 Lymph # 1.5 K/mm3 (1.2-5.4) 12/06/18 08:58 [place] # 0.8 K/mm3 (0.0-0.8) 12/06/18 08:58 Eos # 0.6 K/mm3 (0.0-0.4) H 12/06/18 08:58 Baso # 0.0 K/mm3 (0.0-0.1) 12/06/18 08:58 Add Manual Diff Complete 12/06/18 08:58 Seg Neutrophils % 62.1 % (40.0-70.0) 12/06/18 08:58 Seg Neutrophils # 4.7 K/mm3 (1.8-7.7) 12/06/18 08:58 PT 17.1 Sec. (12.2-14.9) H 12/06/18 10:18 INR 1.35 (0.87-1.13) H 12/06/18 10:18 APTT 35.2 Sec. (24.2-36.6) 12/06/18 10:18 Sodium 141 mmol/L (137-145) 12/08/18 05:47 Potassium 3.5 mmol/L (3.6-5.0) L 12/08/18 05:47 Chloride 97.1 mmol/L (98-107) L 12/08/18 05:47 Carbon Dioxide 32 mmol/L (22-30) H 12/08/18 05:47 Anion Gap 15 mmol/L 12/08/18 05:47 BUN 29 mg/dL (9-20) H 12/08/18 05:47 Creatinine 1.8 mg/dL (0.8-1.5) H 12/08/18 05:47 Estimated GFR 43 ml/min 12/08/18 05:47 BUN/Creatinine Ratio 16 % 12/08/18 05:47 Glucose 104 mg/dL (75-100) H 12/08/18 05:47 POC Glucose 110 (70-105) H 12/08/18 01:05 Hemoglobin A1c 7.2 % (4-6) H 12/06/18 15:37 Calcium 8.4 mg/dL (8.4-10.2) 12/08/18 05:47 Magnesium 1.90 mg/dL (1.7-2.3) 12/07/18 05:20 Iron 45 ug/dL (49-181) L 12/08/18 05:47 Ferritin 137.9 ng/mL (13.0-400.0) 12/08/18 05:47 Troponin T 0.071 ng/mL (0.00-0.029) H 12/06/18 10:18 NT-Pro-B Natriuret Pep 4927 pg/mL (0-900) H 12/06/18 10:18 Triglycerides 113 mg/dL (2-149) 12/06/18 10:18 Cholesterol 164 mg/dL (50-199) 12/06/18 10:18 LDL Cholesterol Direct 118 mg/dL (50-130) 12/06/18 10:18 HDL Cholesterol 37 mg/dL (40-59) L 12/06/18 10:18 Cholesterol/HDL Ratio 4.43 % 12/06/18 10:18 Vitamin B12 257.7 pg/mL (211-911) 12/08/18 05:47 Folate 7.76 ng/mL (7.3-26.0) 12/08/18 05:47 TSH 3.230 mlU/mL (0.270-4.200) 12/07/18 05:20 Nutrition/Malnutrition Assess - Dietary Evaluation Nutrition/Malnutrition Findings: Nutrition Notes Start: 12/07/18 15:34 Freq: Status: Active Protocol: Document 12/07/18 15:34 RM (Rec: 12/07/18 15:38 RM [email or web address]) Nutrition Notes Need for Assessment generated from: MST Initial or Follow up Brief Note Current Diagnoses Acute Kidney Injury CKD(stage I-IV) Diabetes Hypertension Heart Failure Other Pertinent Diagnosis Acute on Chronic Respiratory Failure,Hypothyroidism Current Diet Cardiac/Consistent Carb Labs/Tests HgbA1c 7.2 Medications Lasix Height 5 ft 6 in Weight 95.254 kg Usual Body Weight 106.82 kg [place] Body Weight (lbs) 142.0 BMI 33.9 Weight change and time frame Wt loss likely d/t fluid change Subjective/Other Information Pt screened for malnutrition. Pt stated that he appetite is good and that he eats all of his meals. Stated UBW was 235 lbs 6 months ago. Declined DM diet education. Burn Absent Trauma Absent Nutrition Intervention Revisit per MD consult or patient Sign Off request:
[2018-12-08 14:19] LABS: Bilirubin,Urine NEG (Negative); Blood,Urine SM (Negative); Color,Urine Yellow (Yellow); Mucus,Urine FEW /HPF; Protein,Urine <15 mg/dL mg/dL (Negative); Urobilinogen,Urine < 2.0 mg/dL (<2.0); WBC,Urine < 1.0 /HPF (0.0-6.0)
[2018-12-08 14:36] LABS: Creatinine,Urine 48.6 mg/dL (0.1-20.0)
[2018-12-08] MEDS: SYNTHROID PO SCH (17:52)
[2018-12-08] MEDS: LATANOPROST 0.005% OU SCH (21:04)
[2018-12-09] MEDS: HumaLOG SUB-Q SCH ×4 (01:20→18:29)
[2018-12-09] MEDS: ALPHAGAN P 0.15% OU SCH ×4 (01:20→21:01)
[2018-12-09] MEDS: LASIX IV SCH (05:40)
--- NOTE | 2018-12-09 10:33 | Progress Note ---
Addendum entered and electronically signed by CJ TREJO MD 12/09/18 11:13: No heart failure findings on exam No JVD, No edema Right sided crackles on exam with clear left lung morton H/H trending downward therefore no OAC for persistent atrial fibrillation Change lasix to po Continue afterload reduction Pulmonary and hematology work-up is warranted Outpatient cardiac evaluation is recommended when back in [facility] Original Note: Assessment and Plan Shortness of breath cxr reports cardiomegaly with peripheral fibrotic changes, right greater than the left. Anemia Acute renal failure History of AAA repair Permanent atrial fibrillation, rate control patient is not a candidate for oral anticoagulation due to significant anemia. An echocardiogram 10/2018 reports a left ventricular ejection fraction 45-50%. Recommend: Continue rate controlling agents for persistent atrial fibrillation. Otherwise, conservative cardiac management. Subjective Date of service: 12/09/18 Principal diagnosis: heart failure, hypoxemia Interval history: Patient has no complaints. He reports his breathing is better. Objective Vital Signs Temp Pulse Resp BP Pulse Ox 12/09/18 08:13 97.6 F 75 16 97/41 100 12/09/18 05:31 98.4 F 77 18 128/61 96 12/09/18 00:03 98.1 F 89 18 102/52 99 12/08/18 20:00 69 12/08/18 19:21 98.5 F 71 18 109/66 96 12/08/18 17:57 98.0 F 74 20 121/56 94 12/08/18 13:50 97.5 F L 74 18 86/47 98 12/08/18 12:00 74 - Physical Examination General: No Apparent Distress HEENT: Positive: PERRL Neck: Positive: trachea midline Cardiac: Positive: irregularly irregular Lungs: Positive: Decreased Breath Sounds Neuro: Positive: Grossly Intact Extremities: Absent: edema
[2018-12-09] MEDS: PROTONIX PO SCH (10:41)
[2018-12-09] MEDS: NORVASC PO SCH (10:41)
[2018-12-09] MEDS: CATAPRES PO SCH ×2 (10:42→21:01)
[2018-12-09] MEDS: COREG PO SCH (10:42)
[2018-12-09] MEDS: HEPARIN SUB-Q SCH ×2 (11:15→21:01)
--- NOTE | 2018-12-09 12:33 | Progress Note ---
Assessment and Plan Dyspnea secondary to heart failure exacerbation and possibly lack of oxygen support Congestive heart failure with exacerbation.Controlled A. fib.Improved V. tach episode Hypoxemic respiratory failure per history. Needs follow-up on his oxygen orders prior to discharge Recommendations Diuretics with s.lyte,renal monitoring and CHF management. See cardiology recommendations Continue oxygen support Ambulate patient has tolerated, monitor oximetry on room air Coordinate with therapeutic case manager any additional oxygen need of the above. DVT prophylaxis Can go home pulmonary-orozco, if no additional complains Discussed with patient in detail. All questions answered. Subjective Date of service: 12/09/18 Principal diagnosis: heart failure, hypoxemia Interval history: No respiratory complains. Wants to go home Objective Vital Signs - 12hr 12/09/18 12/09/18 12/09/18 05:31 08:13 10:40 Temperature 98.4 F 97.6 F Pulse Rate 77 75 85 Respiratory 18 16 Rate Blood Pressure 128/61 97/41 143/77 O2 Sat by Pulse 96 100 96 Oximetry 12/09/18 12/09/18 10:41 10:42 Temperature Pulse Rate 88 88 Respiratory Rate Blood Pressure 143/77 143/77 O2 Sat by Pulse Oximetry Constitutional: no acute distress, alert Eyes: non-icteric ENT: oropharynx moist Neck: supple, no JVD Ascultation: Bilateral: clear, diminished breath sounds Cardiovascular: irregular rhythm Gastrointestinal: normoactive bowel sounds, non-distended Integumentary: normal Extremities: no cyanosis Neurologic: normal mental status, non-focal exam Psychiatric: mood appropriate, affect normal CBC and BMP: 12/07/18 05:20 12/08/18 05:47 ABG, PT/INR, D-dimer: PT/INR, D-dimer PT 17.1 Sec. (12.2-14.9) H 12/06/18 10:18 INR 1.35 (0.87-1.13) H 12/06/18 10:18 Abnormal lab findings: Abnormal Labs 12/06/18 12/06/18 12/06/18 08:58 08:58 10:18 RBC 3.23 L Hgb 8.6 L Hct 28.5 L MCV MCH 27 L MCHC 30 L RDW 26.0 H [place] % (Auto) 10.3 H Eos % (Auto) 7.9 H Eos # 0.6 H PT INR Sodium 136 L Potassium Chloride Carbon Dioxide BUN 26 H Creatinine 2.0 H Glucose 142 H POC Glucose Hemoglobin A1c Iron Troponin T 0.071 H NT-Pro-B Natriuret Pep 4927 H HDL Cholesterol 37 L Urine Creatinine Urine Total Protein 12/06/18 12/06/18 12/06/18 10:18 15:37 19:31 RBC Hgb Hct MCV MCH MCHC RDW [place] % (Auto) Eos % (Auto) Eos # PT 17.1 H INR 1.35 H Sodium Potassium Chloride Carbon Dioxide BUN Creatinine Glucose POC Glucose 161 H Hemoglobin A1c 7.2 H Iron Troponin T NT-Pro-B Natriuret Pep HDL Cholesterol Urine Creatinine Urine Total Protein 12/07/18 12/07/18 12/07/18 05:20 05:20 12:01 RBC 2.92 L Hgb 7.7 L Hct 24.3 L MCV 83 L MCH 27 L MCHC RDW 24.9 H [place] % (Auto) Eos % (Auto) Eos # PT INR Sodium Potassium Chloride 97.9 L Carbon Dioxide BUN 28 H Creatinine 1.8 H Glucose POC Glucose 141 H Hemoglobin A1c Iron Troponin T NT-Pro-B Natriuret Pep HDL Cholesterol Urine Creatinine Urine Total Protein 12/08/18 12/08/18 12/08/18 01:05 05:47 05:47 RBC Hgb Hct MCV MCH MCHC RDW [place] % (Auto) Eos % (Auto) Eos # PT INR Sodium Potassium 3.5 L Chloride 97.1 L Carbon Dioxide 32 H BUN 29 H Creatinine 1.8 H Glucose 104 H POC Glucose 110 H Hemoglobin A1c Iron 45 L Troponin T NT-Pro-B Natriuret Pep HDL Cholesterol Urine Creatinine Urine Total Protein 12/08/18 12/08/18 12/08/18 13:54 14:00 17:58 RBC Hgb Hct MCV MCH MCHC RDW [place] % (Auto) Eos % (Auto) Eos # PT INR Sodium Potassium Chloride Carbon Dioxide BUN Creatinine Glucose POC Glucose 149 H 139 H Hemoglobin A1c Iron Troponin T NT-Pro-B Natriuret Pep HDL Cholesterol Urine Creatinine 48.6 H Urine Total Protein 17 H 12/09/18 12/09/18 12/09/18 01:04 05:33 11:02 RBC Hgb Hct MCV MCH MCHC RDW [place] % (Auto) Eos % (Auto) Eos # PT INR Sodium Potassium Chloride Carbon Dioxide BUN Creatinine Glucose POC Glucose 120 H 109 H 176 H Hemoglobin A1c Iron Troponin T NT-Pro-B Natriuret Pep HDL Cholesterol Urine Creatinine Urine Total Protein
--- NOTE | 2018-12-09 13:34 | Progress Note ---
Assessment and Plan Assessment and plan: Patient is a 87 yo man with a history of HTN, borderline DM, OA, Obesity, HAP right pneumonia with bacteremia, Systolic CHF with estimated EF 45-50%, Non- ischemic troponin elevation, Atrial Fib, Staph Hominis bacteremia, Right Pleural Effusion, colon cancer s/p removal 2006 in the [facility], CKD 3 (cr was 1.7 on 11/12/18), AAA s/p EVAR here in July 2018 and newly diagnosis hypothyroidism on 10/2018 hospitalization (just discharged on 11/17/2018) who presents to [facility] ED with severe progressively worse constant JC/SOB with minimal activity for the last 2-3 days without relieving factors associated with orthopnea, and worsening leg swelling. He was sent home with oxygen but he doesn't use it. He states the tank is empty. * pCXR read as no acute findings, stable cardiomegaly, peripheral fibrotic changes R>L * Troponin T 0.071 and also 0.073 on * proBNP 4927 and it was 7891 on 11/06/2018 * Cr 2.0 now, was 1.7 on 11/12/18 -Acute on Chronic systolic heart failure: treat with iv lasix, consult Cardiology -Acute on chronic hypoxic respiratory failure, noncompliant with using O2: treat the heart failure, he was 84% on RA -Acute on Chronic Renal failure stage 3, vasomotor nephropathy: treat the CHF, monitor closely, consult nephrology -Atrial fibrillation: continue coreg, off Eliqus due to renal failure, if ARF improved possible restart at low dose -Hypothyroidism: check TSH==>normal now -Diabetes mellitus type 2 suspected; check a1c, ssi, ada diet -History of AAA repair: Vascular has re-evaluated last admission in October, because of the bacteremia, -recent Staph Hominis bacteremia, pt should have finished the 2 weeks treatment: recheck blood culture DVT prophylaxis reviewed, Eliquis held due to worsening renal function, use sq heparin Disposition: continue inpatient care, SNF Home reconciliation: Eliquis not listed and the losartan both held due to ARF Diet: ada/cardiac full code 12/07/17: Patient had a 6 beat run of VTach (8:05am) while receiving breathing treatment, I was in the room talking to him; he was asymptomatic. Son Claudia at bedside. Cardiology following. SNF hopefully tomorrow per Case management History Interval history: Patient was seen and examined. Follow-up on current diagnosis of respiratory failure. Overnight uneventful. Patient denies any chest pain, shortness breath, nausea/vomiting or severe headaches. Imaging, nursing note, chart, labs and old chart reviewed. Discussed with patient. Claudia. Hospitalist Physical - Physical exam Narrative exam: Gen: WDWN, NAD, Awake, Alert, Orientated HEENT: NCAT, EOMI, PERRL, OP Clear Neck: supple, no adenopathy, no thyromegaly, no JVD CVS/Heart: RRR, normal S1S2, pulses present bilaterally Chest/Lungs: bs improved, Symmetrical chest expansion, good air entry bilaterally GI/Abdomen: soft, NTND, good bowel sounds, no guarding or rebound /Bladder: no suprapubic tenderness, no CVA or paraspinal tenderness Extermity/Skin: leg edema much improved, no obvious rash MSK: FROM x 4 Neuro: CN 2-12 grossly intact, no new focal deficits Psych: calm - Constitutional Vitals: Temp Pulse Resp BP Pulse Ox 97.6 F 88 16 143/77 96 12/09/18 08:13 12/09/18 10:42 12/09/18 08:13 12/09/18 10:42 12/09/18 10:40 General appearance: Present: no acute distress Results - Labs CBC & Chem 7: 12/07/18 05:20 12/08/18 05:47 Labs: Laboratory Last Values WBC 6.4 K/mm3 (4.5-11.0) 12/07/18 05:20 RBC 2.92 M/mm3 (3.65-5.03) L 12/07/18 05:20 Hgb 7.7 gm/dl (11.8-15.2) L 12/07/18 05:20 Hct 24.3 % (35.5-45.6) L 12/07/18 05:20 MCV 83 fl (84-94) L 12/07/18 05:20 MCH 27 pg (28-32) L 12/07/18 05:20 MCHC 32 % (32-34) 12/07/18 05:20 RDW 24.9 % (13.2-15.2) H 12/07/18 05:20 Plt Count 226 K/mm3 (140-440) 12/07/18 05:20 Lymph % (Auto) 19.1 % (13.4-35.0) 12/06/18 08:58 [place] % (Auto) 10.3 % (0.0-7.3) H 12/06/18 08:58 Eos % (Auto) 7.9 % (0.0-4.3) H 12/06/18 08:58 Baso % (Auto) 0.6 % (0.0-1.8) 12/06/18 08:58 Lymph # 1.5 K/mm3 (1.2-5.4) 12/06/18 08:58 [place] # 0.8 K/mm3 (0.0-0.8) 12/06/18 08:58 Eos # 0.6 K/mm3 (0.0-0.4) H 12/06/18 08:58 Baso # 0.0 K/mm3 (0.0-0.1) 12/06/18 08:58 Add Manual Diff Complete 12/06/18 08:58 Seg Neutrophils % 62.1 % (40.0-70.0) 12/06/18 08:58 Seg Neutrophils # 4.7 K/mm3 (1.8-7.7) 12/06/18 08:58 PT 17.1 Sec. (12.2-14.9) H 12/06/18 10:18 INR 1.35 (0.87-1.13) H 12/06/18 10:18 APTT 35.2 Sec. (24.2-36.6) 12/06/18 10:18 Sodium 141 mmol/L (137-145) 12/08/18 05:47 Potassium 3.5 mmol/L (3.6-5.0) L 12/08/18 05:47 Chloride 97.1 mmol/L (98-107) L 12/08/18 05:47 Carbon Dioxide 32 mmol/L (22-30) H 12/08/18 05:47 Anion Gap 15 mmol/L 12/08/18 05:47 BUN 29 mg/dL (9-20) H 12/08/18 05:47 Creatinine 1.8 mg/dL (0.8-1.5) H 12/08/18 05:47 Estimated GFR 43 ml/min 12/08/18 05:47 BUN/Creatinine Ratio 16 % 12/08/18 05:47 Glucose 104 mg/dL (75-100) H 12/08/18 05:47 POC Glucose 176 (70-105) H 12/09/18 11:02 Hemoglobin A1c 7.2 % (4-6) H 12/06/18 15:37 Calcium 8.4 mg/dL (8.4-10.2) 12/08/18 05:47 Magnesium 1.90 mg/dL (1.7-2.3) 12/07/18 05:20 Iron 45 ug/dL (49-181) L 12/08/18 05:47 Ferritin 137.9 ng/mL (13.0-400.0) 12/08/18 05:47 Troponin T 0.071 ng/mL (0.00-0.029) H 12/06/18 10:18 NT-Pro-B Natriuret Pep 4927 pg/mL (0-900) H 12/06/18 10:18 Triglycerides 113 mg/dL (2-149) 12/06/18 10:18 Cholesterol 164 mg/dL (50-199) 12/06/18 10:18 LDL Cholesterol Direct 118 mg/dL (50-130) 12/06/18 10:18 HDL Cholesterol 37 mg/dL (40-59) L 12/06/18 10:18 Cholesterol/HDL Ratio 4.43 % 12/06/18 10:18 Vitamin B12 257.7 pg/mL (211-911) 12/08/18 05:47 Folate 7.76 ng/mL (7.3-26.0) 12/08/18 05:47 TSH 3.230 mlU/mL (0.270-4.200) 12/07/18 05:20 Urine Color Yellow (Yellow) 12/08/18 14:00 Urine Turbidity Clear (Clear) 12/08/18 14:00 Urine pH 6.0 (5.0-7.0) 12/08/18 14:00 Ur Specific Echo 1.006 (1.003-1.030) 12/08/18 14:00 Urine Protein <15 mg/dl mg/dL (Negative) 12/08/18 14:00 Urine Glucose (UA) Neg mg/dL (Negative) 12/08/18 14:00 Urine Ketones Neg mg/dL (Negative) 12/08/18 14:00 Urine Blood Sm (Negative) 12/08/18 14:00 Urine Nitrite Neg (Negative) 12/08/18 14:00 Urine Bilirubin Neg (Negative) 12/08/18 14:00 Urine Urobilinogen < 2.0 mg/dL (<2.0) 12/08/18 14:00 Ur Leukocyte Esterase Neg (Negative) 12/08/18 14:00 Urine WBC (Auto) < 1.0 /HPF (0.0-6.0) 12/08/18 14:00 Urine RBC (Auto) 1.0 /HPF (0.0-6.0) 12/08/18 14:00 U Epithel Cells (Auto) < 1.0 /HPF (0-13.0) 12/08/18 14:00 Urine Mucus Few /HPF 12/08/18 14:00 Urine Creatinine 48.6 mg/dL (0.1-20.0) H 12/08/18 14:00 Urine Total Protein 17 mg/dL (5-11.8) H 12/08/18 14:00 Nutrition/Malnutrition Assess - Dietary Evaluation Nutrition/Malnutrition Findings: Nutrition Notes Start: 12/07/18 15:34 Freq: Status: Active Protocol: Document 12/07/18 15:34 RM (Rec: 12/07/18 15:38 RM [id number]) Nutrition Notes Need for Assessment generated from: MST Initial or Follow up Brief Note Current Diagnosis Acute Kidney Injury CKD(stage I-IV) Diabetes Hypertension Heart Failure Other Pertinent Diagnosis Acute on Chronic Respiratory Failure,Hypothyroidism Current Diet Cardiac/Consistent Carb Labs/Tests HgbA1c 7.2 Pertinent Medications Lasix Height 5 ft 6 in Weight 95.254 kg Usual Body Weight 106.82 kg [place] Body Weight (lbs) 142.0 BMI 33.9 Weight change and time frame Wt loss likely d/t fluid change Subjective/Other Information Pt screened for malnutrition. Pt stated that he appetite is good and that he eats all of his meals. Stated UBW was 235 lbs 6 months ago. Declined DM diet education. Burn Absent Trauma Absent Nutrition Intervention Revisit per MD consult or patient Sign Off request:
--- NOTE | 2018-12-09 14:07 | Progress Note ---
Assessment and Plan - Patient Problems (1) Acute on chronic systolic heart failure Current Visit: Yes Status: Acute Plan to address problem: Now on by mouth Lasix (2) Acute kidney injury Current Visit: Yes Status: Acute Plan to address problem: Vasomotor nephropathy secondary to acute cardiorenal syndrome. Improving. May be back to his baseline (3) Type 2 diabetes mellitus with diabetic chronic kidney disease Current Visit: Yes Status: Acute Plan to address problem: Blood sugar control by primary attending (4) Hypertensive chronic kidney disease with stage 1 through stage 4 chronic kidney disease, or unspecified chronic kidney disease Current Visit: Yes Status: Acute Plan to address problem: Follow blood pressure and current medications (5) Anemia in chronic kidney disease Current Visit: Yes Status: Acute Plan to address problem: Hgb decreasing. B12 low normal. Folic acid normal. Give a dose of vitamin B12. 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 Kidney function is now back to close to his baseline. Subjective Date of service: 12/09/18 Principal diagnosis: chronic kidney disease Interval history: Patient seen lying in bed. Son at bedside. He has no new complaints. Still dyspneic on exertion but much better Objective - Exam Narrative Exam: Elderly -[place] male lying in bed in no acute distress, son at the bedside HEENT: NCAT, pink oral mucous membrane Neck: Supple, no venous distention CVS: S1S2 irregular with no murmur, rub or gallop Chest: Clear to auscultation Abdomen: Protuberant, soft, periumbilical hernia, easily reducible, nontender, no organomegaly, bowel sounds are present Extremities: No edema : deferred Skin: Hyperpigmentation in the feet and lower legs Neuro: Awake, alert no focal deficits - Vital Signs Vital signs: Vital Signs - 12hr 12/09/18 12/09/18 12/09/18 05:31 08:13 10:40 Temperature 98.4 F 97.6 F Pulse Rate 77 75 85 Respiratory 18 16 Rate Blood Pressure 128/61 97/41 143/77 O2 Sat by Pulse 96 100 96 Oximetry 12/09/18 12/09/18 10:41 10:42 Temperature Pulse Rate 88 88 Respiratory Rate Blood Pressure 143/77 143/77 O2 Sat by Pulse Oximetry - Lab 12/07/18 05:20 12/08/18 05:47 Most recent lab results Calcium 8.4 mg/dL (8.4-10.2) 12/08/18 05:47 Magnesium 1.90 mg/dL (1.7-2.3) 12/07/18 05:20 Urine Creatinine 48.6 mg/dL (0.1-20.0) H 12/08/18 14:00 Urine Total Protein 17 mg/dL (5-11.8) H 12/08/18 14:00 Medications & Allergies - Medications Allergies/Adverse Reactions: Allergies No Known Allergies Allergy (Verified 07/17/18 07:04) Home Medications: Home Medications Medication Instructions Recorded Confirmed Last Taken Type Carvedilol [Coreg] 12.5 mg PO DAILY 06/18/18 12/06/18 07/26/18 History 12.5mg Losartan Potassium [Cozaar] 25 mg PO DAILY 06/18/18 12/06/18 07/26/18 History 25mg amLODIPine [Norvasc] 5 mg PO DAILY 06/18/18 12/06/18 07/26/18 History 5mg Pantoprazole [Protonix TAB] 40 mg PO QDAY 07/17/18 12/06/18 07/26/18 History 40mg Latanoprost 0.005% 1 drop OU HS 07/27/18 12/06/18 07/26/18 History 1 drop oxyCODONE /ACETAMINOPHEN [Percocet 1 tab PO Q6HR PRN #20 tablet 07/29/18 12/06/18 Unknown Rx 5/325 mg] Brimonidine 0.15% [Alphagan P 1 drops OU Q8H 11/06/18 12/06/18 Unknown History 0.15%] cloNIDine [Catapres] 0.1 mg PO BID 11/06/18 12/06/18 Unknown History Latanoprost 0.005% Eye Drop 1 drop OU HS 11/07/18 12/06/18 Unknown History Furosemide [Lasix TAB] 40 mg PO DAILY #30 tablet 11/16/18 12/06/18 Unknown Rx Levothyroxine [Synthroid] 150 mcg PO DAILY@0600 #30 tablet 11/16/18 12/06/18 Unknown Rx Active Medications: Generic Name Dose Route Start Last Admin Trade Name Freq PRN Reason Stop Dose Admin Albuterol 2.5 mg 12/07/18 16:39 Proventil IH Q4HRT PRN Shortness Of Breath Amlodipine Besylate 5 mg 12/06/18 15:00 12/09/18 10:41 Norvasc PO 5 mg DAILY KANG Administration Brimonidine Tartrate 1 drops 12/06/18 15:00 12/09/18 01:20 Alphagan P 0.15% OU Not Given Q8H KANG Carvedilol 12.5 mg 12/06/18 15:00 12/09/18 10:42 Coreg PO 12.5 mg DAILY KANG Administration Clonidine HCl 0.1 mg 12/06/18 22:00 12/09/18 10:42 Catapres PO 0.1 mg BID KANG Administration Dextrose 50 ml 12/06/18 14:14 D50w (25gm) Syringe IV PRN PRN Hypoglycemia Furosemide 40 mg 12/09/18 18:00 Lasix PO 0600,1800 [facility] Heparin Sodium (Porcine) 5,000 unit 12/07/18 14:16 12/09/18 11:15 Heparin SUB-Q 5,000 unit Q12HR KANG Administration Insulin Human Lispro 0 unit 12/06/18 15:00 12/09/18 07:46 Humalog SUB-Q Not Given Q6HR [facility] Protocol Latanoprost 1 drops 12/06/18 22:00 12/08/18 21:04 Latanoprost 0.005% OU 1 drops HS KANG Administration Levothyroxine Sodium 150 mcg 12/06/18 23:15 12/08/18 17:52 Synthroid PO 150 mcg DAILY@1800 KANG Administration Oxycodone/Acetaminophen 1 tab 12/06/18 14:06 12/07/18 11:00 Percocet 5/325 PO 1 tab Q6H PRN Administration Pain, Moderate (4-6) Pantoprazole Sodium 40 mg 12/07/18 10:00 12/09/18 10:41 Protonix PO 40 mg QDAY KANG Administration
[2018-12-09] MEDS ORDERED: VITAMIN B-12 IM ONE (15:00)
[2018-12-09] MEDS: LASIX PO SCH (17:37)
[2018-12-09] MEDS: SYNTHROID PO SCH (17:37)
[2018-12-09] MEDS: LATANOPROST 0.005% OU SCH (21:01)
[2018-12-10] MEDS: ALPHAGAN P 0.15% OU SCH ×2 (01:19→08:55)
[2018-12-10] MEDS: HumaLOG SUB-Q SCH ×2 (01:20→08:02)
[2018-12-10] MEDS: LASIX PO SCH (05:17)
[2018-12-10 06:31] LABS: Hematocrit 25.3 % (35.5-45.6); Hemoglobin 8.1 gm/dl (11.8-15.2); Mean Corpuscular HGB Conc 32 % (32-34); Mean Corpuscular Volume 84 fl (84-94); Platelet Count 252 K/mm3 (140-440); Red Blood Count 3.01 M/mm3 (3.65-5.03)
[2018-12-10 06:34] LABS: Red Cell Distribution Width 24.2 % (13.2-15.2)
[2018-12-10 06:47] LABS: Calcium 8.5 mg/dL (8.4-10.2)
--- NOTE | 2018-12-10 10:52 | Discharge Summary ---
Providers - Providers Date of Admission: 12/06/18 10:25 Date of discharge: 12/10/18 Attending physician: THAI MCKEON 12/06/18 14:08 Consult to Physician [CONS] Routine Comment: Consulting Provider: ENDY HANKINS Physician Instructions: Reason For Exam: CHF, pt known to you 12/06/18 14:17 Consult to Physician [CONS] Routine Comment: Consulting Provider: ROSY BURR Physician Instructions: Reason For Exam: ARF 12/06/18 14:20 Consult to Case Management [CONS] Routine Services Needed at Discharge: Order Filler Notified:: jm Time called:: 11:45 Additional Physician Instructions: SNF Placement as per family request: Please send out Sj. Occupational Therapy Evaluate and Treat [CONS] Routine Comment: Reason For Exam: ADLs evaluation Physical Therapy Evaluation and Treat [CONS] Routine Comment: Reason For Exam: gait evaluation/ambulatory dysfunction 12/07/18 12:01 Consult to Physician [CONS] Routine Comment: Consulting Provider: PADDY HYMAN Physician Instructions: Reason For Exam: Abnormal cxr Primary care physician: ANNUAL CAMPAIGN MANAGER Hospitalization Condition: Stable Hospital course: Assessment and Plan Assessment and plan: Patient is a 87 yo man with a history of HTN, borderline DM, OA, Obesity, HAP right pneumonia with bacteremia, Systolic CHF with estimated EF 45-50%, Non- ischemic troponin elevation, Atrial Fib, Staph Hominis bacteremia, Right Pleural Effusion, colon cancer s/p removal 2007 in the [facility], CKD 3 (cr was 1.7 on 11/12/18), AAA s/p EVAR here in July 2018 and newly diagnosis hypothyroidism on 10/2018 hospitalization (just discharged on 11/17/2018) who presents to [facility] ED with severe progressively worse constant JC/SOB with minimal activity for the last 2-3 days without relieving factors associated with orthopnea, and worsening leg swelling. He was sent home with oxygen but he doesn't use it. He states the tank is empty. * pCXR read as no acute findings, stable cardiomegaly, peripheral fibrotic changes R>L * Troponin T 0.071 and also 0.073 on * proBNP 4927 and it was 7891 on 11/06/2018 * Cr 2.0 now, was 1.7 on 11/12/18 -Acute on Chronic systolic heart failure: treat with iv lasix, consult Cardiology -Acute on chronic hypoxic respiratory failure, noncompliant with using O2: treat the heart failure, he was 84% on RA -Acute on Chronic Renal failure stage 3, vasomotor nephropathy: treat the CHF, monitor closely, consult nephrology -Atrial fibrillation: continue coreg, off Eliqus due to renal failure, if ARF improved possible restart at low dose -Hypothyroidism: check TSH==>normal now -Diabetes mellitus type 2 suspected; check a1c, ssi, ada diet -History of AAA repair: Vascular has re-evaluated last admission in October, because of the bacteremia, -recent Staph Hominis bacteremia, pt should have finished the 2 weeks treatment: recheck blood culture DVT prophylaxis reviewed, Eliquis held due to worsening renal function, use sq heparin Disposition: continue inpatient care, SNF Home reconciliation: Eliquis not listed and the losartan both held due to ARF Diet: ada/cardiac full code 12/07/17: Patient had a 6 beat run of VTach (8:05am) while receiving breathing treatment, I was in the room talking to him; he was asymptomatic. Son Claudia at bedside. Cardiology following. Disposition: [id number]/[place]-03 SNF W [facility] CERT Core Measure Documentation - Palliative Care Palliative Care/ Comfort Measures: Not Applicable - Core Measures Any of the following diagnoses?: none Exam - Constitutional Vitals: Temp Pulse Resp BP Pulse Ox 98.3 F 69 18 138/86 97 12/10/18 08:42 12/10/18 08:42 12/10/18 08:42 12/10/18 08:42 12/10/18 08:42 General appearance: Present: no acute distress, well-nourished - EENT Eyes: Present: PERRL ENT: hearing intact, clear oral mucosa - Neck Neck: Present: supple, normal ROM - Respiratory Respiratory effort: normal Respiratory: bilateral: CTA - Cardiovascular Heart Sounds: Present: S1 & S2. Absent: rub, click - Extremities Extremities: pulses symmetrical, No edema Peripheral Pulses: within normal limits - Abdominal General gastrointestinal: Present: soft, non-tender, non-distended, normal bowel sounds Male genitourinary: Present: normal - Integumentary Integumentary: Present: clear, warm, dry - Musculoskeletal Musculoskeletal: gait normal, strength equal bilaterally - Psychiatric Psychiatric: appropriate mood/affect, intact judgment & insight - Neurologic Neurologic: CNII-XII intact, moves all extremities Plan Diet: low fat, low cholesterol, low salt, diabetic Follow up with: PRIMARY CARE, [Primary Care Provider] - 3-5 Days
[2018-12-10] MEDS: CATAPRES PO SCH (11:15)
[2018-12-10] MEDS: HEPARIN SUB-Q SCH (11:15)
[2018-12-10] MEDS: COREG PO SCH (11:18)
[2018-12-10] MEDS: NORVASC PO SCH (11:19)
[2018-12-10] MEDS: PROTONIX PO SCH (11:19)
--- NOTE | 2018-12-10 11:20 | Progress Note ---
Addendum entered and electronically signed by ENDY HANKINS MD 12/10/18 11:30: I have ordered a CAT scan of the lungs to get a better picture of the pulmonary pathology that is responsible for the persistent unilateral right lung infiltrate. With respect to his cardiac status, we'll continue carvedilol for atrial fibrillation, and note that the patient is not a candidate for oral anticoagulation due to chronic anemia. Original Note: Assessment and Plan Shortness of breath cxr reports cardiomegaly with peripheral fibrotic changes, right greater than the left. Anemia Acute renal failure History of AAA repair Permanent atrial fibrillation, rate control patient is not a candidate for oral anticoagulation due to significant anemia. An echocardiogram 10/2018 reports a left ventricular ejection fraction 45-50%. Recommend: Continue rate controlling agents for persistent atrial fibrillation. Otherwise, conservative cardiac management. Subjective Date of service: 12/10/18 Principal diagnosis: chronic kidney disease Interval history: Patient is resting in bed comfortably. He has no cardiac complaints. Objective Vital Signs Temp Pulse Resp BP Pulse Ox 12/10/18 08:42 98.3 F 69 18 138/86 97 12/10/18 04:29 98.2 F 79 16 92/56 98 12/09/18 23:29 66 12 128/59 97 12/09/18 23:00 98.6 F 12/09/18 22:00 70 12/09/18 19:46 98.1 F 71 16 110/69 99 12/09/18 17:01 98.6 F 73 20 110/57 99 - Physical Examination General: No Apparent Distress HEENT: Positive: PERRL Neck: Positive: trachea midline Cardiac: Positive: irregularly irregular Lungs: Positive: Decreased Breath Sounds Neuro: Positive: Grossly Intact Extremities: Absent: edema - Labs and Meds CBC 12/10/18 Range/Units 05:51 WBC 5.6 (4.5-11.0) K/mm3 RBC 3.01 L (3.65-5.03) M/mm3 Hgb 8.1 L (11.8-15.2) gm/dl Hct 25.3 L (35.5-45.6) % Plt Count 252 (140-440) K/mm3 Comprehensive Metabolic Panel 12/10/18 Range/Units 05:51 Sodium 140 (137-145) mmol/L Potassium 3.4 L (3.6-5.0) mmol/L Chloride 97.2 L (98-107) mmol/L Carbon Dioxide 31 H (22-30) mmol/L BUN 31 H (9-20) mg/dL Creatinine 1.7 H (0.8-1.5) mg/dL Glucose 117 H (75-100) mg/dL Calcium 8.5 (8.4-10.2) mg/dL
[2018-12-10 11:22] VITALS: BP 121/76
--- NOTE | 2018-12-10 11:37 | Cat Scan Report ---
CT CHEST WITHOUT CONTRAST: HISTORY: Unilateral right lung infiltrate. COMPARISON: 11/15/18. TECHNIQUE: Helical CT in 1.25mm intervals without IV contrast. Sagittal and coronal reformatted images. FINDINGS: Thyroid gland: Normal. Tracheobronchial tree: Normal. Esophagus: Normal. Heart: Mild cardiomegaly is stable. Mild coronary artery calcifications. Pericardium: Normal. Mediastinum: Normal. Lung [place]: The interstitium is prominent bilaterally, more so in the right lung. There is moderate septal thickening with early honeycombing suggested which is most pronounced in the right lung. No evidence for infiltrate, nodule or mass. Pleural Spaces: Small right pleural effusion. No pneumothorax. Musculoskeletal: Intact. Moderate thoracic spondylosis is noted. IMPRESSION: Mild cardiomegaly and small right pleural effusion. Chronic interstitial changes in both lungs, right greater than left. This appears to represent early fibrotic changes. No pneumonic infiltrate is detected.
--- NOTE | 2018-12-10 13:08 | Progress Note ---
Assessment and Plan - Patient Problems (1) Acute on chronic systolic heart failure Current Visit: Yes Status: Acute Plan to address problem: compensated, now on po Lasix (2) Acute kidney injury Current Visit: Yes Status: Acute Plan to address problem: Vasomotor nephropathy secondary to acute cardiorenal syndrome. Improving. (3) Hypertensive chronic kidney disease with stage 1 through stage 4 chronic kidney disease, or unspecified chronic kidney disease Current Visit: Yes Status: Chronic Plan to address problem: Follow blood pressure and current medications (4) Type 2 diabetes mellitus with diabetic chronic kidney disease Current Visit: Yes Status: Chronic Plan to address problem: glucose control as per primary attending (5) Anemia in chronic kidney disease Current Visit: Yes Status: Chronic Plan to address problem: Hgb decreasing. B12 low normal. Folic acid normal. A dose of vitamin B12 was given. 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 Kidney function is now back to close to his baseline Subjective Date of service: 12/10/18 Principal diagnosis: chronic kidney disease Interval history: Pt awake alert, in NAD Objective - Vital Signs Vital signs: Vital Signs - 12hr 12/10/18 12/10/18 12/10/18 04:29 08:42 11:18 Temperature 98.2 F 98.3 F Pulse Rate 79 69 89 Respiratory 16 18 Rate Blood Pressure 92/56 138/86 121/76 O2 Sat by Pulse 98 97 Oximetry 12/10/18 11:19 Temperature Pulse Rate Respiratory Rate Blood Pressure 121/76 O2 Sat by Pulse Oximetry - General Appearance General appearance: well-developed, well-nourished, appears stated age EENT: ATNC, PERRL, mucous membranes moist Neck: no JVD Respiratory: Present: Clear to Ascultation Cardiology: regular, S1S2 Gastrointestinal: normoactive bowel sounds Integumentary: no rash Neurologic: no focal deficit, alert and oriented x3, strength 5/5, CN 3-12 intact - Lab 12/10/18 05:51 12/10/18 05:51 Most recent lab results Calcium 8.5 mg/dL (8.4-10.2) 12/10/18 05:51 Magnesium 1.90 mg/dL (1.7-2.3) 12/07/18 05:20 Urine Creatinine 48.6 mg/dL (0.1-20.0) H 12/08/18 14:00 Urine Total Protein 17 mg/dL (5-11.8) H 12/08/18 14:00 Medications & Allergies - Medications Allergies/Adverse Reactions: Allergies No Known Allergies Allergy (Verified 07/17/18 07:04) Home Medications: Home Medications Medication Instructions Recorded Confirmed Last Taken Type Carvedilol [Coreg] 12.5 mg PO DAILY 06/18/18 12/06/18 07/26/18 History 12.5mg amLODIPine [Norvasc] 5 mg PO DAILY 06/18/18 12/06/18 07/26/18 History 5mg Pantoprazole [Protonix TAB] 40 mg PO QDAY 07/17/18 12/06/18 07/26/18 History 40mg Latanoprost 0.005% 1 drop OU HS 07/27/18 12/06/18 07/26/18 History 1 drop Brimonidine 0.15% [Alphagan P 1 drops OU Q8H 11/06/18 12/06/18 Unknown History 0.15%] cloNIDine [Catapres] 0.1 mg PO BID 11/06/18 12/06/18 Unknown History Latanoprost 0.005% Eye Drop 1 drop OU HS 11/07/18 12/06/18 Unknown History Furosemide [Lasix TAB] 40 mg PO DAILY #30 tablet 11/16/18 12/06/18 Unknown Rx Levothyroxine [Synthroid] 150 mcg PO DAILY@0600 #30 tablet 11/16/18 12/06/18 Unk nown Rx ALBUTEROL NEB's [Proventil 0.083% 2.5 mg IH Q4HRT PRN nebu 12/10/18 Unknown Rx NEBS] Active Medications: Generic Name Dose Route Start Last Admin Trade Name Freq PRN Reason Stop Dose Admin Albuterol 2.5 mg 12/07/18 16:39 Proventil IH Q4HRT PRN Shortness Of Breath Amlodipine Besylate 5 mg 12/06/18 15:00 12/10/18 11:19 Norvasc PO 5 mg DAILY KANG Administration Brimonidine Tartrate 1 drops 12/06/18 15:00 12/10/18 01:19 Alphagan P 0.15% OU Not Given Q8H KANG Carvedilol 12.5 mg 12/06/18 15:00 12/10/18 11:18 Coreg PO 12.5 mg DAILY KANG Administration Clonidine HCl 0.1 mg 12/06/18 22:00 12/09/18 21:01 Catapres PO 0.1 mg BID KANG Administration Dextrose 50 ml 12/06/18 14:14 D50w (25gm) Syringe IV PRN PRN Hypoglycemia Furosemide 40 mg 12/09/18 18:00 12/10/18 05:17 Lasix PO 40 mg 0600,1800 KANG Administration Heparin Sodium (Porcine) 5,000 unit 12/07/18 14:16 12/09/18 21:01 Heparin SUB-Q 5,000 unit Q12HR KANG Administration Insulin Human Lispro 0 unit 12/06/18 15:00 12/10/18 08:02 Humalog SUB-Q Not Given Q6HR [facility] Protocol Latanoprost 1 drops 12/06/18 22:00 12/09/18 21:01 Latanoprost 0.005% OU 1 drops HS KANG Administration Levothyroxine Sodium 150 mcg 12/06/18 23:15 12/09/18 17:37 Synthroid PO 150 mcg DAILY@1800 KANG Administration Oxycodone/Acetaminophen 1 tab 12/06/18 14:06 12/07/18 11:00 Percocet 5/325 PO 1 tab Q6H PRN Administration Pain, Moderate (4-6) Pantoprazole Sodium 40 mg 12/07/18 10:00 12/10/18 11:19 Protonix PO 40 mg QDAY KANG Administration
== END 2018-12-10 13:45 | DRG 682 ==
LOC: ED 08:24 → 4A 10:25
PROVIDERS: ADMIT Internal Medicine; ATTEND Internal Medicine
DX: N17.0 Acute kidney failure with tubular necrosis (principal); I50.23 Acute on chronic systolic (congestive) heart failure; J96.21 Acute and chronic respiratory failure with hypoxia; I13.0 Hypertensive heart and chronic kidney disease with heart failure and stage 1 through stage 4 chronic kidney disease, or unspecified chronic kidney disease; I47.2 Ventricular tachycardia; I48.91 Unspecified atrial fibrillation; E66.9 Obesity, unspecified; E11.22 Type 2 diabetes mellitus with diabetic chronic kidney disease; D63.1 Anemia in chronic kidney disease; I48.0 Paroxysmal atrial fibrillation; I48.2 Chronic atrial fibrillation; N18.3 Chronic kidney disease, stage 3 (moderate); E03.9 Hypothyroidism, unspecified; H40.9 Unspecified glaucoma; Z82.49 Family history of ischemic heart disease and other diseases of the circulatory system; Z68.34 Body mass index [BMI] 34.0-34.9, adult; Z90.49 Acquired absence of other specified parts of digestive tract; Z85.038 Personal history of other malignant neoplasm of large intestine; Z83.3 Family history of diabetes mellitus; Z84.89 Family history of other specified conditions; Z82.3 Family history of stroke
CPT/HCPCS: 36415; 71045; 71250; 80048; 80061; 81001; 82570; 82607; 82728; 82747; 82962; 83036; 83540; 83735; 83880; 84156; 84443; 84484; 85025; 85027; 85610; 85730; 87040; 93005; 93010; 94640; 96372; 96374; 96375; G0378; J1644; J1815; J1940; J3420